=== PATIENT | female | born 1955 | race Asian ===

== ENCOUNTER 2022-10-31 12:42 | Inpatient (IN) | payer OTHER ==
--- OUTSIDE RECORDS SUMMARY | 2022-10-31 13:00 | XMS REPORT | Continuity of Care Document ---
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 2016-1 No Notes: Do [facility] 2-12 not l 23:00: refrigerat [place] 00 e Ciprofloxac 2015-1 No 500 mg, Mem oria in 05-07 Route: NG, l 22:00: Drug form: [place] 00 SUSP, [id number], Dosing Weight 70, kg, Start date: 03/06/16 16:00:00 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, Stop date: 03/13/16 6:00:00 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 Ciprofloxac 2016-1 No 500 mg, Mem oria in 05-07 Route: NG, l 22:00: Drug form: [place] 00 SUSP, [id number], Dosing Weight 70, kg, Start date: 03/06/16 16:00:00 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, Stop date: 03/13/16 6:00:00 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 Ciprofloxac 2016-1 No 500 mg, Mem oria in 2-12 Route: NG, l 22:00: Drug form: [place] 00 SUSP, [id number], Dosing Weight 70, kg, Start date: 03/06/16 16:00:00 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, Stop date: 03/13/16 6:00:00 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 Ciprofloxac 2016- No 500 mg, Mem oria in 2-12 Route: NG, l 22:00: Drug form: SUSP, [id number], Dosing Weight 70, kg, Start date: 03/06/16 16:00:00 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, Stop date: 03/13/16 6:00:00 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 Flomax 2015- No 0.8 mg, [facility] 2-12 Route: PO, l 14:30: After Breakfast, Dosing Weight 70, kg, Start date: 03/06/16 8:30:00 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, 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, Stop date: 04/04/16 8:30:00 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 Flomax 2015-03 No 0.8 mg, [facility] 2-12 Route: PO, l 14:30: After Breakfast, Dosing Weight 70, kg, Start date: 03/06/16 8:30:00 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, 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, Stop date: 04/04/16 8:30:00 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 Flomax 2015- No 0.8 mg, [facility] 2-12 Route: PO, l 14:30: After Breakfast, Dosing Weight 70, kg, Start date: 03/06/16 8:30:00 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, 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, Stop date: 04/04/16 8:30:00 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 Flomax 2015- No 0.8 mg, [facility] 2-12 Route: PO, l 14:30: After Breakfast, Dosing Weight 70, kg, Start date: 03/06/16 8:30:00 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, 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, Stop date: 04/04/16 8:30:00 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 Flomax 2015-03 No Notes: Memoria 2-11 (Same As: l 20:30: Flomax) "Do Not Crush" Flomax 2015-03 No Notes: [facility]oria 2-11 (Same As: l 20:30: Flomax) [place] 00 "Do Not Crush" Flomax 2015-03 No Notes: Memoria 2-11 (Same As: l 20:30: Flomax) [place] 00 "Do Not Crush" Flomax 2015-03 No Notes: [facility]oria 2-11 (Same As: l 20:30: Flomax) [place] 00 "Do Not Crush" Zosyn 2015-03 No Notes: [facility]oria 2-11 (Same as: l 00:00: Zosyn) [place] 00 Dosing based on Piperacill in component MEDICATION WASTE Product Size: 3375 mg Product Wasted: ___ mg Zosyn 2015-03 No Notes: [facility]oria 2-11 (Same as: l 00:00: Zosyn) [place] 00 Dosing based on Piperacill in component MEDICATION WASTE Product Size: 3375 mg Product Wasted: ___ mg Zosyn 2015-03 No Notes: Memoria 2-11 (Same as: l 00:00: Zosyn) [place] 00 Dosing based on Piperacill in component MEDICATION WASTE Product Size: 3375 mg Product Wasted: ___ mg Zosyn 2015-03 No Notes: Memoria 2-11 (Same as: l 00:00: Zosyn) [place] 00 Dosing based on Piperacill in component MEDICATION WASTE Product Size: 3375 mg Product Wasted: ___ mg Zosyn 2015-03 No Notes: Memoria 2-10 (Same as: l 22:00: Zosyn) [place] 00 Dosing based on Piperacill in component MEDICATION WASTE Product Size: 3375 mg Product Wasted: ___ mg Vancomycin 2015- No 2001 mg: Me moria 2-10 infuse l 22:00: over 2.5 [place] 00 hours MEDICATION WASTE Product Size: 1000 mg Product Wasted: ___ mg Zosyn 2015-03 No Notes: Memoria 2-10 (Same as: l 22:00: Zosyn) [place] 00 Dosing based on Piperacill in component MEDICATION WASTE Product Size: 3375 mg Product Wasted: ___ mg Vancomycin 2015- No 2001 mg: Me moria 2-10 infuse l 22:00: over 2.5 [place] 00 hours MEDICATION WASTE Product Size: 1000 mg Product Wasted: ___ mg Zosyn 2015-03 No Notes: [facility] 2-10 (Same as: l 22:00: Zosyn) [place] 00 Dosing based on Piperacill in component MEDICATION WASTE Product Size: 3375 mg Product Wasted: ___ mg Vancomycin 2015-03 No 2001 mg: Me moria 2-10 infuse l 22:00: over 2.5 [place] 00 hours MEDICATION WASTE Product Size: 1000 mg Product Wasted: ___ mg Zosyn 2015-03 No Notes: [facility] 2-10 (Same as: l 22:00: Zosyn) [place] 00 Dosing based on Piperacill in component MEDICATION WASTE Product Size: 3375 mg Product Wasted: ___ mg Vancomycin 2015-03 No 2001 mg: Me moria 2-10 infuse l 22:00: over 2.5 [place] 00 hours MEDICATION WASTE Product Size: 1000 mg Product Wasted: ___ mg sennosides, 2015-03 No Notes: Jamie jp CHCF 2-09 (Same as: l 22:00: Senokot) [place] sennosides, 2015-03 No Notes: Jamie jp CHCF 2-09 (Same as: l 22:00: Senokot) [place] sennosides, 2015-03 No Notes: Jamie jp CHCF 2-09 (Same as: l 22:00: Senokot) [place] sennosides, 2015-03 No Notes: Jamie jp CHCF 2-09 (Same as: l 22:00: Senokot) [place] Dulcolax 2015-03 No Notes: [facility] Laxative 2-09 (Same As: l 19:58: Dulcolax, [place] 00 Bisco-Lax) Dulcolax 2015-03 No Notes: [facility] Laxative 2-09 (Same As: l 19:58: Dulcolax, [place] 00 Bisco-Lax) Dulcolax 2015-03 No Notes: [facility] Laxative 2-09 (Same As: l 19:58: Dulcolax, [place] 00 Bisco-Lax) Dulcolax 2015-03 No Notes: [facility] Laxative 2-09 (Same As: l 19:58: Dulcolax, [place] 00 Bisco-Lax) Isolyte S 2015-03 No Notes: Memori a (PH 7.4) 2-06 (Same as: l 1000 mL 06:15: Isolyte S Joann nn 1,000 mL 00 PH 7.4) Isolyte S 2015-03 No Notes: Memori a (PH 7.4) 2-06 (Same as: l 1000 mL 06:15: Isolyte S Joann nn 1,000 mL 00 PH 7.4) Isolyte S 2015-03 No Notes: Memori a (PH 7.4) 2-06 (Same as: l 1000 mL 06:15: Isolyte S Joann nn 1,000 mL 00 PH 7.4) Isolyte S 2015-03 No Notes: [facility]ori a (PH 7.4) 2-06 (Same as: l 1000 mL 06:15: Isolyte S Joann nn 1,000 mL 00 PH 7.4) insulin 2015-03 No 45 unit, Memori a detemir 2-06 Route: l 03:00: SUB-Q, [place] 00 Q12H, Dosing Weight 70, kg, Start date: 02/28/16 21:00:00 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, 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, Stop date: 03/29/16 9:00:00 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 insulin 2015- No 45 unit, Memori a detemir 2-06 Route: l 03:00: SUB-Q, [place] 00 Q12H, Dosing Weight 70, kg, Start date: 02/28/16 21:00:00 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, 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, Stop date: 03/29/16 9:00:00 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 insulin 2015- No 45 unit, Memori a detemir 2-06 Route: l 03:00: SUB-Q, [place] 00 Q12H, Dosing Weight 70, kg, Start date: 02/28/16 21:00:00 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, 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, Stop date: 03/29/16 9:00:00 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 insulin 2015- No 45 unit, Memori a detemir 2-06 Route: l 03:00: SUB-Q, [place] 00 Q12H, Dosing Weight 70, kg, Start date: 02/28/16 21:00:00 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, 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, Stop date: 03/29/16 9:00:00 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 Insulin 2015-03 No 60 units) Jamie jp regular 2-05 WASTE: F/P l 20:31: - Black; E [place] [facility] Trash Bin Stable for 28 days at room temperatur e Expires in days from ____Date Glucagon 2015-03 No 1 mg, Memoria 2-05 Route: IM, l 20:31: Drug form: [place] 00 PDR/INJ, PRN, Dosing Weight 70, kg, PRN Blood Glucose Results, Start date: 02/28/16 14:31:00 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, 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, Stop date: 04/19/16 12:37:00 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 Dextrose 2015-03 No 25 gm, 50 Jamie jp 50% Syringe 2-05 mL, Route: l 20:31: IVP, Drug Form: INJ, Dosing Weight 70, kg, PRN, PRN Blood Glucose Results, Start date: 02/28/16 14:31:00 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, 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, Stop date: 04/19/16 12:37:00 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 Insulin 2015-03 No 60 units) Jamie jp regular 2-05 WASTE: F/P l 20:31: - Black; E [place] [facility] Trash Bin Stable for 28 days at room temperatur e Expires in days from ____Date Glucagon 2015-03 No 1 mg, Mem[facility] 2-05 Route: IM, l 20:31: Drug form: [place] 00 PDR/INJ, PRN, Dosing Weight 70, kg, PRN Blood Glucose Results, Start date: 02/28/16 14:31:00 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, 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, Stop date: 04/19/16 12:37:00 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 Dextrose 2015-03 No 25 gm, 50 Jamie jp 50% Syringe 2-05 mL, Route: l 20:31: IVP, Drug Form: INJ, Dosing Weight 70, kg, PRN, PRN Blood Glucose Results, Start date: 02/28/16 14:31:00 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, 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, Stop date: 04/19/16 12:37:00 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 Insulin 2015-03 No 60 units) Jaime jp regular 2-05 WASTE: F/P l 20:31: - Black; E [place] [facility] Trash Bin Stable for 28 days at room temperatur e Expires in days from ____Date Glucagon 2015-03 No 1 mg, Memoria 2-05 Route: IM, l 20:31: Drug form: [place] 00 PDR/INJ, PRN, Dosing Weight 70, kg, PRN Blood Glucose Results, Start date: 02/28/16 14:31:00 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, 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, Stop date: 04/19/16 12:37:00 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 Dextrose 2015-03 No 25 gm, 50 Jamie jp 50% Syringe 2-05 mL, Route: l 20:31: IVP, Drug Form: INJ, Dosing Weight 70, kg, PRN, PRN Blood Glucose Results, Start date: 02/28/16 14:31:00 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, 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, Stop date: 04/19/16 12:37:00 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 Insulin 2015-03 No 60 units) Jamie jp regular 2-05 WASTE: F/P l 20:31: - Black; E [place] - [facility] Trash Bin Stable for 28 days at room temperatur e Expires in days from ____Date Glucagon 2015-03 No 1 mg, Memoria 2-05 Route: IM, l 20:31: Drug form: [place] 00 PDR/INJ, PRN, Dosing Weight 70, kg, PRN Blood Glucose Results, Start date: 02/28/16 14:31:00 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, 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, Stop date: 04/19/16 12:37:00 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 Dextrose 2015-03 No 25 gm, 50 Jamie jp 50% Syringe 2-05 mL, Route: l 20:31: IVP, Drug Form: INJ, Dosing Weight 70, kg, PRN, PRN Blood Glucose Results, Start date: 02/28/16 14:31:00 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, 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, Stop date: 04/19/16 12:37:00 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 Neurontin 2015-03 No Notes: Memori a 2-04 (Same as: l 07:15: Neurontin) [place] Neurontin 2015-03 No Notes: Memori a 2-04 (Same as: l 07:15: Neurontin) [place] Neurontin 2015-03 No Notes: Memori a 2-04 (Same as: l 07:15: Neurontin) [place] Neurontin 2015-03 No Notes: Memori a 2-04 (Same as: l 07:15: Neurontin) [place] Dextrose 2015-03 No 12.5 gm, Memor ia 50% Syringe 2-02 25 mL, l 05:16: Route: [place] 00 IVP, Drug Form: INJ, Dosing Weight 70, kg, PRN, PRN Blood Glucose Results, Start date: 02/24/16 23:16:00 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, 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, Stop date: 03/25/16 23:15:00 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 Insulin, 2015-03 No Notes: Memoria Aspart, 2-02 Roll in l Human 05:16: palms of [place] 00 hands gently; Do not shake vigorously . (Same as: NovoLOG) "single patient use only" WASTE: F/P - Black; E - [facility] Trash Bin Stable for 28 days at room temperatur e. Expires in days from ____Date Glucagon 2015-03 No 1 mg, Memoria 2-02 Route: IM, l 05:16: Drug form: [place] 00 PDR/INJ, PRN, Dosing Weight 70, kg, PRN Blood Glucose Results, Start date: 02/24/16 23:16:00 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, 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, Stop date: 03/25/16 23:15:00 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 Dextrose 2015-03 No 12.5 gm, Memor ia 50% Syringe 2-02 25 mL, l 05:16: Route: [place] 00 IVP, Drug Form: INJ, Dosing Weight 70, kg, PRN, PRN Blood Glucose Results, Start date: 02/24/16 23:16:00 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, 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, Stop date: 03/25/16 23:15:00 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 Insulin, 2015-03 No Notes: Memoria Aspart, 2-02 Roll in l Human 05:16: palms of [place] 00 hands gently; Do not shake vigorously . (Same as: NovoLOG) "single patient use only" WASTE: F/P - Black; E - [facility] Trash Bin Stable for 28 days at room temperatur e. Expires in days from ____Date Glucagon 2015-03 No 1 mg, Memoria 2-02 Route: IM, l 05:16: Drug form: [place] 00 PDR/INJ, PRN, Dosing Weight 70, kg, PRN Blood Glucose Results, Start date: 02/24/16 23:16:00 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, 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, Stop date: 03/25/16 23:15:00 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 Dextrose 2015-03 No 12.5 gm, Memor ia 50% Syringe 2-02 25 mL, l 05:16: Route: [place] 00 IVP, Drug Form: INJ, Dosing Weight 70, kg, PRN, PRN Blood Glucose Results, Start date: 02/24/16 23:16:00 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, 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, Stop date: 03/25/16 23:15:00 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 Insulin, 2015-03 No Notes: Memoria Aspart, 2-02 Roll in l Human 05:16: palms of [place] 00 hands gently; Do not shake vigorously . (Same as: NovoLOG) "single patient use only" WASTE: F/P - Black; E - [facility] Trash Bin Stable for 28 days at room temperatur e. Expires in days from ____Date Glucagon 2015-03 No 1 mg, Memoria 2-02 Route: IM, l 05:16: Drug form: [place] 00 PDR/INJ, PRN, Dosing Weight 70, kg, PRN Blood Glucose Results, Start date: 02/24/16 23:16:00 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, 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, Stop date: 03/25/16 23:15:00 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 Dextrose 2015-03 No 12.5 gm, Memor ia 50% Syringe 2-02 25 mL, l 05:16: Route: [place] 00 IVP, Drug Form: INJ, Dosing Weight 70, kg, PRN, PRN Blood Glucose Results, Start date: 02/24/16 23:16:00 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, 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, Stop date: 03/25/16 23:15:00 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 Insulin, 2015-03 No Notes: Memoria Aspart, - Roll in l Human 05:16: palms of [place] 00 hands gently; Do not shake vigorously . (Same as: NovoLOG) "single patient use only" WASTE: F/P - Black; E - [facility] Trash Bin Stable for 28 days at room temperatur e. Expires in days from ____Date Glucagon 2015-03 No 1 mg, Memoria 04-27 Route: IM, l 05:16: Drug form: [place] 00 PDR/INJ, PRN, Dosing Weight 70, kg, PRN Blood Glucose Results, Start date: 02/24/16 23:16:00 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, 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, Stop date: 03/25/16 23:15:00 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 Isolyte S 2015-03 No Notes: Memori a PH-7.4 2-01 (Same as: l (Bolus) IV 02:27: Isolyte S [place] 00 PH7.4) Isolyte S 2015-03 No Notes: Memori a PH-7.4 2-01 (Same as: l (Bolus) IV 02:27: Isolyte S [place] 00 PH7.4) Isolyte S 2015-03 No Notes: Memori a PH-7.4 2-01 (Same as: l (Bolus) IV 02:27: Isolyte S [place] 00 PH7.4) Isolyte S 2015-03 No Notes: Memori a PH-7.4 2-01 (Same as: l (Bolus) IV 02:27: Isolyte S [place] 00 PH7.4) insulin 2015-03 No Notes: Memoria detemir 1-30 Same as l 15:00: Levemir Do [place] 00 not hold insulin without contacting prescriber WASTE: F/P - Black; E - [facility] Trash Bin "single patient use only" chlorhexidi 2015-03 No Notes: Jamie jp ne -30 (Same As: l gluconate 15:00: Peridex) Herm erwin 1.2 MG/ML 00 Mouthwash [Peridex] insulin 2015-03 No Notes: Memoria detemir 1-30 Same as l 15:00: Levemir Do [place] 00 not hold insulin without contacting prescriber WASTE: F/P - Black; E - [facility] Trash Bin "single patient use only" chlorhexidi 2015-03 No Notes: Jamie jp ne 1-30 (Same As: l gluconate 15:00: Peridex) Herm erwin 1.2 MG/ML 00 Mouthwash [Peridex] insulin 2015-03 No Notes: Memoria detemir 1-30 Same as l 15:00: Levemir Do [place] 00 not hold insulin without contacting prescriber WASTE: F/P - Black; E - [facility] Trash Bin "single patient use only" chlorhexidi 2015-03 No Notes: Jamie jp ne -30 (Same As: l gluconate 15:00: Peridex) Herm erwin 1.2 MG/ML 00 Mouthwash [Peridex] insulin 2015-03 No Notes: Memoria detemir 1-30 Same as l 15:00: Levemir Do [place] 00 not hold insulin without contacting prescriber WASTE: F/P - Black; E - [facility] Trash Bin "single patient use only" chlorhexidi 2015-03 No Notes: Jamie jp ne -30 (Same As: l gluconate 15:00: Peridex) Herm erwin 1.2 MG/ML 00 Mouthwash [Peridex] Flomax 2015-03 No Notes: Memoria 1-30 (Same As: l 14:55: Flomax) [place] 00 "Do Not Crush" Flomax 2015-03 No Notes: Memoria 1-30 (Same As: l 14:55: Flomax) [place] 00 "Do Not Crush" Flomax 2015-03 No Notes: Memoria 1-30 (Same As: l 14:55: Flomax) [place] 00 "Do Not Crush" Flomax 2015-03 No Notes: Memoria 1-30 (Same As: l 14:55: Flomax) [place] 00 "Do Not Crush" insulin 2015-03 No Notes: Memoria detemir 1-30 Same as l 03:00: Levemir Do [place] 00 not hold insulin without contacting prescriber WASTE: F/P - Black; E - [facility] Trash Bin "single patient use only" insulin 2015-03 No Notes: Memoria detemir 1-30 Same as l 03:00: Levemir Do [place] 00 not hold insulin without contacting prescriber WASTE: F/P - Black; E - [facility] Trash Bin "single patient use only" insulin 2015-03 No Notes: Memoria detemir 1-30 Same as l 03:00: Levemir Do [place] 00 not hold insulin without contacting prescriber WASTE: F/P - Black; E - [facility] Trash Bin "single patient use only" insulin 2015-03 No Notes: Memoria detemir 1-30 Same as l 03:00: Levemir Do [place] 00 not hold insulin without contacting prescriber WASTE: F/P - Black; E - [facility] Trash Bin "single patient use only" Miralax 2015-03 No Notes: Memoria 1-29 Dissolve l 15:00: in 8 oz of [place] 00 water or juice. (Same as: Miralax) Miralax 2015-03 No Notes: Memoria 1-29 Dissolve l 15:00: in 8 oz of [place] 00 water or juice. (Same as: Miralax) Miralax 2015-03 No Notes: Memoria 1-29 Dissolve l 15:00: in 8 oz of [place] 00 water or juice. (Same as: Miralax) Miralax 2015-03 No Notes: Memoria 1-29 Dissolve l 15:00: in 8 oz of [place] 00 water or juice. (Same as: Miralax) Iohexol 2015-03 No 60 mL, Memoria 04-22 Route: l 18:04: IVP, Drug [place] 00 Form: SOLN, Dosing Weight 70, kg, ONCALL, STAT, Start date: 02/21/16 12:04:00 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, Duration: 1 doses or times, Dose = 2.2ml/kg, Max dose = 100ml -- "To be infused by Radiology Staff ONLY" Iohexol 2015-03 No 60 mL, Memoria 04-22 Route: l 18:04: IVP, Drug [place] 00 Form: SOLN, Dosing Weight 70, kg, ONCALL, STAT, Start date: 02/21/16 12:04:00 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, Duration: 1 doses or times, Dose = 2.2ml/kg, Max dose = 100ml -- "To be infused by Radiology Staff ONLY" Iohexol 2015-03 No 60 mL, Memoria 04-22 Route: l 18:04: IVP, Drug [place] 00 Form: SOLN, Dosing Weight 70, kg, ONCALL, STAT, Start date: 02/21/16 12:04:00 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, Duration: 1 doses or times, Dose = 2.2ml/kg, Max dose = 100ml -- "To be infused by Radiology Staff ONLY" Iohexol 2015-03 No 60 mL, Memoria 1-28 Route: l 18:04: IVP, Drug [place] 00 Form: SOLN, Dosing Weight 70, kg, ONCALL, STAT, Start date: 02/21/16 12:04:00 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, Duration: 1 doses or times, Dose = 2.2ml/kg, Max dose = 100ml -- "To be infused by Radiology Staff ONLY" senna 10.29 No Notes: Memori a mg oral 1-28 (Same as: l tablet 15:00: Senokot) [place] 00 docusate 2015-03 No Notes: Memoria sodium 1-28 (Same as: l 15:00: Colace) [place] 00 (Do Not Crush) senna 8.2015-03 No Notes: Memori a mg oral 1-28 (Same as: l tablet 15:00: Senokot) [place] docusate 2015-03 No Notes: Memoria sodium 1-28 (Same as: l 15:00: Colace) [place] 00 (Do Not Crush) senna 8.2015-03 No Notes: Memori a mg oral 1-28 (Same as: l tablet 15:00: Senokot) [place] 00 docusate 2015-03 No Notes: Memoria sodium 1-28 (Same as: l 15:00: Colace) [place] (Do Not Crush) senna 8.6 2015-03 No Notes: Memori a mg oral 1-28 (Same as: l tablet 15:00: Senokot) [place] 00 docusate 2015-03 No Notes: Memoria sodium 1-28 (Same as: l 15:00: Colace) (Do Not Crush) insulin 2015-03 No Notes: Memoria detemir 1-28 Same as l 03:00: Levemir Do [place] 00 not hold insulin without contacting prescriber WASTE: F/P - Black; E - [facility] Trash Bin "single patient use only" insulin 2015-03 No Notes: Memoria detemir 04-22 Same as l 03:00: Levemir Do [place] 00 not hold insulin without contacting prescriber WASTE: F/P - Black; E - [facility] Trash Bin "single patient use only" insulin 2015-03 No Notes: Memoria detemir 04-22 Same as l 03:00: Levemir Do [place] 00 not hold insulin without contacting prescriber WASTE: F/P - Black; E - [facility] Trash Bin "single patient use only" insulin 2015-03 No Notes: Memoria detemir 04-22 Same as l 03:00: Levemir Do [place] 00 not hold insulin without contacting prescriber WASTE: F/P - Black; E - [facility] Trash Bin "single patient use only" Flomax 2015-03 No Notes: Memoria 04-21 (Same As: l 23:00: Flomax) [place] 00 "Do Not Crush" Flomax 2015-03 No Notes: Memoria 04-21 (Same As: l 23:00: Flomax) [place] 00 "Do Not Crush" Flomax 2015-03 No Notes: Memoria 04-21 (Same As: l 23:00: Flomax) [place] 00 "Do Not Crush" Flomax 2015-03 No Notes: Memoria 04-21 (Same As: l 23:00: Flomax) [place] 00 "Do Not Crush" insulin 2015-03 No Notes: Memoria detemir 04-21 Same as l 03:00: Levemir Do [place] 00 not hold insulin without contacting prescriber WASTE: F/P - Black; E - [facility] Trash Bin "single patient use only" insulin 2015-03 No Notes: Memoria detemir 04-21 Same as l 03:00: Levemir Do [place] 00 not hold insulin without contacting prescriber WASTE: F/P - Black; E - [facility] Trash Bin "single patient use only" insulin 2015-03 No Notes: Memoria detemir 04-21 Same as l 03:00: Levemir Do [place] 00 not hold insulin without contacting prescriber WASTE: F/P - Black; E - [facility] Trash Bin "single patient use only" insulin 2015-03 No Notes: Memoria detemir 04-21 Same as l 03:00: Levemir Do [place] 00 not hold insulin without contacting prescriber WASTE: F/P - Black; E - [facility] Trash Bin "single patient use only" tamsulosin 2015-03 No Notes: Memor ia 04-21 (Same As: l 01:07: Flomax) [place] 00 "Do Not Crush" tamsulosin 2015-03 No Notes: Memor ia 04-21 (Same As: l 01:07: Flomax) [place] 00 "Do Not Crush" tamsulosin 2015-03 No Notes: Memor ia 04-21 (Same As: l 01:07: Flomax) [place] 00 "Do Not Crush" tamsulosin 2015-03 No Notes: Memor ia 04-21 (Same As: l 01:07: Flomax) [place] 00 "Do Not Crush" Vancomycin 2015-03 No 2001 mg: Me moria 1-25 infuse l 20:00: over 2.5 [place] 00 hours Vancomycin 2015-03 No 2001 mg: Me moria 1-25 infuse l 20:00: over 2.5 [place] 00 hours Vancomycin 2015-03 No 2001 mg: Me moria 1-25 infuse l 20:00: over 2.5 [place] 00 hours Vancomycin 2015-03 No 2001 mg: Me moria 1-25 infuse l 20:00: over 2.5 [place] 00 hours insulin 2015-03 No Notes: Memoria detemir 04-19 Same as l 15:18: Levemir Do not hold insulin without contacting prescriber WASTE: F/P - Black; E - [facility] Trash Bin "single patient use only" insulin 2015-03 No Notes: Memoria detemir 04-19 Same as l 15:18: Levemir Do not hold insulin without contacting prescriber WASTE: F/P - Black; E - [facility] Trash Bin "single patient use only" insulin 2015-03 No Notes: Memoria detemir 04-19 Same as l 15:18: Levemir Do not hold insulin without contacting prescriber WASTE: F/P - Black; E - [facility] Trash Bin "single patient use only" insulin 2015-03 No Notes: Memoria detemir 04-19 Same as l 15:18: Levemir Do 00 not hold insulin without contacting prescriber WASTE: F/P - Black; E - [facility] Trash Bin "single patient use only" Dextrose 2015-03 No 12.5 gm, Memor ia 50% Syringe 1-25 25 mL, l 15:17: Route: [place] 00 IVP, Drug Form: INJ, Dosing Weight 65, kg, PRN, PRN Abnormal Lab Result, 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, 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, Stop date: 03/19/16 9:16:00 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, For FSBG 40 mg/dL - 60 mg/dL Insulin 2015-03 No 60 units) Jamie jp regular 04-19 WASTE: F/P l 15:17: - Black; E [place] - [facility] Trash Bin Stable for 28 days at room temperatur e Expires in days from ____Date Dextrose 2015-03 No 12.5 gm, Memor ia 50% Syringe 1-25 25 mL, l 15:17: Route: [place] 00 IVP, Drug Form: INJ, Dosing Weight 65, kg, PRN, PRN Abnormal Lab Result, 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, 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, 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: 03/19/16 9:16:00 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, For FSBG 40 mg/dL - 60 mg/dL Insulin 2015-03 No 60 units) Jamie jp regular 04-19 WASTE: F/P l 15:17: - Black; E [place] - [facility] Stable for 28 days at room temperatur e Expires in days from ____Date Dextrose 2015-03 No 12.5 gm, [facility] 50% Syringe 1-25 25 mL, l 15:17: Route: [place] 00 IVP, Drug Form: INJ, Dosing Weight 65, kg, PRN, PRN Abnormal Lab Result, 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, 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, Stop date: 03/19/16 9:16:00 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, For [facility] 40 mg/dL - 60 mg/dL Insulin 2015-03 No 60 units) Jamie jp regular 04-19 WASTE: F/P l 15:17: - Black; E [place] 00 - [facility] Trash [facility] Stable for 28 days at room temperatur e Expires in days from ____Date Dextrose 2015-03 No 12.5 gm, [facility] 50% Syringe 1-25 25 mL, l 15:17: Route: [place] 00 IVP, Drug Form: INJ, Dosing Weight 65, kg, PRN, PRN Abnormal Lab Result, 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, 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, Stop date: 03/19/16 9:16:00 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, For [facility] 40 mg/dL - 60 mg/dL Insulin 2015-03 No 60 units) Jamie jp regular -25 WASTE: F/P l 15:17: - Black; E [place] - [facility] Stable for 28 days at room temperatur e Expires in days from ____Date Insulin 2015-03 No Notes: Memoria regular 100 1-25 (Same as: l unit + 15:01: Humulin R Buzz n sodium 00 and chloride NovoLIN R) 0.9% INJ 99 WASTE: F/P mL - Black; E - [facility] Trash [facility] (Do not shake) Dextrose 2015-03 No 25 gm, 50 Jamie jp 50% Syringe 1-25 mL, Route: l 15:01: IVP, Drug [place] 00 Form: INJ, Dosing Weight 65, kg, PRN, PRN Abnormal Lab Result, Start date: 02/18/16 9:01:00 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, 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, Stop date: 03/19/16 9:00:00 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, For FSBG < 40 mg/dL Insulin 2015-03 No Notes: Memoria regular 100 1-25 (Same as: l unit + 15:01: Humulin R Buzz n sodium 00 and chloride NovoLIN R) 0.9% INJ 99 WASTE: F/P mL - Black; E - [facility] Trash [facility] (Do not shake) Dextrose 2015-03 No 25 gm, 50 Jamie jp 50% Syringe 1-25 mL, Route: l 15:01: IVP, Drug [place] 00 Form: INJ, Dosing Weight 65, kg, PRN, PRN Abnormal Lab Result, Start date: 02/18/16 9:01:00 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, 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, Stop date: 03/19/16 9:00:00 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, For FSBG < 40 mg/dL Insulin 2015-03 No Notes: [facility] regular 100 1-25 (Same as: l unit + 15:01: Humulin R Buzz n sodium 00 and chloride NovoLIN R) 0.9% INJ 99 WASTE: F/P mL - Black; E - [facility] Trash [facility] (Do not shake) Dextrose 2015-03 No 25 gm, 50 Jamie jp 50% Syringe 1-25 mL, Route: l 15:01: IVP, Drug [place] 00 Form: INJ, Dosing Weight 65, kg, PRN, PRN Abnormal Lab Result, Start date: 02/18/16 9:01:00 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, 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, Stop date: 03/19/16 9:00:00 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, For FSBG < 40 mg/dL Insulin 2015-03 No Notes: Memoria regular 100 1-25 (Same as: l unit + 15:01: Humulin R Buzz n sodium 00 and chloride NovoLIN R) 0.9% INJ 99 WASTE: F/P mL - Black; E - [facility] Trash [facility] (Do not shake) Dextrose 2015-03 No 25 gm, 50 Jamie jp 50% Syringe 1-25 mL, Route: l 15:01: IVP, Drug [place] 00 Form: INJ, Dosing Weight 65, kg, PRN, PRN Abnormal Lab Result, Start date: 02/18/16 9:01:00 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, 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, Stop date: 03/19/16 9:00:00 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, For FSBG < 40 mg/dL Insulin 2015-03 No 60 units) Jamie jp regular -24 WASTE: F/P l 22:20: - Black; E [place] - [facility] Trash [facility] Stable for 28 days at room temperatur e Expires in days from ____Date Dextrose 2015-03 No 12.5 gm, Memor ia 50% Syringe 1-24 25 mL, l 22:20: Route: [place] 00 IVP, Drug Form: INJ, Dosing Weight 65, kg, PRN, PRN Abnormal Lab Result, Start date: 02/17/16 16:20:00 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, 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, Stop date: 03/18/16 16:19:00 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, For FSBG 40 mg/dL - 60 mg/dL Insulin 2015-03 No 60 units) Jamie jp regular 04-18 WASTE: F/P l 22:20: - Black; E [place] - [facility] Trash [facility] Stable for 28 days at room temperatur e Expires in days from ____Date Dextrose 2015-03 No 12.5 gm, Memor ia 50% Syringe 1-24 25 mL, l 22:20: Route: [place] 00 IVP, Drug Form: INJ, Dosing Weight 65, kg, PRN, PRN Abnormal Lab Result, Start date: 02/17/16 16:20:00 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, 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, Stop date: 03/18/16 16:19:00 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, For FSBG 40 mg/dL - 60 mg/dL Insulin 2015-03 No 60 units) Jamie jp regular 04-18 WASTE: F/P l 22:20: - Black; E [place] - [facility] Trash [facility] Stable for 28 days at room temperatur e Expires in days from ____Date Dextrose 2015-03 No 12.5 gm, Memor ia 50% Syringe 1-24 25 mL, l 22:20: Route: [place] 00 IVP, Drug Form: INJ, Dosing Weight 65, kg, PRN, PRN Abnormal Lab Result, Start date: 02/17/16 16:20:00 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, 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, Stop date: 03/18/16 16:19:00 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, For FSBG 40 mg/dL - 60 mg/dL Insulin 2015-03 No 60 units) Jamie jp regular 04-18 WASTE: F/P l 22:20: - Black; E [place] - [facility] Trash [facility] Stable for 28 days at room temperatur e Expires in days from ____Date Dextrose 2015-03 No 12.5 gm, Memor ia 50% Syringe 1-24 25 mL, l 22:20: Route: [place] 00 IVP, Drug Form: INJ, Dosing Weight 65, kg, PRN, PRN Abnormal Lab Result, Start date: 02/17/16 16:20:00 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, 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, Stop date: 03/18/16 16:19:00 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, For FSBG 40 mg/dL - 60 mg/dL Dextrose 2015-03 No 25 gm, 50 Jamie jp 50% Syringe 1-24 mL, Route: l 20:32: IVP, Drug [place] 00 Form: INJ, Dosing Weight 65, kg, PRN, PRN Abnormal Lab Result, Start date: 02/17/16 14:32:00 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, 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, Stop date: 03/18/16 14:31:00 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, For FSBG < 40 mg/dL Insulin 2015-03 No Notes: [facility] regular 100 1-24 (Same as: l unit + 20:32: Humulin R Buzz n sodium 00 and chloride NovoLIN R) 0.9% INJ WASTE: F/P 100 mL - Black; E - [facility] Trash [facility] (Do not shake) Dextrose 2015-03 No 25 gm, 50 Jamie jp 50% Syringe 1-24 mL, Route: l 20:32: IVP, Drug [place] 00 Form: INJ, Dosing Weight 65, kg, PRN, PRN Abnormal Lab Result, Start date: 02/17/16 14:32:00 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, 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, Stop date: 03/18/16 14:31:00 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, For [facility]SBG < 40 mg/dL Insulin 2015-03 No Notes: [facility] regular 100 1-24 (Same as: l unit + 20:32: Humulin R Buzz n sodium 00 and chloride NovoLIN R) 0.9% INJ WASTE: F/P 100 mL - Black; E - [facility] Trash [facility] (Do not shake) Dextrose 2015-03 No 25 gm, 50 Jamie jp 50% Syringe 1-24 mL, Route: l 20:32: IVP, Drug [place] 00 Form: INJ, Dosing Weight 65, kg, PRN, PRN Abnormal Lab Result, Start date: 02/17/16 14:32:00 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, 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, Stop date: 03/18/16 14:31:00 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, For FSBG < 40 mg/dL Insulin 2015-03 No Notes: [facility] regular 100 1-24 (Same as: l unit + 20:32: Humulin R Buzz n sodium 00 and chloride NovoLIN R) 0.9% INJ WASTE: F/P 100 mL - Black; E - [facility] Trash [facility] (Do not shake) Dextrose 2015-03 No 25 gm, 50 Jamie jp 50% Syringe 1-24 mL, Route: l 20:32: IVP, Drug Form: INJ, Dosing Weight 65, kg, PRN, PRN Abnormal Lab Result, Start date: 02/17/16 14:32:00 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, 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, Stop date: 03/18/16 14:31:00 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, For FSBG < 40 mg/dL Insulin 2015-03 No Notes: [facility] regular 100 1-24 (Same as: l unit + 20:32: Humulin R Buzz n sodium 00 and chloride NovoLIN R) 0.9% INJ WASTE: F/P 100 mL - Black; E - [facility] Trash [facility] (Do not shake) glimepiride 2015-03 No Notes: Jamie jp 1-24 (Same as: l 18:00: Amaryl) glimepiride 2015-03 No Notes: Jamie jp 1-24 (Same as: l 18:00: Amaryl) glimepiride 2015-03 No Notes: Jamie jp 1-24 (Same as: l 18:00: Amaryl) glimepiride 2015-03 No Notes: Jamie jp 1-24 (Same as: l 18:00: Amaryl) PHOS-NaK 2015-03 No Notes: [facility] 1-24 (Same as: l 15:00: Phos-NaK) Each 1.5 gm pkt has 250mg phosphorou s. Mix w/2.5oz water and stir. PHOS-NaK 2015-03 No Notes: [facility] 1-24 (Same as: l 15:00: Phos-NaK) [place] Each 1.5 gm pkt has 250mg phosphorou s. Mix w/2.5oz water and stir. PHOS-NaK 2015-03 No Notes: [facility] 1-24 (Same as: l 15:00: Phos-NaK) [place] Each 1.5 gm pkt has 250mg phosphorou s. Mix w/2.5oz water and stir. PHOS-NaK 2015- No Notes: [facility] 24 (Same as: l 15:00: Phos-NaK) [place] 00 Each 1.5 gm pkt has 250mg phosphorou s. Mix w/2.5oz water and stir. Vancomycin 2015-03 No 2000 mg: Me moria 04-18 infuse l 03:00: over 2.5 [place] 00 hours MEDICATION WASTE Product Size: 1000 mg Product Wasted: ___ mg Vancomycin 2015-03 No 2000 mg: Me moria 04-18 infuse l 03:00: over 2.5 [place] 00 hours MEDICATION WASTE Product Size: 1000 mg Product Wasted: ___ mg Vancomycin 2015-03 No 2000 mg: Me moria 04-18 infuse l 03:00: over 2.5 [place] 00 hours MEDICATION WASTE Product Size: 1000 mg Product Wasted: ___ mg Vancomycin 2015-03 No 2000 mg: Me moria 04-18 infuse l 03:00: over 2.5 [place] 00 hours MEDICATION WASTE Product Size: 1000 mg Product Wasted: ___ mg Vancomycin 2015-03 No 2000 mg: Me moria 04-18 infuse l 00:00: over 2.5 [place] 00 hours MEDICATION WASTE Product Size: 1000 mg Product Wasted: ___ mg Vancomycin 2015-03 No 2000 mg: Me moria 04-18 infuse l 00:00: over 2.5 [place] 00 hours MEDICATION WASTE Product Size: 1000 mg Product Wasted: ___ mg Vancomycin 2015-03 No 2000 mg: Me moria 04-18 infuse l 00:00: over 2.5 [place] 00 hours MEDICATION WASTE Product Size: 1000 mg Product Wasted: ___ mg Vancomycin 2015- No 2000 mg: Me moria 04-18 infuse l 00:00: over 2.5 [place] 00 hours MEDICATION WASTE Product Size: 1000 mg Product Wasted: ___ mg Ceftazidime 2015-03 No Notes: Jamie jp 04-17 (Same as: l 17:00: Fortaz) [place] 00 MEDICATION WASTE Product Size: 1000 mg Product Wasted: ___ mg Ceftazidime 2015-03 No Notes: Jamie jp 04-17 (Same as: l 17:00: Fortaz) [place] 00 MEDICATION WASTE Product Size: 1000 mg Product Wasted: ___ mg Ceftazidime 2015-03 No Notes: Jamie jp 04-17 (Same as: l 17:00: Fortaz) [place] 00 MEDICATION WASTE Product Size: 1000 mg Product Wasted: ___ mg Ceftazidime 2015-03 No Notes: Jamie jp 04-17 (Same as: l 17:00: Fortaz) [place] 00 MEDICATION WASTE Product Size: 1000 mg Product Wasted: ___ mg Vancomycin 2015-03 No 2000 mg: Me moria 04-17 infuse l 16:22: over 2.5 [place] 00 hours Vancomycin 2015-03 No 2001 mg: Me moria -23 infuse l 16:22: over 2.5 [place] 00 hours Vancomycin 2015-03 No 2001 mg: Me moria -23 infuse l 16:22: over 2.5 [place] 00 hours Vancomycin 2015-03 No 2001 mg: Me moria 1-23 infuse l 16:22: over 2.5 [place] 00 hours Levemir 2015-03 No 15 unit, Memori a 04-17 Route: l 15:00: SUB-Q, [place] 00 Drug form: SOLN, Q12H, Dosing Weight 65, kg, Start date: 02/16/16 9:00:00 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, 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, Stop date: 03/16/16 21:00:00 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 Levemir 2015-03 No 15 unit, Memori a 04-17 Route: l 15:00: SUB-Q, [place] 00 Drug form: SOLN, Q12H, Dosing Weight 65, kg, Start date: 02/16/16 9:00:00 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, 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, Stop date: 03/16/16 21:00:00 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 Levemir 2015-03 No 15 unit, Memori a 04-17 Route: l 15:00: SUB-Q, [place] Drug form: SOLN, Q12H, Dosing Weight 65, kg, Start date: 02/16/16 9:00:00 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, 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, Stop date: 03/16/16 21:00:00 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 Levemir 2015- No 15 unit, Memori a 1-23 Route: l 15:00: SUB-Q, [place] 00 Drug form: SOLN, Q12H, Dosing Weight 65, kg, Start date: 02/16/16 9:00:00 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, 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, Stop date: 03/16/16 21:00:00 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 Lopressor 2015-03 No Notes: [facility] a 1-23 (Same as: l 03:00: Lopressor) [place] 00 12.5mg=1/4 X 50 mg tab. Lopressor 2015-03 No Notes: Memori a 1-23 (Same as: l 03:00: Lopressor) [place] 00 12.5mg=1/4 X 50 mg tab. Lopressor 2015-03 No Notes: Memori a 1-23 (Same as: l 03:00: Lopressor) [place] 00 12.5mg=1/4 X 50 mg tab. Lopressor 2015-03 No Notes: Memori a 1-23 (Same as: l 03:00: Lopressor) [place] 00 12.5mg=1/4 X 50 mg tab. Miralax 2015-03 No Notes: [facility] 1-22 Dissolve l 20:00: in 8 oz of [place] 00 water or juice. (Same as: Miralax) Miralax 2015-03 No Notes: [facility] 1-22 Dissolve l 20:00: in 8 oz of [place] 00 water or juice. (Same as: Miralax) Miralax 2015-03 No Notes: [facility] 1-22 Dissolve l 20:00: in 8 oz of [place] 00 water or juice. (Same as: Miralax) Miralax 2015-03 No Notes: [facility] 1-22 Dissolve l 20:00: in 8 oz of [place] 00 water or juice. (Same as: Miralax) Ancef 2015-03 No 2 gm, [facility] 1-22 Route: l 17:30: IVPB, [place] 00 ONCE, Dosing Weight 65, kg, Start date: 02/15/16 11:30:00 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, Duration: 1 doses or times, Stop date: 02/15/16 11:30:00 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, Surgical Prophylaxi s Only; For patients < 120 kg Ancef 2015-03 No 2 gm, [facility] 04-16 Route: l 17:30: IVPB, [place] 00 ONCE, Dosing Weight 65, kg, Start date: 02/15/16 11:30:00 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, Duration: 1 doses or times, Stop date: 02/15/16 11:30:00 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, Surgical Prophylaxi s Only; For patients < 120 kg Ancef 2015-03 No 2 gm, [facility] 04-16 Route: l 17:30: IVPB, [place] 00 ONCE, Dosing Weight 65, kg, Start date: 02/15/16 11:30:00 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, Duration: 1 doses or times, Stop date: 02/15/16 11:30:00 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, Surgical Prophylaxi s Only; For patients < 120 kg Ancef 2015-03 No 2 gm, [facility] 04-16 Route: l 17:30: IVPB, [place] 00 ONCE, Dosing Weight 65, kg, Start date: 02/15/16 11:30:00 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, Duration: 1 doses or times, Stop date: 02/15/16 11:30:00 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, Surgical Prophylaxi s Only; For patients < 120 kg tramadol 2015-03 No Notes: Not Mem oria hydrochlori 04-16 to exceed l de 50 MG 14:43: 400mg/day. Her escobedo Oral Tablet 00 (Same As: Ultram) tramadol 2015-03 No Notes: Not Mem oria hydrochlori 04-16 to exceed l de 50 MG 14:43: 400mg/day. Her escobedo Oral Tablet 00 (Same As: Ultram) tramadol 2015-03 No Notes: Not Mem oria hydrochlori 04-16 to exceed l de 50 MG 14:43: 400mg/day. Her escobedo Oral Tablet 00 (Same As: Ultram) tramadol 2015-03 No Notes: Not Mem oria hydrochlori 04-16 to exceed l de 50 MG 14:43: 400mg/day. Her escobedo Oral Tablet 00 (Same As: Ultram) Phenytoin 2015-03 No Notes: Memori a 04-16 (Same as: l 06:00: Dilantin) [place] 00 Do not infuse greater than 50 mg/min. MEDICATION WASTE Product Size: 100 mg Product Wasted: ___ mg Phenytoin 2015-03 No Notes: Memori a 04-16 (Same as: l 06:00: Dilantin) [place] 00 Do not infuse greater than 50 mg/min. MEDICATION WASTE Product Size: 100 mg Product Wasted: ___ mg Phenytoin 2015-03 No Notes: Memori a 04-16 (Same as: l 06:00: Dilantin) [place] 00 Do not infuse greater than 50 mg/min. MEDICATION WASTE Product Size: 100 mg Product Wasted: ___ mg Phenytoin 2015-03 No Notes: Memori a 04-16 (Same as: l 06:00: Dilantin) [place] 00 Do not infuse greater than 50 mg/min. MEDICATION WASTE Product Size: 100 mg Product Wasted: ___ mg Levemir 2015-03 No Notes: [facility]oria 04-16 Same as l 03:00: Levemir Do [place] 00 not hold insulin without contacting prescriber WASTE: F/P - Black; E - [facility] Trash [facility] "single patient use only" Levemir 2015-03 No Notes: [facility] 04-16 Same as l 03:00: Levemir Do [place] 00 not hold insulin without contacting prescriber WASTE: F/P - Black; E - [facility] Trash [facility] "single patient use only" Levemir 2015-03 No Notes: [facility] 04-16 Same as l 03:00: Levemir Do [place] 00 not hold insulin without contacting prescriber WASTE: F/P - Black; E - [facility] Trash [facility] "single patient use only" Levemir 2015-03 No Notes: [facility] 04-16 Same as l 03:00: Levemir Do [place] 00 not hold insulin without contacting prescriber WASTE: F/P - Black; E - [facility] Trash [facility] "single patient use only" Beneprotein 2015-03 No Notes: Jamie jp 7 gm pkt - (Same as: l 22:30: Beneprotei [place] 00 n) Beneprotein 2015-03 No Notes: Jamie jp 7 gm pkt - (Same as: l 22:30: Beneprotei [place] 00 n) Beneprotein 2015-03 No Notes: Jamie jp 7 gm pkt 1- (Same as: l 22:30: Beneprotei [place] 00 n) Beneprotein 2015-03 No Notes: Jamie jp 7 gm pkt 04-15 (Same as: l 22:30: Beneprotei [place] 00 n) tramadol 2015-03 No Notes: Not Mem oria hydrochlori 04-15 to exceed l de 50 MG 21:03: 400mg/day. Her escobedo Oral Tablet 00 (Same As: Ultram) tramadol 2015-03 No Notes: Not Mem oria hydrochlori 04-15 to exceed l de 50 MG 21:03: 400mg/day. Her escobedo Oral Tablet 00 (Same As: Ultram) tramadol 2015-03 No Notes: Not Mem oria hydrochlori 04-15 to exceed l de 50 MG 21:03: 400mg/day. Her escobedo Oral Tablet 00 (Same As: Ultram) tramadol 2015-03 No Notes: Not Mem oria hydrochlori 04-15 to exceed l de 50 MG 21:03: 400mg/day. Her escobedo Oral Tablet 00 (Same As: Ultram) Lipitor 2015-03 No Notes: [facility]oria - Same as l 15:00: Lipitor [place] 00 Lipitor 2015-03 No Notes: [facility] 04-15 Same as l 15:00: Lipitor [place] 00 Lipitor 2015-03 No Notes: [facility] 04-15 Same as l 15:00: Lipitor [place] 00 Lipitor 2015-03 No Notes: [facility] 04-15 Same as l 15:00: Lipitor [place] 00 iodixanol 2015-03 No 100 mL, Memor ia 04-15 Route: l 13:57: IVP, Drug [place] 00 Form: SOLN, Dosing Weight 65, kg, ONCALL, STAT, Start date: 02/14/16 7:57:00 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, Duration: 1 doses or times, Dose = 2.2ml/kg, Max dose = 100ml -- "To be infused by Radiology Staff ONLY" iodixanol 2015-03 No 100 mL, Memor ia 04-15 Route: l 13:57: IVP, Drug [place] 00 Form: SOLN, Dosing Weight 65, kg, ONCALL, STAT, Start date: 02/14/16 7:57:00 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, Duration: 1 doses or times, Dose = 2.2ml/kg, Max dose = 100ml -- "To be infused by Radiology Staff ONLY" iodixanol 2015-03 No 100 mL, Memor ia 04-15 Route: l 13:57: IVP, Drug [place] 00 Form: SOLN, Dosing Weight 65, kg, ONCALL, STAT, Start date: 02/14/16 7:57:00 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, Duration: 1 doses or times, Dose = 2.2ml/kg, Max dose = 100ml -- "To be infused by Radiology Staff ONLY" iodixanol 2015-03 No 100 mL, Memor ia 04-15 Route: l 13:57: IVP, Drug [place] Form: SOLN, Dosing Weight 65, kg, ONCALL, STAT, Start date: 02/14/16 7:57:00 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, Duration: 1 doses or times, Dose = 2.2ml/kg, Max dose = 100ml -- "To be infused by Radiology Staff ONLY" Flomax 2015-03 No Notes: [facility] 1-20 (Same As: l 23:00: Flomax) [place] 00 "Do Not Crush" Flomax 2015-03 No Notes: [facility] 1-20 (Same As: l 23:00: Flomax) [place] 00 "Do Not Crush" Flomax 2015-03 No Notes: [facility] 1-20 (Same As: l 23:00: Flomax) [place] 00 "Do Not Crush" Flomax 2015-03 No Notes: [facility] 1-20 (Same As: l 23:00: Flomax) [place] 00 "Do Not Crush" Insulin 2015-03 No 60 units) Jamie jp regular - WASTE: F/P l 19:00: - Black; E [place] - [facility] Trash [facility] Stable for 28 days at room temperatur e Expires in days from ____Date Insulin 2015-03 No 60 units) Jamie jp regular - WASTE: F/P l 19:00: - Black; E [place] - [facility] Trash [facility] Stable for 28 days at room temperatur e Expires in days from ____Date Insulin 2015-03 No 60 units) Jamie jp regular 1-20 WASTE: F/P l 19:00: - Black; E [place] - [facility] Trash [facility] Stable for 28 days at room temperatur e Expires in days from ____Date Insulin 2015-03 No 60 units) Jamie jp regular 1-20 WASTE: F/P l 19:00: - Black; E [place] - [facility] Trash [facility] Stable for 28 days at room temperatur e Expires in days from ____Date Levemir 2015-03 No Notes: [facility] 1-20 Same as l 15:00: Le[place]mir Do [place] 00 not hold insulin without contacting prescriber WASTE: F/P - Black; E - [facility] Trash [facility] "single patient use only" Lopressor 2015-03 No Notes: Memori a 1-20 (Same as: l 15:00: Lopressor) [place] 00 12.5mg=1/4 X 50 mg tab. Propranolol 2015-03 No 10 mg, Jamie jp 1-20 Route: PO, l 15:00: Drug form: [place] 00 TAB, Q12H, Dosing Weight 65, kg, Start date: 02/13/16 9:00:00 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, 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, Stop date: 03/13/16 21:00:00 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 Levemir 2015-03 No Notes: [facility] 1-20 Same as l 15:00: Levemir Do [place] 00 not hold insulin without contacting prescriber WASTE: F/P - Black; E - [facility] Trash [facility] "single patient use only" Lopressor 2015-03 No Notes: Memori a 1-20 (Same as: l 15:00: Lopressor) [place] 00 12.5mg=1/4 X 50 mg tab. Propranolol 2015-03 No 10 mg, Jamie jp 1-20 Route: PO, l 15:00: Drug form: [place] 00 TAB, Q12H, Dosing Weight 65, kg, Start date: 02/13/16 9:00:00 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, 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, Stop date: 03/13/16 21:00:00 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 Levemir 2015-03 No Notes: [facility] 1-20 Same as l 15:00: Levemir Do [place] 00 not hold insulin without contacting prescriber WASTE: F/P - Black; E - [facility] Trash [facility] "single patient use only" Lopressor 2015-03 No Notes: Memori a 1-20 (Same as: l 15:00: Lopressor) [place] 00 12.5mg=1/4 X 50 mg tab. Propranolol 2015-03 No 10 mg, Jamie jp 1-20 Route: PO, l 15:00: Drug form: [place] 00 TAB, Q12H, Dosing Weight 65, kg, Start date: 02/13/16 9:00:00 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, 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, Stop date: 03/13/16 21:00:00 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 Levemir 2015-03 No Notes: [facility] 1-20 Same as l 15:00: Levemir Do [place] 00 not hold insulin without contacting prescriber WASTE: F/P - Black; E - [facility] Trash [facility] "single patient use only" Lopressor 2015-03 No Notes: Memori a 1-20 (Same as: l 15:00: Lopressor) [place] 00 12.5mg=1/4 X 50 mg tab. Propranolol 2015-03 No 10 mg, Jamie jp 1-20 Route: PO, l 15:00: Drug form: [place] 00 TAB, Q12H, Dosing Weight 65, kg, Start date: 02/13/16 9:00:00 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, 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, Stop date: 03/13/16 21:00:00 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 metoprolol 2015-03 No Notes: Memor ia tartrate 1-20 (Same as: l 11:52: Lopressor) [place] 00 12.5mg=1/4 X 50 mg tab. metoprolol 2015-03 No Notes: Memor ia tartrate 1-20 (Same as: l 11:52: Lopressor) [place] 00 12.5mg=1/4 X 50 mg tab. metoprolol 2015-03 No Notes: Memor ia tartrate 1-20 (Same as: l 11:52: Lopressor) [place] 00 12.5mg=1/4 X 50 mg tab. metoprolol 2015-03 No Notes: Memor ia tartrate 1-20 (Same as: l 11:52: Lopressor) [place] 00 12.5mg=1/4 X 50 mg tab. Aspirin 2015-03 No 325 mg, Memoria 1-20 Route: PO, l 00:00: Drug form: [place] 00 TAB, Daily, Dosing Weight 65, kg, Start date: 02/12/16 18:00:00 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, 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, Stop date: 03/13/16 9:00:00 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 Aspirin 2015-03 No 325 mg, [facility] 1-20 Route: PO, l 00:00: Drug form: [place] 00 TAB, Daily, Dosing Weight 65, kg, Start date: 02/12/16 18:00:00 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, 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, Stop date: 03/13/16 9:00:00 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 Aspirin 2015-03 No 325 mg, [facility] 1-20 Route: PO, l 00:00: Drug form: [place] 00 TAB, Daily, Dosing Weight 65, kg, Start date: 02/12/16 18:00:00 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, 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, Stop date: 03/13/16 9:00:00 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 Aspirin 2015-03 No 325 mg, [facility] 1-20 Route: PO, l 00:00: Drug form: [place] 00 TAB, Daily, Dosing Weight 65, kg, Start date: 02/12/16 18:00:00 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, 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, Stop date: 03/13/16 9:00:00 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 Phenytoin 2015-03 No Notes: Memori a 1-19 (Same as: l 23:00: Dilantin) [place] 00 Rinse packet/syr [place] with water "Caution of interactio n with continuous NG feedings: Withhold administra tion of nutritiona l supplement s for 1-2 hours before and after phenytoin dose". Phenytoin 2015-03 No Notes: Memori a 1-19 (Same as: l 23:00: Dilantin) [place] 00 Rinse packet/syr [place] with water "Caution of interactio n with continuous NG feedings: Withhold administra tion of nutritiona l supplement s for 1-2 hours before and after phenytoin dose". Phenytoin 2015-03 No Notes: Memori a 1-19 (Same as: l 23:00: Dilantin) [place] 00 Rinse packet/syr [place] with water "Caution of interactio n with continuous NG feedings: Withhold administra tion of nutritiona l supplement s for 1-2 hours before and after phenytoin dose". Phenytoin 2015-03 No Notes: Memori a 1-19 (Same as: l 23:00: Dilantin) [place] 00 Rinse packet/syr [place] with water "Caution of interactio n with continuous NG feedings: Withhold administra tion of nutritiona l supplement s for 1-2 hours before and after phenytoin dose". Oxycodone 2015-03 No Notes: Memori a Hydrochlori 1-19 (Same as: l de 5 MG 19:50: Roxicodone Herm erwin Oral Tablet 00 ) Oxycodone 2015-03 No Notes: Memori a Hydrochlori 1-19 (Same as: l de 5 MG 19:50: Roxicodone Herm erwin Oral Tablet 00 ) Oxycodone 2015-03 No Notes: Memori a Hydrochlori 1-19 (Same as: l de 5 MG 19:50: Roxicodone Herm erwin Oral Tablet 00 ) Oxycodone 2015-03 No Notes: Memori a Hydrochlori 1-19 (Same as: l de 5 MG 19:50: Roxicodone Herm erwin Oral Tablet 00 ) Bisacodyl 2015-03 No Notes: Memori a 1-19 (Same As: l 17:28: Dulcolax, [place] 00 Bisco-Lax) Bisacodyl 2015-03 No Notes: Memori a 1-19 (Same As: l 17:28: Dulcolax, [place] 00 Bisco-Lax) Bisacodyl 2015-03 No Notes: Memori a 1-19 (Same As: l 17:28: Dulcolax, [place] 00 Bisco-Lax) Bisacodyl 2015-03 No Notes: Memori a 1-19 (Same As: l 17:28: Dulcolax, [place] 00 Bisco-Lax) Lipitor 2015-03 No Notes: [facility]oria 1-19 (Same as: l 15:00: Lipitor) [place] 00 Levemir 2015-03 No Notes: Memoria 1-19 Same as l 15:00: Levemir Do not hold insulin without contacting prescriber WASTE: F/P - Black; E - Municipal Trash Bin "single patient use only" Lipitor 2015-03 No Notes: Memoria 1-19 (Same as: l 15:00: Lipitor) [place] 00 Levemir 2015-03 No Notes: Memoria 1-19 Same as l 15:00: Levemir Do [place] 00 not hold insulin without contacting prescriber WASTE: F/P - Black; E - [facility] Trash Bin "single patient use only" Lipitor 2015-03 No Notes: Memoria 1-19 (Same as: l 15:00: Lipitor) [place] 00 Levemir 2015-03 No Notes: Memoria 1-19 Same as l 15:00: Levemir Do [place] 00 not hold insulin without contacting prescriber WASTE: F/P - Black; E - Municipal Trash Bin "single patient use only" Lipitor 2015-03 No Notes: Memoria 1-19 (Same as: l 15:00: Lipitor) [place] 00 Levemir 2015-03 No Notes: Memoria 1-19 Same as l 15:00: Levemir Do [place] 00 not hold insulin without contacting prescriber WASTE: F/P - Black; E - Municipal Trash Bin "single patient use only" Dulcolax 2015-03 No Notes: Memoria Laxative 1-19 (Same As: l 14:55: Dulcolax, [place] 00 Bisco-Lax) Dulcolax 2015-03 No Notes: [facility] Laxative 1-19 (Same As: l 14:55: Dulcolax, [place] 00 Bisco-Lax) Dulcolax 2015-03 No Notes: [facility]oria Laxative 1-19 (Same As: l 14:55: Dulcolax, [place] 00 Bisco-Lax) Dulcolax 2015-03 No Notes: [facility] Laxative 1-19 (Same As: l 14:55: Dulcolax, [place] 00 Bisco-Lax) Oxycodone 2015-03 No Notes: Memori a Hydrochlori 1-19 (Same as: l de 5 MG 12:14: Roxicodone Herm erwin Oral Tablet 00 ) Oxycodone 2015-03 No Notes: Memori a Hydrochlori 1-19 (Same as: l de 5 MG 12:14: Roxicodone Herm erwin Oral Tablet 00 ) Oxycodone 2015-03 No Notes: Memori a Hydrochlori 1-19 (Same as: l de 5 MG 12:14: Roxicodone Herm erwin Oral Tablet 00 ) Oxycodone 2015-03 No Notes: Memori a Hydrochlori 1-19 (Same as: l de 5 MG 12:14: Roxicodone Herm erwin Oral Tablet 00 ) Aspirin 325 2015-03 No Notes: Jamie jp MG Oral 1-19 Take with l Tablet 00:00: food. Lovenox 2015-03 No Notes: Memoria 1-19 (Same as: l 00:00: Lovenox) Aspirin 325 2015-03 No Notes: Jamie jp MG Oral 1-19 Take with l Tablet 00:00: food. Lovenox 2015-03 No Notes: Memoria 1-19 (Same as: l 00:00: Lovenox) Aspirin 325 2015-03 No Notes: Jamie jp MG Oral 1-19 Take with l Tablet 00:00: food. Lovenox 2015-03 No Notes: Memoria 1-19 (Same as: l 00:00: Lovenox) Aspirin 325 2015-03 No Notes: Jamie jp MG Oral 1-19 Take with l Tablet 00:00: food. Lovenox 2015-03 No Notes: Memoria 1-19 (Same as: l 00:00: Lovenox) glimepiride 2015-03 No Notes: Jamie jp 1-18 (Same as: l 23:00: Amaryl) glimepiride 2015-03 No Notes: Jamie jp 1-18 (Same as: l 23:00: Amaryl) glimepiride 2015-03 No Notes: Jamie jp 1-18 (Same as: l 23:00: Amaryl) glimepiride 2015-03 No Notes: Jamie jp 1-18 (Same as: l 23:00: Amaryl) Lisinopril 2015-03 No Notes: Memor ia 1-18 (Same as: l 22:00: Prinivil, Zestril) Amlodipine 2015-03 No Notes: Memor ia 1-18 (Same as: l 22:00: Norvasc) Lisinopril 2015-03 No Notes: Memor ia 1-18 (Same as: l 22:00: Prinivil, [place] 00 Zestril) Amlodipine 2015-03 No Notes: Memor ia 1-18 (Same as: l 22:00: Norvasc) Lisinopril 2015-03 No Notes: Memor ia 1-18 (Same as: l 22:00: Prinivil, [place] 00 Zestril) Amlodipine 2015-03 No Notes: Memor ia 1-18 (Same as: l 22:00: Norvasc) Lisinopril 2015-03 No Notes: Memor ia 1-18 (Same as: l 22:00: Prinivil, [place] 00 Zestril) Amlodipine 2015-03 No Notes: Memor ia 1-18 (Same as: l 22:00: Norvasc) docusate 2015-03 No Notes: Memoria sodium 1-18 (Same as: l 15:12: Colace) docusate 2015-03 No Notes: Memoria sodium 1-18 (Same as: l 15:12: Colace) docusate 2015-03 No Notes: Memoria sodium 1-18 (Same as: l 15:12: Colace) docusate 2015-03 No Notes: Memoria sodium 1-18 (Same as: l 15:12: Colace) influenza 2015-03 No Notes: Memori a virus 1-18 (Same as: l vaccine, 15:00: Fluzone Buzz n inactivated 00 Quadrivale nt, Fluarix Quadrivale nt) For 3 years of age and older (0.5 mL IM) Shake well before use sennosides, 2015-03 No Notes: Jamie jp [facility] 1-18 (Same as: l 15:00: Senokot) Docusate 2015-03 No Notes: Memoria 1-18 (Same as: l 15:00: Colace) (Do Not Crush) pneumococca 2015-03 No Notes: Jamie jp l capsular 1-18 (Same as: l polysacchar 15:00: Pneumovax H ermann sandoval type 1 00 23) vaccine / Refrigerat pneumococca e l capsular polysacchar sandoval type 10A vaccine / pneumococca l capsular polysacchar sandoval type 11A vaccine / pneumococca l capsular polysacchar sandoval type 12F vaccine / pneumococca l capsular polysacchar influenza 2015-03 No Notes: Memori a virus 1-18 (Same as: l vaccine, 15:00: Fluzone Buzz n inactivated 00 Quadrivale nt, Fluarix Quadrivale nt) For 3 years of age and older (0.5 mL IM) [facility] No Notes: Jamie jp [facility] 1-18 (Same as: l 15:00: Senokot) [place] Docusate 2015-03 No Notes: Memoria 1-18 (Same as: l 15:00: Colace) [place] (Do Not Crush) pneumococca 2015-03 No Notes: Jamie jp l capsular 1-18 (Same as: l polysacchar 15:00: Pneumovax H ermann sandoval type 1 00 23) vaccine / Refrigerat pneumococca e l capsular polysacchar sandoval type 10A vaccine / pneumococca l capsular polysacchar sandoval type 11A vaccine / pneumococca l capsular polysacchar sandoval type 12F vaccine / pneumococca l capsular polysacchar influenza 2015-03 No Notes: Memori a virus 1-18 (Same as: l vaccine, 15:00: Fluzone Buzz n inactivated 00 Quadrivale nt, Fluarix Quadrivale nt) For 3 years of age and older (0.5 mL IM) Shake well before use [facility], 2015-03 No Notes: Jamie jp [facility] 1-18 (Same as: l 15:00: Senokot) [place] Docusate 2015-03 No Notes: Memoria 1-18 (Same as: l 15:00: Colace) [place] 00 (Do Not Crush) pneumococca 2015-03 No Notes: Jamie jp l capsular 1-18 (Same as: l polysacchar 15:00: Pneumovax H ermann sandoval type 1 00 23) vaccine / Refrigerat pneumococca e l capsular polysacchar sandoval type 10A vaccine / pneumococca l capsular polysacchar sandoval type 11A vaccine / pneumococca l capsular polysacchar sandoval type 12F vaccine / pneumococca l capsular polysacchar influenza 2015-03 No Notes: Memori a virus 1-18 (Same as: l vaccine, 15:00: Fluzone Buzz n inactivated 00 Quadrivale nt, Fluarix Quadrivale nt) For 3 years of age and older (0.5 mL IM) Shake well before use sennosides, 2015-03 No Notes: Jamie jp [facility] 1-18 (Same as: l 15:00: Senokot) Docusate 2015-03 No Notes: Memoria 1-18 (Same as: l 15:00: Colace) [place] (Do Not Crush) pneumococca 2015-03 No Notes: Jamie jp l capsular 1-18 (Same as: l polysacchar 15:00: Pneumovax H ermann sandoval type 1 00 23) vaccine / Refrigerat pneumococca e l capsular polysacchar sandoval type 10A vaccine / pneumococca l capsular polysacchar sandoval type 11A vaccine / pneumococca l capsular polysacchar sandoval type 12F vaccine / pneumococca l capsular polysacchar gabapentin 2015-03 No Notes: Memor ia 300 MG Oral 1-18 (Same as: l Capsule 14:00: Neurontin) Herm erwin gabapentin 2015-03 No Notes: Memor ia 300 MG Oral 1-18 (Same as: l Capsule 14:00: Neurontin) Herm erwin gabapentin 2015-03 No Notes: Memor ia 300 MG Oral 1-18 (Same as: l Capsule 14:00: Neurontin) Herm erwin gabapentin 2015-03 No Notes: Memor ia 300 MG Oral 1-18 (Same as: l Capsule 14:00: Neurontin) Herm erwin Tylenol 2015-03 No 1,000 mg, Memor ia 1-18 31.23 mL, l 12:00: Route: PO, Drug form: LIQ, Q6H, Dosing Weight 65, kg, Start date: 02/11/16 6:00:00 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, Stop date: 03/12/16 0:00:00 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 tramadol 2015-03 No Notes: Not Mem oria hydrochlori -18 to exceed l de 50 MG 12:00: 400mg/day. Her escobedo Oral Tablet 00 (Same As: Ultram) Tylenol 2015-03 No 1,000 mg, Memor ia 1-18 31.23 mL, l 12:00: Route: PO, Drug form: LIQ, Q6H, Dosing Weight 65, kg, Start date: 02/11/16 6:00:00 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, Stop date: 03/12/16 0:00:00 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 tramadol 2015-03 No Notes: Not Mem oria hydrochlori 1-18 to exceed l de 50 MG 12:00: 400mg/day. Her escobedo Oral Tablet 00 (Same As: Ultram) Tylenol 2015-03 No 1,000 mg, Memor ia 1-18 31.23 mL, l 12:00: Route: PO, [place] 00 Drug form: LIQ, Q6H, Dosing Weight 65, kg, Start date: 02/11/16 6:00:00 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, Stop date: 03/12/16 0:00:00 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 tramadol 2015-03 No Notes: Not Mem oria hydrochlori 1-18 to exceed l de 50 MG 12:00: 400mg/day. Her escobedo Oral Tablet 00 (Same As: Ultram) Tylenol 2015-03 No 1,000 mg, Memor ia 1-18 31.23 mL, l 12:00: Route: PO, [place] 00 Drug form: LIQ, Q6H, Dosing Weight 65, kg, Start date: 02/11/16 6:00:00 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, Stop date: 03/12/16 0:00:00 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 tramadol 2015-03 No Notes: Not Mem oria hydrochlori 1-18 to exceed l de 50 MG 12:00: 400mg/day. Her escobedo Oral Tablet 00 (Same As: Ultram) Fentanyl 2015-03 No 1,000 Memoria 1-18 microgram, l 10:22: 20 mL, [place] 00 Rate: Titrate, Start Dose: 50 microgram/ hr, Titration: 25 microgram/ hour every 15 minutes, Goal(s): RASS 0, Max Dose: 300 microgram/ hr, Route: IV, Dosing Weight 65 kg, Total Volume: 20, Start date: 02/11/16 4:22:00 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, Ritika... Fentanyl 2015-03 No 1,000 Memoria 1-18 microgram, l 10:22: 20 mL, [place] 00 Rate: Titrate, Start Dose: 50 microgram/ hr, Titration: 25 microgram/ hour every 15 minutes, Goal(s): RASS 0, Max Dose: 300 microgram/ hr, Route: IV, Dosing Weight 65 kg, Total Volume: 20, Start date: 02/11/16 4:22:00 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, Duratio... Fentanyl 2015-03 No 1,000 Memoria 1-18 microgram, l 10:22: 20 mL, [place] 00 Rate: Titrate, Start Dose: 50 microgram/ hr, Titration: 25 microgram/ hour every 15 minutes, Goal(s): RASS 0, Max Dose: 300 microgram/ hr, Route: IV, Dosing Weight 65 kg, Total Volume: 20, Start date: 02/11/16 4:22:00 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, Duratio... Fentanyl 2015-03 No 1,000 Memoria 1-18 microgram, l 10:22: 20 mL, [place] 00 Rate: Titrate, Start Dose: 50 microgram/ hr, Titration: 25 microgram/ hour every 15 minutes, Goal(s): RASS 0, Max Dose: 300 microgram/ hr, Route: IV, Dosing Weight 65 kg, Total Volume: 20, Start date: 02/11/16 4:22:00 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, Duratio... Lovenox 2015-03 No Notes: Memoria 1-18 (Same as: l 10:00: Lovenox) [place] Lovenox 2015-03 No Notes: Memoria 1-18 (Same as: l 10:00: Lovenox) [place] Lovenox 2015-03 No Notes: Memoria 1-18 (Same as: l 10:00: Lovenox) [place] Lovenox 2015-03 No Notes: Memoria 1-18 (Same as: l 10:00: Lovenox) [place] Enoxaparin 2015-03 No Notes: Memor ia 1-18 (Same as: l 09:00: Lovenox) [place] Enoxaparin 2015-03 No Notes: Memor ia 1-18 (Same as: l 09:00: Lovenox) [place] Enoxaparin 2015-03 No Notes: Memor ia 1-18 (Same as: l 09:00: Lovenox) [place] Enoxaparin 2015-03 No Notes: Memor ia 1-18 (Same as: l 09:00: Lovenox) [place] 00 albumin 2015-03 No Notes: Memoria human 5% 18 LOT#: l intravenous 08:56: [place] solution 00 ___Mfg:___ ___ (Same as: Albuminar) "blood product derivative " WASTE: F/P - Red; E -Red MEDICATION WASTE Product Size: 25 gm Product Wasted: ___ gm albumin 2015-03 No Notes: Petra human 5% 04-12 LOT#: l intravenous 08:56: [place] solution 00 ___Mfg:___ ___ (Same as: Albuminar) "blood product derivative " WASTE: F/P - Red; E -Red MEDICATION WASTE Product Size: 25 gm Product Wasted: ___ gm albumin 2015-03 No Notes: Petra boyer 5% 04-12 LOT#: l intravenous 08:56: [place] solution 00 ___Mfg:___ ___ (Same as: Albuminar) "blood product derivative " WASTE: F/P - Red; E -Red MEDICATION WASTE Product Size: 25 gm Product Wasted: ___ gm albumin 2015-03 No Notes: Petra boyer 5% 04-12 LOT#: l intravenous 08:56: [place] solution 00 ___Mfg:___ ___ (Same as: Albuminar) "blood product derivative " WASTE: F/P - Red; E -Red MEDICATION WASTE Product Size: 25 gm Product Wasted: ___ gm Oxycodone 2015-03 No Notes: Memori a Hydrochlori -18 (Same as: l de 5 MG 08:17: Roxicodone Herm erwin Oral Tablet 00 ) Oxycodone 2015-03 No Notes: Memori a Hydrochlori -18 (Same as: l de 5 MG 08:17: Roxicodone Herm erwin Oral Tablet 00 ) Oxycodone 2015-03 No Notes: Memori a Hydrochlori -18 (Same as: l de 5 MG 08:17: Roxicodone Herm erwin Oral Tablet 00 ) Oxycodone 2015-03 No Notes: Memori a Hydrochlori 1-18 (Same as: l de 5 MG 08:17: Roxicodone Herm erwin Oral Tablet ) Midazolam 2015-03 No Notes: Memori a 1-18 (Same as: l 06:46: Versed) [place] 00 Midazolam 2015-03 No Notes: Memori a 1-18 (Same as: l 06:46: Versed) [place] 00 Midazolam 2015-03 No Notes: Memori a 1-18 (Same as: l 06:46: Versed) [place] 00 Midazolam 2015-03 No Notes: Memori a 1-18 (Same as: l 06:46: Versed) [place] 00 Calcium 2015-03 No Notes: Memoria Gluconate 1-18 WASTE: F/P l 06:04: - Sink; E [place] - [facility] Tr[facility] Calcium 2015-03 No Notes: Memoria Gluconate 1-18 WASTE: F/P l 06:04: - Sink; E [place] - [facility] Trash [facility] Calcium 2015-03 No Notes: Memoria Gluconate 1-18 WASTE: F/P l 06:04: - Sink; E [place] - [facility] Trash [facility] Calcium 2015-03 No Notes: Memoria Gluconate 1-18 WASTE: F/P l 06:04: - Sink; E [place] - [facility] Trash Bin PHOS-NaK 2015-03 No Notes: Memoria 1-18 (Same as: l 06:00: Phos-NaK) [place] 00 Each 1.5 gm pkt has 250mg phosphorou s. Mix w/2.5oz water and stir. PHOS-NaK 2015-03 No Notes: Memoria 1-18 (Same as: l 06:00: Phos-NaK) [place] 00 Each 1.5 gm pkt has 250mg phosphorou s. Mix w/2.5oz water and stir. PHOS-NaK 2015-03 No Notes: Memoria 1-18 (Same as: l 06:00: Phos-NaK) [place] 00 Each 1.5 gm pkt has 250mg phosphorou s. Mix w/2.5oz water and stir. PHOS-NaK 2015-03 No Notes: Memoria 1-18 (Same as: l 06:00: Phos-NaK) [place] 00 Each 1.5 gm pkt has 250mg phosphorou s. Mix w/2.5oz water and stir. Pepcid 2015-03 No Notes: Memoria 1-18 (Same as: l 05:32: Pepcid) [place] 00 Can be dilute in 5-10cc NS IVP: Slow IV push over at least 2 minutes. Pepcid 2015-03 No Notes: Memoria 1-18 (Same as: l 05:32: Pepcid) [place] 00 Can be dilute in 5-10cc NS IVP: Slow IV push over at least 2 minutes. Pepcid 2015-03 No Notes: Memoria 1-18 (Same as: l 05:32: Pepcid) [place] 00 Can be dilute in 5-10cc NS IVP: Slow IV push over at least 2 minutes. Pepcid 2015-03 No Notes: Memoria 1-18 (Same as: l 05:32: Pepcid) [place] 00 Can be dilute in 5-10cc NS IVP: Slow IV push over at least 2 minutes. albumin 2015-03 No Notes: Petra human 5% 18 LOT#: l intravenous 04:04: [place] solution 00 ___Mfg:___ ___ (Same as: Albuminar) "blood product derivative " WASTE: F/P - Red; E -Red MEDICATION WASTE Product Size: 25 gm Product Wasted: ___ gm albumin 2015-03 No Notes: Petra human 5% 18 LOT#: l intravenous 04:04: [place] solution 00 ___Mfg:___ ___ (Same as: Albuminar) "blood product derivative " WASTE: F/P - Red; E -Red MEDICATION WASTE Product Size: 25 gm Product Wasted: ___ gm albumin 2015-03 No Notes: Petra human 5% 1-18 LOT#: l intravenous 04:04: [place] solution 00 ___Mfg:___ ___ (Same as: Albuminar) "blood product derivative " WASTE: F/P - Red; E -Red MEDICATION WASTE Product Size: 25 gm Product Wasted: ___ gm albumin 2015-03 No Notes: Memoria human 5% 04-12 LOT#: l intravenous 04:04: [place] solution 00 ___Mfg:___ ___ (Same as: Albuminar) "blood product derivative " WASTE: F/P - Red; E -Red MEDICATION WASTE Product Size: 25 gm Product Wasted: ___ gm Phenytoin 2015-03 No Notes: Memori a 18 (Same as: l 04:00: Dilantin) [place] 00 MEDICATION WASTE Product Size: 100 mg Product Wasted: _0__ mg Clindamycin 2015-03 No Notes: Jamie jp 04-12 (clindamyc l 04:00: in 150 [place] 00 mg/1 ml (600 mg/4 ml VL) INJ) (Same As: Cleocin) Phenytoin 2015-03 No Notes: Memori a 04-12 (Same as: l 04:00: Dilantin) [place] 00 MEDICATION WASTE Product Size: 100 mg Product Wasted: _0__ mg Clindamycin 2015-03 No Notes: Jamie jp 04-12 (clindamyc l 04:00: in 150 [place] 00 mg/1 ml (600 mg/4 ml VL) INJ) (Same As: Cleocin) Phenytoin 2015-03 No Notes: Memori a -18 (Same as: l 04:00: Dilantin) [place] 00 MEDICATION WASTE Product Size: 100 mg Product Wasted: _0__ mg Clindamycin 2015-03 No Notes: Jamie jp -18 (clindamyc l 04:00: in 150 [place] 00 mg/1 ml (600 mg/4 ml VL) INJ) (Same As: Cleocin) Phenytoin 2015-03 No Notes: Memori a -18 (Same as: l 04:00: Dilantin) [place] 00 MEDICATION WASTE Product Size: 100 mg Product Wasted: _0__ mg Clindamycin 2015-03 No Notes: Jamie jp -18 (clindamyc l 04:00: in 150 [place] 00 mg/1 ml (600 mg/4 ml VL) INJ) (Same As: Cleocin) Lovenox 2015-03 No Notes: Memoria 1-18 (Same as: l 02:00: Lovenox) [place] 00 Lovenox 2015-03 No Notes: Memoria 1-18 (Same as: l 02:00: Lovenox) [place] Lovenox 2015-03 No Notes: Memoria 1-18 (Same as: l 02:00: Lovenox) [place] Lovenox 2015-03 No Notes: Memoria 1-18 (Same as: l 02:00: Lovenox) [place] Isolyte S 2015-03 No 1,000 mL, Mem oria PH-7.4 04-12 Route: IV, l (Bolus) IV 00:55: Dosing Joann nn Weight 65, kg, ONCE, Start date: 02/10/16 18:55:00 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, Stop date: 02/10/16 18:55:00 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 Isolyte S 2015-03 No 1,000 mL, Mem oria PH-7.4 04-12 Route: IV, l (Bolus) IV 00:55: Dosing Joann nn 00 Weight 65, kg, ONCE, Start date: 02/10/16 18:55:00 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, Stop date: 02/10/16 18:55:00 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 Isolyte S 2015-03 No 1,000 mL, Mem oria PH-7.4 04-12 Route: IV, l (Bolus) IV 00:55: Dosing Joann nn 00 Weight 65, kg, ONCE, Start date: 02/10/16 18:55:00 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, Stop date: 02/10/16 18:55:00 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 Isolyte S 2015-03 No 1,000 mL, Mem oria PH-7.4 04-12 Route: IV, l (Bolus) IV 00:55: Dosing Joann nn 00 Weight 65, kg, ONCE, Start date: 02/10/16 18:55:00 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, Stop date: 02/10/16 18:55:00 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 Bacitracin 2015-03 No 1 appl, Jamie jp 18 Route: l 00:00: TOP, [place] 00 Daily, Drug form: OINT, Start date: 02/10/16 18:00:00 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, 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, Stop date: 04/10/16 9:00:00 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 Bacitracin 2015- No 1 appl, Jamie jp 1-18 Route: l 00:00: TOP, [place] 00 Daily, Drug form: OINT, Start date: 02/10/16 18:00:00 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, 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, Stop date: 04/10/16 9:00:00 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 Bacitracin 2015- No 1 appl, Jamie jp 1-18 Route: l 00:00: TOP, [place] 00 Daily, Drug form: OINT, Start date: 02/10/16 18:00:00 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, 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, Stop date: 04/10/16 9:00:00 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 Bacitracin 2015- No 1 appl, Jamie jp 1-18 Route: l 00:00: TOP, [place] 00 Daily, Drug form: OINT, Start date: 02/10/16 18:00:00 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, 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, Stop date: 04/10/16 9:00:00 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 Isolyte S 2015-03 No Notes: Memori a (PH 7.4) 04-11 (Same as: l 1000 mL 23:15: Isolyte S Joann nn 1,000 mL 00 PH 7.4) Isolyte S 2015-03 No Notes: Memori a (PH 7.4) 04-11 (Same as: l 1000 mL 23:15: Isolyte S Joann nn 1,000 mL 00 PH 7.4) Isolyte S 2015-03 No Notes: Memori a (PH 7.4) 04-11 (Same as: l 1000 mL 23:15: Isolyte S Joann nn 1,000 mL 00 PH 7.4) Isolyte S 2015-03 No Notes: Memori a (PH 7.4) 04-11 (Same as: l 1000 mL 23:15: Isolyte S Joann nn 1,000 mL 00 PH 7.4) Dextrose 2015-03 No 12.5 gm, Memor ia 50% Syringe 04-11 25 mL, l 22:42: Route: [place] 00 IVP, Drug Form: INJ, Dosing Weight 60, kg, PRN, PRN Abnormal Lab Result, Start date: 02/10/16 16:42:00 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, 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, Stop date: 03/11/16 16:41:00 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, For FSBG 40 mg/dL - 60 mg/dL Insulin 2015-03 No 60 units) Jamie jp regular 04-11 WASTE: F/P l 22:42: - Black; E [place] - [facility] Trash [facility] Stable for 28 days at room temperatur e Expires in days from ____Date Dextrose 2015-03 No 12.5 gm, Memor ia 50% Syringe 1-17 25 mL, l 22:42: Route: [place] 00 IVP, Drug Form: INJ, Dosing Weight 60, kg, PRN, PRN Abnormal Lab Result, Start date: 02/10/16 16:42:00 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, 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, Stop date: 03/11/16 16:41:00 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, For FSBG 40 mg/dL - 60 mg/dL Insulin 2015-03 No 60 units) Jamie jp regular 04-11 WASTE: F/P l 22:42: - Black; E [place] - [facility] Trash Bin Stable for 28 days at room temperatur e Expires in days from ____Date Dextrose 2015-03 No 12.5 gm, Memor ia 50% Syringe 1-17 25 mL, l 22:42: Route: [place] 00 IVP, Drug Form: INJ, Dosing Weight 60, kg, PRN, PRN Abnormal Lab Result, Start date: 02/10/16 16:42:00 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, 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, Stop date: 03/11/16 16:41:00 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, For FSBG 40 mg/dL - 60 mg/dL Insulin 2015-03 No 60 units) Jamie jp regular 04-11 WASTE: F/P l 22:42: - Black; E [place] - [facility] Trash [facility] Stable for 28 days at room temperatur e Expires in days from ____Date Dextrose 2015-03 No 12.5 gm, Memor ia 50% Syringe 1-17 25 mL, l 22:42: Route: [place] 00 IVP, Drug Form: INJ, Dosing Weight 60, kg, PRN, PRN Abnormal Lab Result, Start date: 02/10/16 16:42:00 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, 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, Stop date: 03/11/16 16:41:00 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, For FSBG 40 mg/dL - 60 mg/dL Insulin 2015-03 No 60 units) Jamie jp regular 04-11 WASTE: F/P l 22:42: - Black; E [place] - [facility] Trash Bin Stable for 28 days at room temperatur e Expires in days from ____Date fosphenytoi 2015-03 No 900 mg, Mem oria n 04-11 Route: IV, l 20:11: Drug form: [place] 00 INJ, ONCE, Dosing Weight 60, kg, Priority: STAT, Start date: 02/10/16 14:11:00 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, Stop date: 02/10/16 14:11:00 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, loading dose; Pediatric Dosing fosphenytoi 2015-03 No 900 mg, Mem oria n 04-11 Route: IV, l 20:11: Drug form: [place] 00 INJ, ONCE, Dosing Weight 60, kg, Priority: STAT, Start date: 02/10/16 14:11:00 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, Stop date: 02/10/16 14:11:00 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, loading dose; Pediatric Dosing fosphenytoi 2015-03 No 900 mg, Mem oria n 04-11 Route: IV, l 20:11: Drug form: [place] 00 INJ, ONCE, Dosing Weight 60, kg, Priority: STAT, Start date: 02/10/16 14:11:00 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, Stop date: 02/10/16 14:11:00 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, loading dose; Pediatric Dosing fosphenytoi 2015-03 No 900 mg, Mem oria n 17 Route: IV, l 20:11: Drug form: [place] 00 INJ, ONCE, Dosing Weight 60, kg, Priority: STAT, Start date: 02/10/16 14:11:00 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, Stop date: 02/10/16 14:11:00 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, loading dose; Pediatric Dosing Fentanyl 2015-03 No 25 Memoria 1-17 microgram, l 19:32: Route: [place] 00 IVP, ONCE, Dosing Weight 60, kg, Priority: STAT, Start date: 02/10/16 13:32:00 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, Stop date: 02/10/16 13:32:00 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 Fentanyl 2015-03 No 25 Memoria 1-17 microgram, l 19:32: Route: [place] 00 IVP, ONCE, Dosing Weight 60, kg, Priority: STAT, Start date: 02/10/16 13:32:00 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, Stop date: 02/10/16 13:32:00 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 Fentanyl 2015-03 No 25 Memoria 1-17 microgram, l 19:32: Route: [place] 00 IVP, ONCE, Dosing Weight 60, kg, Priority: STAT, Start date: 02/10/16 13:32:00 METAL BED ASSEMBLER, Stop date: 02/10/16 13:32:00 METAL BED ASSEMBLER Fentanyl 2015-03 No 25 Memoria 1-17 microgram, l 19:32: Route: [place] 00 IVP, ONCE, Dosing Weight 60, kg, Priority: STAT, Start date: 02/10/16 13:32:00 METAL BED ASSEMBLER, Stop date: 02/10/16 13:32:00 METAL BED ASSEMBLER Fentanyl 2015-03 No Notes: Memoria 1-17 (Same as: l 19:02: Sublimaze) [place] 00 Preservati ve free. Fentanyl 2015-03 No Notes: Memoria 1-17 (Same as: l 19:02: Sublimaze) [place] 00 Preservati ve free. Fentanyl 2015-03 No Notes: Memoria 1-17 (Same as: l 19:02: Sublimaze) [place] 00 Preservati ve free. Fentanyl 2015-03 No Notes: Memoria 1-17 (Same as: l 19:02: Sublimaze) [place] 00 Preservati ve free. 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 Refriger ate ANTICONVUL JOMAR Do not confuse with celebrex. 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 Refriger ate ANTICONVUL JOMAR Do not confuse with celebrex. MEDICATION WASTE Product Size: 500 mg Product Wasted: ___ mg Clindamycin 2015-03 No Notes: Jamie jp 1-17 (Same As: l 19:01: Cleocin) Fentanyl 2015-03 No 50 Memoria 1-17 microgram, l 19:01: Route: [place] 00 IVP, ONCE, kg, Priority: STAT, Start date: 02/10/16 13:01:00 [employer], Stop date: 02/10/16 13:01:00 MET[employer] ASSEM[employer]ER fosphenytoi 2015-03 No Notes: Jamie jp n 117 (Same as: l 19:01: Cerebyx) Stated mg = mgPE. Refriger ate ANTICONVUL JOMAR Do not confuse with celebrex. MEDICATION WASTE Product Size: 500 mg Product Wasted: ___ mg Clindamycin 2015-03 No Notes: Jamie jp 1-17 (Same As: l 19:01: Cleocin) Fentanyl 2015-03 No 50 Memoria 1-17 microgram, l 19:01: Route: [place] 00 IVP, ONCE, kg, Priority: STAT, Start date: 02/10/16 13:01:00 [employer], Stop date: 02/10/16 13:01:00 MET[employer] ASSEM[employer]ER fosphenytoi 2015-03 No Notes: Jamei jp n 1-17 (Same as: l 19:01: Cerebyx) Stated mg = mgPE. Refriger ate ANTICONVUL JOMAR Do not confuse with celebrex. MEDICATION WASTE Product Size: 500 mg Product Wasted: ___ mg Clindamycin 2015-03 No Notes: Jamie jp 1-17 (Same As: l 19:01: Cleocin) Fentanyl 2015-03 No 50 Memoria 1-17 microgram, l 18:58: Route: [place] 00 IVP, ONCE, kg, Priority: STAT, Start date: 02/10/16 12:58:00 [employer], Stop date: 02/10/16 12:58:00 [employer] Fentanyl 2015-03 No 50 Memoria 1-17 microgram, l 18:58: Route: IVP, ONCE, kg, Priority: STAT, Start date: 02/10/16 12:58:00 [employer], Stop date: 02/10/16 12:58:00 [employer]ER Fentanyl 2015-03 No 50 Memoria 1-17 microgram, l 18:58: Route: IVP, ONCE, kg, Priority: STAT, Start date: 02/10/16 12:58:00 [employer], Stop date: 02/10/16 12:58:00 [employer] Fentanyl 2015-03 No 50 Memoria 1-17 microgram, l 18:58: Route: IVP, ONCE, kg, Priority: STAT, Start date: 02/10/16 12:58:00 [employer], Stop date: 02/10/16 12:58:00 [employer]ER Propofol 10 2015-03 No 1,000 mg, M emoria MG/ML 1-17 100 mL, l Injectable 18:57: Rate: Buzz n Suspension 00 Titrate, Start Dose: 5 microgram/ kg/min, Titration: 5 microgram/ kg/min every 15 min, Goal(s): RASS 1, Max Dose: 50 microgram/ kg/min, Route: IV, Dosing Weight 60 kg, Total Volume: 100, Start date: 02/10/16 12:57:00 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 . Calcium 2015-03 No 500 mL, Memoria Chloride 1-17 500 ml/hr, l 0.0014 18:57: Infuse [facility] MEQ/ML / 00 Over: 1 Potassium hr, Route: Chloride IV, ONCE, 0.004 Priority: MEQ/ML / STAT, kg, Sodium Start Chloride date: 0.103 02/10/16 MEQ/ML / 12:57:00 Sodium [employer] ASSEMBLER, Lactate Duration: 0.028 1 doses or MEQ/ML times, Injectable Stop date: Solution 02/10/16 12:57:00 MET[employer]SEM[employer]ER Propofol 2015-03 No 1,000 mg, M emoria MG/ML 1-17 100 mL, l Injectable 18:57: Rate: Buzz n Suspension 00 Titrate, Start Dose: 5 microgram/ kg/min, Titration: 5 microgram/ kg/min every 15 min, Goal(s): RASS 1, Max Dose: 50 microgram/ kg/min, Route: IV, Dosing Weight 60 kg, Total Volume: 100, Start date: 02/10/16 12:57:00 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 . Calcium 2015-03 No 500 mL, [facility] Chloride 1-17 500 ml/hr, l 0.0014 18:57: Infuse [place] MEQ/ML / 00 Over: 1 Potassium hr, Route: Chloride IV, ONCE, 0.004 Priority: MEQ/ML / STAT, kg, Sodium Start Chloride date: 0.103 02/10/16 MEQ/ML / 12:57:00 Sodium [employer] ASSEMBLER, Lactate Duration: 0.028 1 doses or MEQ/ML times, Injectable Stop date: Solution 02/10/16 12:57:00 MET[employer]SEM[employer]ER Propofol 2015-03 No 1,000 mg, M emoria MG/ML 117 100 mL, l Injectable 18:57: Rate: Buzz n Suspension 00 Titrate, Start Dose: 5 microgram/ kg/min, Titration: 5 microgram/ kg/min every 15 min, Goal(s): RASS 1, Max Dose: 50 microgram/ kg/min, Route: IV, Dosing Weight 60 kg, Total Volume: 100, Start date: 02/10/16 12:57:00 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 . Calcium 2015-03 No 500 mL, [facility] Chloride 1-17 500 ml/hr, l 0.0014 18:57: Infuse [facility] MEQ/ML / 00 Over: 1 Potassium hr, Route: Chloride IV, ONCE, 0.004 Priority: MEQ/ML / STAT, kg, Sodium Start Chloride date: 0.103 02/10/16 MEQ/ML / 12:57:00 Sodium [employer] ASSEMBLER, Lactate Duration: 0.028 1 doses or MEQ/ML times, Injectable Stop date: Solution 02/10/16 12:57:00 MET[employer]ED ASSEM[employer]ER Propofol 10 2015-03 No 1,000 mg, M emoria MG/ML - 100 mL, l Injectable 18:57: Rate: Ubzz n Suspension 00 Titrate, Start Dose: 5 microgram/ kg/min, Titration: 5 microgram/ kg/min every 15 min, Goal(s): RASS 1, Max Dose: 50 microgram/ kg/min, Route: IV, Dosing Weight 60 kg, Total Volume: 100, Start date: 02/10/16 12:57:00 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 . Calcium 2015-03 No 500 mL, [facility] Chloride - 500 ml/hr, l 0.0014 18:57: Infuse [place] MEQ/ML / 00 Over: 1 Potassium hr, Route: Chloride IV, ONCE, 0.004 Priority: MEQ/ML / STAT, kg, Sodium Start Chloride date: 0.103 02/10/16 MEQ/ML / 12:57:00 Sodium [employer] ASSEMBLER, Lactate Duration: 0.028 1 doses or MEQ/ML times, Injectable Stop date: Solution 02/10/16 12:57:00 METAL BED ASSEMBLER Isolyte S 2015-03 No Notes: Memori a (PH 7.4) - (Same as: l 500 mL 500 18:32: Isolyte S He rmann mL 00 PH7.4) Isolyte S 2015-03 No Notes: Memori a (PH 7.4) 04-11 (Same as: l 500 mL 500 18:32: Isolyte S He rmann mL 00 PH7.4) Isolyte S 2015-03 No Notes: Memori a (PH 7.4) 04-11 (Same as: l 500 mL 500 18:32: Isolyte S He r[place] mL 00 PH7.4) Isolyte S 2015-03 No Notes: Memori a (PH 7.4) -17 (Same as: l 500 mL 500 18:32: Isolyte S He rmann mL 00 PH7.4) Saline 2015-03 No Notes: [facility] Flush 0.9% -17 (Same as: l 18:22: BD [place] 00 Posiflush) Saline 2015-03 No Notes: [facility] Flush 0.9% 1-17 (Same as: l 18:22: BD [place] 00 Posiflush) Saline 2015-03 No Notes: [facility] Flush 0.9% 1-17 (Same as: l 18:22: BD [place] 00 Posiflush) Saline 2015-03 No Notes: [facility] Flush 0.9% 1-17 (Same as: l 18:22: BD [place] 00 Posiflush) Saline 2015-03 No Notes: [facility] Flush 0.9% 1-17 (Same as: l 18:21: BD [place] 00 Posiflush) Saline 2015-03 No Notes: [facility] Flush 0.9% 1-17 (Same as: l 18:21: BD [place] 00 Posiflush) Saline 2015-03 No Notes: [facility] Flush 0.9% 1-17 (Same as: l 18:21: BD [place] 00 Posiflush) Saline 2015-03 No Notes: [facility] Flush 0.9% 1-17 (Same as: l 18:21: BD [place] 00 Posiflush) iodixanol 2015-03 No 99 mL, Memori a 04-11 Route: l 18:13: IVP, Drug [place] 00 Form: SOLN, kg, ONCALL, STAT, Start date: 02/10/16 12:13:00 MET[employer] BED ASSEMBLER, Duration: 1 doses or times, Dose = 2.2ml/kg, Max dose = 150ml -- "To be infused by Radiology Staff ONLY" iodixanol 2015-03 No 99 mL, Memori a 04-11 Route: l 18:13: IVP, Drug [facility] 00 Form: SOLN, kg, ONCALL, STAT, Start date: 02/10/16 12:13:00 MET[employer]ED ASSEMBLER, Duration: 1 doses or times, Dose = 2.2ml/kg, Max dose = 150ml -- "To be infused by Radiology Staff ONLY" iodixanol 2015-03 No 99 mL, Memori a 04-11 Route: l 18:13: IVP, Drug [facility] 00 Form: SOLN, kg, ONCALL, STAT, Start date: 02/10/16 12:13:00 METAL BED ASSEMBLER, Duration: 1 doses or times, Dose = 2.2ml/kg, Max dose = 150ml -- "To be infused by Radiology Staff ONLY" iodixanol 2015-03 No 99 mL, Memori a 04-11 Route: l 18:13: IVP, Drug [facility] 00 Form: SOLN, kg, ONCALL, STAT, Start date: 02/10/16 12:13:00 METAL BED ASSEMBLER, Duration: 1 doses or times, Dose = 2.2ml/kg, Max dose = 150ml -- "To be infused by Radiology Staff ONLY" alendronate alendronate No alendronat [facility] 70 mg 70 mg e 70 mg Family tablet TAKE tablet TAKE tablet Practic ONE (1) ONE (1) TAKE ONE e TABLET(S) TABLET(S) (1) BY MOUTH BY MOUTH TABLET(S) ONCE A ONCE A BY MOUTH WEEK. WEEK. ONCE A WEEK. lisinopril lisinopril No lisinopril [facility] 20 20 20 Family mg-hydrochl mg-hydrochl mg-hydroch Practic orothiazide orothiazide lorothiazi e 25 mg 25 mg de 25 mg tablet TAKE tablet TAKE tablet ONE (1) ONE (1) TAKE ONE TABLET(S) TABLET(S) (1) BY MOUTH BY MOUTH TABLET(S) ONCE A DAY. ONCE A DAY. BY MOUTH ONCE A DAY. metformin metformin No metformin [facility] ER 500 mg ER 500 mg ER 500 mg Family tablet,exte tablet,exte tablet,ext Practic nded nded ended e release 24 release 24 release 24 hr TAKE ONE hr TAKE ONE hr TAKE (1) (1) ONE (1) TABLET(S) TABLET(S) TABLET(S) BY MOUTH BY MOUTH BY MOUTH ONCE A DAY. ONCE A DAY. ONCE A DAY. metoprolol metoprolol No metoprolol [facility] succinate succinate succinate Family ER 50 mg ER 50 mg ER 50 mg Pra ctic tablet,exte tablet,exte tablet,ext e nded nded ended release 24 release 24 release 24 hr TAKE ONE hr TAKE ONE hr TAKE (1) (1) ONE (1) TABLET(S) TABLET(S) TABLET(S) BY MOUTH BY MOUTH BY MOUTH EVERY DAY. EVERY DAY. EVERY DAY. rosuvastati rosuvastati No rosuvastat [facility] n 20 mg n 20 mg in 20 mg Famil y tablet TAKE tablet TAKE tablet Practic ONE (1) ONE (1) TAKE ONE e TABLET(S) TABLET(S) (1) BY MOUTH BY MOUTH TABLET(S) ONCE A DAY. ONCE A DAY. BY MOUTH ONCE A DAY. lisinopril lisinopril No lisinopril [facility] 20 20 20 Family mg-hydrochl mg-hydrochl mg-hydroch Practic orothiazide orothiazide lorothiazi e 25 mg 25 mg de 25 mg tablet TAKE tablet TAKE tablet ONE (1) ONE (1) TAKE ONE TABLET(S) TABLET(S) (1) BY MOUTH BY MOUTH TABLET(S) ONCE A DAY. ONCE A DAY. BY MOUTH ONCE A DAY. metformin metformin No metformin [facility] ER 500 mg ER 500 mg ER 500 mg Family tablet,exte tablet,exte tablet,ext Practic nded nded ended e release 24 release 24 release 24 hr TAKE ONE hr TAKE ONE hr TAKE (1) (1) ONE (1) TABLET(S) TABLET(S) TABLET(S) BY MOUTH BY MOUTH BY MOUTH ONCE A DAY. ONCE A DAY. ONCE A DAY. metoprolol metoprolol No 1 Q1D metoprolol [facility] succinate succinate succinate Family ER 100 mg ER 100 mg ER 100 mg Practic tablet,exte tablet,exte tablet,ext e nded nded ended release 24 release 24 release 24 hr Take 1 hr Take 1 hr Take 1 tablet tablet tablet every day every day every day by oral by oral by oral route. route. route. rosuvastati rosuvastati No rosuvastat [facility] n 20 mg n 20 mg in 20 mg Famil y tablet TAKE tablet TAKE tablet Practic ONE (1) ONE (1) TAKE ONE e TABLET(S) TABLET(S) (1) BY MOUTH BY MOUTH TABLET(S) ONCE A DAY. ONCE A DAY. BY MOUTH ONCE A DAY. lisinopril lisinopril No lisinopril [facility] 20 20 20 Family mg-hydrochl mg-hydrochl mg-hydroch Practic orothiazide orothiazide lorothiazi e 25 mg 25 mg de 25 mg tablet TAKE tablet TAKE tablet ONE (1) ONE (1) TAKE ONE TABLET(S) TABLET(S) (1) BY MOUTH BY MOUTH TABLET(S) ONCE A DAY. ONCE A DAY. BY MOUTH ONCE A DAY. metformin metformin No metformin [facility] ER 500 mg ER 500 mg ER 500 mg Family tablet,exte tablet,exte tablet,ext Practic nded nded ended e release 24 release 24 release 24 hr TAKE ONE hr TAKE ONE hr TAKE (1) (1) ONE (1) TABLET(S) TABLET(S) TABLET(S) BY MOUTH BY MOUTH BY MOUTH ONCE A DAY. ONCE A DAY. ONCE A DAY. metoprolol metoprolol metoprolol [facility] succinate succinate succinate [facility] ER 100 mg ER 100 mg ER 100 mg Practic tablet,exte tablet,exte tablet,ext e nded nded ended release 24 release 24 release 24 hr TAKE ONE hr TAKE ONE hr TAKE (1) (1) ONE (1) TABLET(S) TABLET(S) TABLET(S) BY MOUTH BY MOUTH BY MOUTH ONCE A DAY. ONCE A DAY. ONCE A DAY. mirtazapine mirtazapine No 1 Q1D mirtazapin [facility] 15 mg 15 mg e 15 mg Family tablet Take tablet Take tablet Practic 1 tablet 1 tablet Take 1 e every day every day tablet by oral by oral every day route for route for by oral 30 days. 30 days. route for 30 days. rosuvastati rosuvastati No rosuvastat [facility] n 20 mg n 20 mg in 20 mg Famil y tablet TAKE tablet TAKE tablet Practic ONE (1) ONE (1) TAKE ONE e TABLET(S) TABLET(S) (1) BY MOUTH BY MOUTH TABLET(S) ONCE A DAY. ONCE A DAY. BY MOUTH ONCE A DAY. trazodone trazodone No 1 Q1D trazodone [facility] 50 mg 50 mg 50 mg Family tablet Take tablet Take tablet Practic 1 tablet 1 tablet Take 1 e every day every day tablet by oral by oral every day route at route at by oral bedtime for bedtime for route at 7 days. 7 days. bedtime for 7 days. Immunizations Ordered Immunization Filled Immunization Date Status Commen ts Source Name Name influenza, high-dose, influenza, high-dose, 2022-05-31 Completed [facility] quadrivalent quadrivalent 11:48:00 Practice influenza, high-dose, influenza, high-dose, 2021-02-04 Completed [facility] quadrivalent quadrivalent 09:26:00 Practice influenza, high-dose, influenza, high-dose, 2021-02-04 Completed [facility] quadrivalent quadrivalent 09:26:00 Practice influenza, high-dose, influenza, high-dose, 2021-02-04 Completed [facility] quadrivalent quadrivalent 09:26:00 Practice COVID-19, mRNA, COVID-19, mRNA, 2020-07-28 Completed [facility] LNP-S, PF, 30 mcg/0.3 LNP-S, PF, 30 mcg/0.3 00:00:00 Practice mL dose mL dose (Pfizer-BioNTech) (Pfizer-BioNTech) COVID-19, mRNA, COVID-19, mRNA, 2020-07-28 Completed [facility] LNP-S, PF, 30 mcg/0.3 LNP-S, PF, 30 mcg/0.3 00:00:00 Practice mL dose mL dose (Pfizer-BioNTech) (Pfizer-BioNTech) COVID-19, mRNA, COVID-19, mRNA, 2020-07-28 Completed [facility] LNP-S, PF, 30 mcg/0.3 LNP-S, PF, 30 mcg/0.3 00:00:00 Practice mL dose mL dose (Pfizer-BioNTech) (Pfizer-BioNTech) COVID-19, mRNA, COVID-19, mRNA, 2020-06-30 Completed [facility] LNP-S, PF, 30 mcg/0.3 LNP-S, PF, 30 mcg/0.3 00:00:00 Practice mL dose mL dose (Pfizer-BioNTech) (Pfizer-BioNTech) COVID-19, mRNA, COVID-19, mRNA, 2020-06-30 Completed [facility] LNP-S, PF, 30 mcg/0.3 LNP-S, PF, 30 mcg/0.3 00:00:00 Practice mL dose mL dose (Pfizer-BioNTech) - (Pfizer-BioNTech) - ML ML COVID-19, mRNA, COVID-19, mRNA, 2020-06-30 Completed [facility] LNP-S, PF, 30 mcg/0.3 LNP-S, PF, 30 mcg/0.3 00:00:00 Practice mL dose mL dose (Pfizer-BioNTech) - (Pfizer-BioNTech) - ML ML COVID-19, mRNA, COVID-19, mRNA, 2020-05-28 Completed [facility] LNP-S, PF, 30 mcg/0.3 LNP-S, PF, 30 mcg/0.3 00:00:00 Practice mL dose mL dose (Pfizer-BioNTech) - (Pfizer-BioNTech) - ML ML COVID-19, mRNA, COVID-19, mRNA, 2020-05-28 Completed [facility] age Family LNP-S, PF, 30 mcg/0.3 LNP-S, PF, 30 mcg/0.3 00:00:00 Practice mL dose mL dose (Pfizer-BioNTech) - (Pfizer-BioNTech) - ML ML zoster recombinant zoster recombinant 2020-03-03 Completed [facility] 13:54:00 Practice zoster recombinant zoster recombinant 2020-03-03 Completed [facility] 13:54:00 Practice zoster recombinant zoster recombinant 2020-03-03 Completed [facility] 13:54:00 Practice influenza, influenza, 2019-12-25 Completed [facility] injectable, injectable, 00:00:00 Practice quadrivalent quadrivalent influenza, influenza, 2019-12-25 Completed [facility] injectable, injectable, 00:00:00 Practice quadrivalent quadrivalent influenza, influenza, 2019-12-25 Completed [facility] injectable, injectable, 00:00:00 Practice quadrivalent quadrivalent influenza, high dose influenza, high dose 2019-02-25 Completed [facility] seasonal seasonal 11:30:00 Practice influenza, high dose influenza, high dose 2019-02-25 Completed [facility] seasonal seasonal 11:30:00 Practice influenza, high dose influenza, high dose 2019-02-25 Completed [facility] seasonal seasonal 11:30:00 Practice pneumococcal pneumococcal 2018-02-18 Completed [facility] polysaccharide PPV23 polysaccharide PPV23 14:50:00 Practice pneumococcal pneumococcal 2018-02-18 [facility] PPV[facility] polysaccharide PPV23 14:50:00 Practice pneumococcal pneumococcal 2018-02-18 Completed [facility] polysaccharide PPV23 polysaccharide PPV23 14:50:00 Practice influenza, influenza, 2018-02-18 Completed [facility] injectable, injectable, 11:07:50 Practice quadrivalent quadrivalent influenza, influenza, 2018-02-18 Completed [facility] injectable, injectable, 11:07:50 Practice quadrivalent quadrivalent influenza, influenza, 2018-02-18 Completed [facility] injectable, injectable, 11:07:50 Practice quadrivalent quadrivalent zoster recombinant zoster recombinant 2017-08-28 Completed [facility] 12:29:00 Practice zoster recombinant zoster recombinant 2017-08-28 Completed [facility] 12:29:00 Practice zoster recombinant zoster recombinant 2017-08-28 Completed [facility] 12:29:00 Practice pneumococcal pneumococcal 2017-01-03 Completed [facility] ramu conjugate PCV 13 conjugate PCV 13 12:39:39 Pr actice pneumococcal pneumococcal 2017-01-03 Completed [facility] ramu conjugate PCV 13 conjugate PCV 13 12:39:39 Pr actice pneumococcal pneumococcal 2017-01-03 Completed [facility] conjugate PCV 13 conjugate PCV 13 12:39:39 Pr actice Influenza, Influenza, 2017-01-03 Completed [facility] injectable, MDCK, injectable, MDCK, 11:36:44 Practice quadrivalent quadrivalent Influenza, Influenza, 2017-01-03 Completed [facility] injectable, MDCK, injectable, MDCK, 11:36:44 Practice quadrivalent quadrivalent Influenza, Influenza, 2017-01-03 Completed [facility] injectable, MDCK, injectable, MDCK, 11:36:44 Practice quadrivalent quadrivalent pneumococcal 2016-03-21 Completed [facility] 23-valent vaccine 22:17:00 [facility] pneumococcal 2016-03-21 Completed [facility] 23-valent vaccine 22:17:00 [facility] pneumococcal 2016-03-21 Completed [facility] 23-valent vaccine 22:17:00 [place] pneumococcal 2016-03-21 Completed [facility] 23-valent vaccine 22:17:00 [place] influenza virus 2016-03-21 Completed [facility] vaccine, inactivated 22:14:00 Herm erwin influenza virus 2016-03-21 Completed [facility], inactivated 22:14:00 Herm erwin influenza virus 2016-03-21 Completed [facility], inactivated 22:14:00 Herm erwin influenza virus 2016-03-21 Completed [facility], inactivated 22:14:00 Herm erwin influenza, influenza, 2015-12-25 Completed [facility] unspecified unspecified 00:00:00 Practice formulation formulation influenza, influenza, 2015-12-25 Completed [facility] unspecified unspecified 00:00:00 Practice formulation formulation influenza, influenza, 2015-12-25 Completed [facility] unspecified unspecified 00:00:00 Practice formulation formulation Tdap Tdap 2015-03-26 Completed [facility] 00:00:00 Practice Tdap Tdap 2015-03-26 Completed [facility] 00:00:00 Practice Tdap Tdap 2015-03-26 Completed [facility] 00:00:00 Practice Vital Signs Vital Name Observation Time Observation Value Comments Source BP Systolic 2022-10-30 00:00:00 151 mm[Hg] [facility] BP Diastolic 2022-10-30 00:00:00 80 mm[Hg] [facility] BP Diastolic 2022-05-31 00:00:00 93 mm[Hg] [facility] Height 2022-05-31 00:00:00 64 [in_i] [facility] BMI (Body Mass Index) 2022-05-31 00:00:00 20.6 kg/m2 [facility] BP Systolic 2022-05-31 00:00:00 156 mm[Hg] [facility] Body Weight 2022-05-31 00:00:00 120 [lb_av] [facility] BP Diastolic 2021-08-09 00:00:00 96 mm[Hg] [facility] Height 2021-08-09 00:00:00 64 [in_i] [facility] BP Systolic 2021-08-09 00:00:00 175 mm[Hg] [facility] BP Diastolic 2021-02-03 00:00:00 105 mm[Hg] [facility] Height 2021-02-03 00:00:00 64 [in_i] [facility] BMI (Body Mass Index) 2021-02-03 00:00:00 18.9 kg/m2 [facility] BP Systolic 2021-02-03 00:00:00 184 mm[Hg] [facility] Body Weight 2021-02-03 00:00:00 110 [lb_av] [facility] BP Diastolic 2020-08-31 00:00:00 100 mm[Hg] [facility] Height 2020-08-31 00:00:00 64 [in_i] [facility] BP Systolic 2020-08-31 00:00:00 171 mm[Hg] [facility] BP Diastolic 2020-03-03 00:00:00 91 mm[Hg] [facility] Height 2020-03-03 00:00:00 64 [in_i] [facility] BMI (Body Mass Index) 2020-03-03 00:00:00 20.6 kg/m2 [facility] BP Systolic 2020-03-03 00:00:00 161 mm[Hg] [facility] Body Weight 2020-03-03 00:00:00 120 [lb_av] [facility] BP Diastolic 2019-09-11 00:00:00 82 mm[Hg] [facility] Height 2019-09-11 00:00:00 64 [in_i] [facility] BMI (Body Mass Index) 2019-09-11 00:00:00 20.6 kg/m2 [facility] BP Systolic 2019-09-11 00:00:00 178 mm[Hg] [facility] Body Weight 2019-09-11 00:00:00 120 [lb_av] [facility] BP Diastolic 2019-06-10 00:00:00 85 mm[Hg] [facility] Height 2019-06-10 00:00:00 64 [in_i] [facility] BP Systolic 2019-06-10 00:00:00 143 mm[Hg] [facility] BP Diastolic 2019-02-25 00:00:00 70 mm[Hg] [facility] Height 2019-02-25 00:00:00 64 [in_i] [facility] BP Systolic 2019-02-25 00:00:00 118 mm[Hg] [facility] BP Diastolic 2018-08-20 00:00:00 64 mm[Hg] [facility] Height 2018-08-20 00:00:00 64 [in_i] [facility] BP Systolic 2018-08-20 00:00:00 118 mm[Hg] [facility] Systolic (mm Hg) 2016-03-21 17:27:00 Jamie rial [place] Diastolic (mm Hg) 2016-03-21 17:27:00 Mem orial [place] Heart Rate 2016-03-21 17:27:00 [facility] Respitory Rate 2016-03-21 17:27:00 Memori al [place] Systolic (mm Hg) 2016-03-21 14:04:00 Jamie rial [place] Diastolic (mm Hg) 2016-03-21 14:04:00 Mem orial [facility] Respitory Rate 2016-03-21 14:04:00 Memori al [place] Heart Rate 2016-03-21 14:04:00 [facility] Respitory Rate 2016-03-21 14:00:00 Memori al [place] Systolic (mm Hg) 2016-03-21 11:42:00 Jamie rial [facility] Diastolic (mm Hg) 2016-03-21 11:42:00 Mem orial [place] Heart Rate 2016-03-21 11:42:00 [facility] Temperature Oral (F) 2016-03-21 06:25:00 98.6 F [facility] Temperature Oral (F) 2016-03-19 17:51:00 97.9 F [facility] Temperature Oral (F) 2016-03-19 15:15:00 98.4 F [facility] Weight 2016-02-19 16:26:00 [facility] Height 2016-02-16 12:16:00 162.56 cm [facility] Height 2016-02-16 06:54:00 162.56 cm [facility] Height 2016-02-16 03:32:00 162.56 cm Librado Hopper Weight 2016-02-11 16:51:00 Librado Hopper BMI Calculated 2016-02-11 16:51:00 Juanjose Melendez BMI Calculated 2016-02-10 23:38:00 Juanjose Melendez Weight 2016-02-10 23:38:00 [facility] Procedures Procedure Date / Time Performing Clinician Source Performed MAMMO, screening, digital, 2019-02-25 00:00:00 [facility] bilateral Practice Gastrointestinal Surgery [facility] Incision of [place] [facility] kurt Practice Jaw Arthroscopy/surgery [facility] Plan of Care Planned Activity Planned Date Details Comments Source Diagnostic Test 2022-10-30 CBC w/ auto diff [facility] Pending 00:00:00 [code = CBC w/ auto Practice diff] Diagnostic Test 2022-10-30 CMP, serum or plasma [facility] Pending 00:00:00 [code = CMP, serum Practice or plasma] Diagnostic Test 2022-10-30 TSH, serum, reflex [facility] Pending 00:00:00 free T4 [code = TSH, Practic e serum, reflex free T4] Diagnostic Test 2022-10-30 HbA1c (hemoglobin [facility] Pending 00:00:00 A1c), blood [code = Practice HbA1c (hemoglobin A1c), blood] Diagnostic Test 2022-10-30 urinalysis complete, [facility] Pending 00:00:00 reflex culture [code Practic e = urinalysis complete, reflex culture] Future Appointment 2022-12-11 Riley Patton, [id number] [facility] 08:30:[address]; Practice [address], [place] [address] Instructions [facility] Encounters Start End Encounter Admission Attending Care Care Encounter Source Date/Time Date/Time Type Type Clinicians Facility Department ID 2021-08-23 Outpatient ED [facility] [id number] [place] 09:01:01 [id number] Health 2022-10-30 2022-10-30 Leeann S [facility] [place] - [id number] [facility] 00:00:00 00:00:00 Bola, [facility] Family DO: [id number] Medical - Prac tic [place] - [place] [address], [facility] [address], [place] [address] , Ph. 2022-06-13 2022-06-13 Outpatient Bui_Q_HOU_M VFP VFP [id number] [facility] 00:00:00 00:00:00 D [id number] Family Practic e 2022-06-13 2022-06-13 Outpatient Bui_Q_HOU_M VFP VFP [id number] [facility] 00:00:00 00:00:00 D [id number] Family Practic e 2022-06-13 2022-06-13 Outpatient Bui_Q_HOU_M VFP VFP [id number] [facility] 00:00:00 00:00:00 D [id number] Family Practic e 2022-05-31 2022-05-31 Outpatient Bui_Q VFP VFP [id number] [facility] 00:00:00 00:00:00 [id number] Family Practic e 2022-05-31 2022-05-31 Outpatient Bui_Q_WAGDN VFP VFP [id number] [facility] 00:00:00 00:00:00 U [id number] Family Practic e 2022-05-31 2022-05-31 Outpatient Bui_Q_WAGDN VFP VFP [id number] [facility] 00:00:00 00:00:00 U [id number] Family Practic e 2022-05-31 2022-05-31 Riley Lindsey [facility]FP [place] - [id number] [address] [place] [address] 00:00:00 00:00:00 MD Pooja: [facility] [id number] Medical - Pract[place] c [place] - [place] [address], [facility] [address], [place] [address] , Ph. 2021-08-09 2021-08-09 Outpatient Bui_Q VFP VFP [id number] [facility] 10:33:00 10:33:00 [id number] Family Practic e 2021-08-09 2021-08-09 Outpatient Bui_Q_WAGDN VFP VFP [id number] [facility] 10:33:00 10:33:00 U [id number] Family Practic e 2021-08-09 2021-08-09 Outpatient Bui_Q VFP VFP [id number] [facility] 00:00:00 00:00:00 [id number] Family Practic e 2021-08-09 2021-08-09 Leeann S VFP [place] - [id number] [facility]age 00:00:00 00:00:00 Bola, [facility] DO: [id number] Medical - Prac tic [place] [address] [facility], [address], [place] [address] , Ph. 2021-02-10 2021-02-10 Outpatient Bui_Q_WAGDN VFP VFP [id number] [facility] 08:54:00 08:54:00 U [id number] Family Practic e 2021-02-10 2021-02-10 Outpatient Bui_Q_WAGDN VFP VFP [id number] [facility] 08:54:00 08:54:00 U [id number] Family Practic e 2021-02-03 2021-02-03 Outpatient Bui_Q VFP VFP [id number] [facility] 11:07:00 11:07:00 [id number] Family Practic e 2021-02-03 2021-02-03 Riley Lindsey [facility] [place] - [id number] [facility] 00:00:00 00:00:00 MD Pooja: [facility] [id number] Medical - Practi c Shadow [facility] [place] [facility], [address], [place] [address] , Ph. 2020-12-17 2020-12-17 Outpatient Bui_Q_WAG VFP VFP [id number] [facility] 08:25:00 08:25:00 [id number] Family Practic e 2020-09-03 2020-09-03 Outpatient Bui_Q VFP VFP [id number] [facility] 05:54:00 05:54:00 [id number] Family Practic e 2020-08-31 2020-08-31 Outpatient Bui_Q_WAG VFP VFP [id number] [facility] 11:50:00 11:50:00 [id number] Family Practic e 2020-08-31 2020-08-31 Riley Lindsey VFP [place] - [id number] [facility] 00:00:00 00:00:00 MD Pooja: [facility] y [address] [address], ([place] [address] , Ph. 2020-03-04 2020-03-04 Outpatient Bui_Q_WAG VFP VFP [id number] [facility] 12:55:00 12:55:00 [id number] Family Practic e 2020-03-04 2020-03-04 Outpatient Bui_Q_WAG VFP VFP [id number] [facility] 12:55:00 12:55:00 [id number] Family Practic e 2020-03-04 2020-03-04 Outpatient Bui_Q VFP VFP [id number] [facility] 12:55:00 12:55:00 [id number] Family Practic e 2020-03-03 2020-03-03 Outpatient Bui_Q_WAG VFP VFP [id number] [facility] 10:43:00 10:43:00 [id number] Family Practic e 2020-03-03 2020-03-03 Riley Lindsey VFP [place] - [id number] [facility] 00:00:00 00:00:00 MD Pooja: [facility] [address] [facility] [address] [address], ([facility]) [place] [address] , Ph. 2019-09-27 2019-09-27 Outpatient Bui_Q_WAG VFP VFP [id number] [facility] 11:46:00 11:46:00 [id number] Family Practic e 2019-09-14 2019-09-14 Outpatient Bui_Q_WAG VFP VFP [id number] [facility] 07:52:00 07:52:00 [id number] Family Practic e 2019-09-11 2019-09-11 Outpatient Bui_Q_WAG VFP VFP [id number] [facility] 03:02:00 03:02:00 [id number] Family Practic e 2019-09-11 2019-09-11 Riley Lindsey VFP [place] - [id number] [facility] 00:00:00 00:00:00 MD Pooja: [facility] [address] [address], ([facility]) [place] [address] , Ph. 2019-09-10 2019-09-10 Outpatient Bui_Q_WAG VFP VFP [id number] [facility] 10:40:00 10:40:00 [id number] Family Practic e 2019-07-14 2019-07-14 Outpatient Bui_Q VFP VFP [id number] [facility] 04:07:00 04:07:00 [id number] Family Practic e 2019-06-12 2019-06-12 Outpatient Bui_Q VFP VFP [id number] [facility] 03:04:00 03:04:00 [id number] Family Practic e 2019-06-11 2019-06-11 Outpatient Bui_Q_WAG VFP VFP [id number] [facility] 08:39:00 08:39:00 [id number] Family Practic e 2019-06-10 2019-06-10 Outpatient Bui_Q_WAG VFP VFP [id number] [facility] 07:10:00 07:10:00 [id number] Family Practic e 2019-06-10 2019-06-10 Riley Lindsey VFP [place] - [id number] [facility] 00:00:00 00:00:00 MD Pooja: [facility] [address] [facility] [address] [address], ([facility]) [place] [address] , Ph. 2019-04-15 2019-04-15 Outpatient Bui_Q VFP VFP [id number] [facility] 06:20:00 06:20:00 [id number] Family Practic e 2019-04-10 2019-04-10 Outpatient Bui_Q VFP VFP [id number]- [id number] [facility] 09:23:00 09:23:00 [id number] Family Practic e 2019-04-10 2019-04-10 Outpatient Bui_Q_WAG VFP VFP [id number] [facility] 09:23:00 09:23:00 [id number] Family Practic e 2019-02-25 2019-02-25 Riley Lindsey VF [place] - [id number] [facility] 00:00:00 00:00:00 MD Pooja: [facility] [address] [facility] - [facility] [place], VM_HOU[address]Pear [address], [facility] [place] [address] , Ph. 2018-08-20 2018-08-20 Riley Lindsey [facility] [place] - [id number] [facility] 00:00:00 00:00:00 MD Pooja: [facility] [address] [facility] [place], [facility] - e [address], [facility] [place] [facility] [address] , Ph. 2016-04-13 2016-04-13 Outpatient IE [place] [id number] [facility] 13:45:00 13:45:00 00 [facility] 2016-04-13 2016-04-13 Outpatient MHIE IE [id number] [facility] 13:45:00 13:45:00 00 [facility] 2016-02-10 2016-03-21 [facility] [id number] [facility] 18:05:00 22:55:[address] 2016-02-10 2016-03-21 Inpatient [facility] [id number] [facility] 18:05:00 22:55:[address] 2016-02-10 2016-03-21 Outpatient Federico [facility] [id number] 12:05:00 16:55:00 Carlos Jaime Results Test Description Test Time Test Comments Results Result Comments Source ELECTROLYTES 2016-03-14 17:52:00 Test Item Value Reference Range Interpretation Comme nts AGAP (test code = AGAP) 13.6 10.0-20.0 [facility]abfMBWTEESCHYHF0475-50-86 17:52:00 Test Item Value Reference Range Interpretation Comments eGFR (test code = eGFR) 110 [facility] HospitalAzcldzhTRQQWHRNXMQE5753-02-81 17:52:00 Test Item Value Reference Range Interpretation Comments Calcium Lvl (test code = Calcium Lvl) 9.1 8.5-10.5 [facility] HospitalVgfcdtaKMQLREAVOPCQ1593-71-79 17:52:00 Test Item Value Reference Range Interpretation Comments BUN (test code = BUN) 23 7-22 [facility] HospitalAwzsmdvUCCOVZMPNBIB7742-63-36 17:52:00 Test Item Value Reference Range Interpretation Comments Glucose Lvl (test code = Glucose Lvl) 105 70-99 [facility] HospitalVparamtCZLVEBQEPZRS5313-23-41 17:52:00 Test Item Value Reference Range Interpretation Comments Creatinine Lvl (test code = Creatinine 0.43 0.50-1.40 Lvl) [facility] HospitalRmybwgkFXYZAHXZQABR5366-50-47 17:52:00 Test Item Value Reference Range Interpretation Comments Sodium Lvl (test code = Sodium Lvl) 141 135-145 [facility] HospitalZyaoozbYRVVFJVFZEEN4801-97-27 17:52:00 Test Item Value Reference Range Interpretation Comments CO2 (test code = CO2) 28 24-32 [facility] HospitalFciqfvnVKVFGDGPBVFK0412-21-11 17:52:00 Test Item Value Reference Range Interpretation Comments Potassium Lvl (test code = Potassium 4.6 3.5-5.1 Lvl) [facility] HospitalNroqjonDEXICWYVSOOH5676-95-64 17:52:00 Test Item Value Reference Range Interpretation Comments Chloride Lvl (test code = Chloride Lvl) 104 95-[address] [facility] CenterIqmpwybHQNNVRMCSS6397-82-89 17:52:00 Test Item Value Reference Range Interpretation Comments RDW (test code = RDW) 18.8 11.5-14.[address] [facility] CenterCuhyaajLSLVUDEZER2892-18-19 17:52:00 Test Item Value Reference Range Interpretation Comments Platelet (test code = Platelet) 328 133-[address] [facility] CenterPlqiverXYMLNYMYFL8373-56-48 17:52:00 Test Item Value Reference Range Interpretation Comments MPV (test code = MPV) 8.0 7.4-10.[address] [facility] CenterRtobxmuVQCMETCGPH3118-57-94 17:52:00 Test Item Value Reference Range Interpretation Comments RBC (test code = RBC) 3.45 4.20-5.[address] [facility] CenterVntpzelQTTPPJBQAB7554-89-85 17:52:00 Test Item Value Reference Range Interpretation Comments MCHC (test code = MCHC) 31.4 32.0-36.[address] [facility] CenterPymcxbaYFHFFEZMAM0155-65-97 17:52:00 Test Item Value Reference Range Interpretation Comments MCV (test code = MCV) 94.4 80.0-98.[address] [facility] CenterCglilibMVXBDKVPSC9836-89-10 17:52:00 Test Item Value Reference Range Interpretation Comments Hct (test code = Hct) 32.6 36.0-48.[address] [facility] CenterFxnkyxqRJWSUXUUVB2175-10-67 17:52:00 Test Item Value Reference Range Interpretation Comments Hgb (test code = Hgb) 10.2 12.0-16.[address] [facility] CenterMsfbnavDHPMBJGSFG5088-90-88 17:52:00 Test Item Value Reference Range Interpretation Comments WBC (test code = WBC) 10.0 3.7-10.[address] [facility] CenterObjfdvsIVGDHUIQAF0620-07-06 17:52:00 Test Item Value Reference Range Interpretation Comments MCH (test code = MCH) 29.6 pg 27.0-31.[address] [facility] CenterAydacsjEYPRHBHSJT0916-79-33 17:52:00 Test Item Value Reference Range Interpretation Comments Eosinophils # (test code 0.1 See_Comment [A utomated message] The = Eosinophils #) system whic h generated this result tra nsmitted reference range : <=0.5. The reference r ronaldo was not used to int erpret this result as normal/abnormal . [facility] CenterGbizbfdXMYMFOLHMK5062-31-27 17:52:00 Test Item Value Reference Range Interpretation Comments Eosinophils (test code = 1.3 See_Comment [A utomated message] The Eosinophils) system which ge nerated this result tra nsmitted reference range : <=4.0. The reference r ronaldo was not used to int erpret this result as normal/abnormal . [facility] CenterSlzilyoHVWJUZNMJQ9252-94-72 17:52:00 Test Item Value Reference Range Interpretation Comments Monocytes (test code = Monocytes) 7.5 2.0-12.[address] [facility] CenterHumujgtFDNSLCSXIZ3458-44-80 17:52:00 Test Item Value Reference Range Interpretation Comments Lymphocytes # (test code = Lymphocytes 2.4 1.0-5.5 #) [facility] CenterKsqbdpdIXZHOGMMXA2343-63-45 17:52:00 Test Item Value Reference Range Interpretation Comments Segs-Bands # (test code = Segs-Bands #) 6.7 1.5-8.[address] [facility] CenterGkajwueQSNLSEAIZR7867-69-27 17:52:00 Test Item Value Reference Range Interpretation Comments Basophils (test code = 0.3 See_Comment [Aut omated message] The Basophils) system which ge nerated this result tra nsmitted reference range : <=1.0. The reference r ronaldo was not used to int erpret this result as normal/abnormal . [facility] CenterSspnthyYFPLYAMNEF4212-32-19 17:52:00 Test Item Value Reference Range Interpretation Comments Segs (test code = Segs) 66.6 45.0-75.[address] [facility] CenterJxzbwvvLSFVXRRUHR5370-50-80 17:52:00 Test Item Value Reference Range Interpretation Comments Monocytes # (test code 0.7 See_Comment [Aut omated message] The = Monocytes #) system which generated this result tra nsmitted reference range : <=0.8. The reference r ronaldo was not used to int erpret this result as normal/abnormal . [facility] CenterMkzttlqJHNESEMZCV9135-66-48 17:52:00 Test Item Value Reference Range Interpretation Comments Lymphocytes (test code = Lymphocytes) 24.3 20.0-40.0 [facility] HospitalNhhfbrbNQYEBRTVWTCV7264-41-11 17:52:00 Test Item Value Reference Range Interpretation Comments AGAP (test code = AGAP) 13.6 10.0-20.0 [facility] HospitalAtpxajkAHJNMNSQXGUE1352-74-53 17:52:00 Test Item Value Reference Range Interpretation Comments eGFR (test code = eGFR) 110 [facility] HospitalLgaoldeIUCTTEBXESXE3888-90-84 17:52:00 Test Item Value Reference Range Interpretation Comments Calcium Lvl (test code = Calcium Lvl) 9.1 8.5-10.5 [facility] HospitalWrfkgmsWJJAJZUIUILU0309-34-49 17:52:00 Test Item Value Reference Range Interpretation Comments BUN (test code = BUN) 23 7-22 [facility] HospitalJnefwsbERFDPQFCTGBJ4188-43-46 17:52:00 Test Item Value Reference Range Interpretation Comments Glucose Lvl (test code = Glucose Lvl) 105 70-99 [facility] HospitalJyjrizzIRNIECLGJWWS2103-52-40 17:52:00 Test Item Value Reference Range Interpretation Comments Creatinine Lvl (test code = Creatinine 0.43 0.50-1.40 Lvl) [facility] HospitalUmrgfpwBKGZSQVWTGGD0155-26-21 17:52:00 Test Item Value Reference Range Interpretation Comments Sodium Lvl (test code = Sodium Lvl) 141 135-145 [facility] HospitalCqmmqtfMDJZPTZCUKHS3322-05-48 17:52:00 Test Item Value Reference Range Interpretation Comments CO2 (test code = CO2) 28 24-32 [facility] HospitalTmqpklhNOAVBDNPHFCW3043-67-09 17:52:00 Test Item Value Reference Range Interpretation Comments Potassium Lvl (test code = Potassium 4.6 3.5-5.1 Lvl) [facility] HospitalTwveztmYQNLYALPBQEU5060-60-07 17:52:00 Test Item Value Reference Range Interpretation Comments Chloride Lvl (test code = Chloride Lvl) 104 95-[address] [facility] CenterTgzunwlOWNNEVMJZS9624-65-42 17:52:00 Test Item Value Reference Range Interpretation Comments RDW (test code = RDW) 18.8 11.5-14.[address] [facility] CenterWnjfgphXPKNFKUUMH0622-82-87 17:52:00 Test Item Value Reference Range Interpretation Comments Platelet (test code = Platelet) 328 133-[address] [facility] CenterJvnxnjhPOGAGWAFYL5954-50-51 17:52:00 Test Item Value Reference Range Interpretation Comments MPV (test code = MPV) 8.0 7.4-10.[address] [facility] CenterIjbfwxpKSHGVPIOFG9417-26-11 17:52:00 Test Item Value Reference Range Interpretation Comments RBC (test code = RBC) 3.45 4.20-5.[address] [facility] CenterWpigjxfWOVZEAMVNA8890-74-57 17:52:00 Test Item Value Reference Range Interpretation Comments MCHC (test code = MCHC) 31.4 32.0-36.[address] [facility] CenterGtvljgcMKVGOWLINE8825-31-34 17:52:00 Test Item Value Reference Range Interpretation Comments MCV (test code = MCV) 94.4 80.0-98.[address] [facility] CenterOcocdjzPPRSISIOPX3629-77-30 17:52:00 Test Item Value Reference Range Interpretation Comments Hct (test code = Hct) 32.6 36.0-48.[address] [facility] CenterNwyzuqnNQYHSKXMQH4359-33-38 17:52:00 Test Item Value Reference Range Interpretation Comments Hgb (test code = Hgb) 10.2 12.0-16.[address] [facility] CenterQipehriOXWUFTQPTL4645-85-55 17:52:00 Test Item Value Reference Range Interpretation Comments WBC (test code = WBC) 10.0 3.7-10.[address] [facility] CenterCfimgaoOXLXBXZJEI9792-71-24 17:52:00 Test Item Value Reference Range Interpretation Comments MCH (test code = MCH) 29.6 pg 27.0-31.[address] [facility] CenterCvmmhhnXYLDKAUDYJ8867-15-08 17:52:00 Test Item Value Reference Range Interpretation Comments Eosinophils # (test code 0.1 See_Comment [A utomated message] The = Eosinophils #) system whic h generated this result tra nsmitted reference range : <=0.5. The reference r ronaldo was not used to int erpret this result as normal/abnormal . [facility] CenterGvzvpzdRLGKQRTQZM8617-44-57 17:52:00 Test Item Value Reference Range Interpretation Comments Eosinophils (test code = 1.3 See_Comment [A utomated message] The Eosinophils) system which ge nerated this result tra nsmitted reference range : <=4.0. The reference r ronaldo was not used to int erpret this result as normal/abnormal . [facility] CenterCpuviucLWLYNHUXJL9695-78-97 17:52:00 Test Item Value Reference Range Interpretation Comments Monocytes (test code = Monocytes) 7.5 2.0-12.[address] [facility] CenterEhfvngnVAQZNWWQRI7459-95-59 17:52:00 Test Item Value Reference Range Interpretation Comments Lymphocytes # (test code = Lymphocytes 2.4 1.0-5.5 #) [facility] CenterTwuwyibYMNOEYPJDY9053-12-23 17:52:00 Test Item Value Reference Range Interpretation Comments Segs-Bands # (test code = Segs-Bands #) 6.7 1.5-8.[address] [facility] CenterOmjsqnyLCMVKQCEOG5815-71-22 17:52:00 Test Item Value Reference Range Interpretation Comments Basophils (test code = 0.3 See_Comment [Aut omated message] The Basophils) system which ge nerated this result tra nsmitted reference range : <=1.0. The reference r ronaldo was not used to int erpret this result as normal/abnormal . [facility] CenterYlmyyyfDMBFNMTNIR0964-21-57 17:52:00 Test Item Value Reference Range Interpretation Comments Segs (test code = Segs) 66.6 45.0-75.[address] [facility] CenterNxlyxsnWINAOXJSEZ8385-83-23 17:52:00 Test Item Value Reference Range Interpretation Comments Monocytes # (test code 0.7 See_Comment [Aut omated message] The = Monocytes #) system which generated this result tra nsmitted reference range : <=0.8. The reference r ronaldo was not used to int erpret this result as normal/abnormal . [facility] CenterVqnyscxYWCENIMUNX8935-81-58 17:52:00 Test Item Value Reference Range Interpretation Comments Lymphocytes (test code = Lymphocytes) 24.3 20.0-40.0 [facility] HospitalSxavorxCDPQIEYOVJVI2604-74-49 17:52:00 Test Item Value Reference Range Interpretation Comments AGAP (test code = AGAP) 13.6 10.0-20.0 [facility] HospitalOuaqcnzFYFNXLMIXJTE2507-11-54 17:52:00 Test Item Value Reference Range Interpretation Comments eGFR (test code = eGFR) 110 [facility] HospitalIjbhnfgUZLUOFPNUHFM2610-55-63 17:52:00 Test Item Value Reference Range Interpretation Comments Calcium Lvl (test code = Calcium Lvl) 9.1 8.5-10.5 [facility] HospitalBfnqnjxYUECORRODVRP0263-91-63 17:52:00 Test Item Value Reference Range Interpretation Comments BUN (test code = BUN) 23 7-22 [facility] HospitalCzbnvjeUAPXEFCWFBPS5395-42-13 17:52:00 Test Item Value Reference Range Interpretation Comments Glucose Lvl (test code = Glucose Lvl) 105 70-99 [facility] HospitalOfeqevfVAYTTPATEHFG0681-43-83 17:52:00 Test Item Value Reference Range Interpretation Comments Creatinine Lvl (test code = Creatinine 0.43 0.50-1.40 Lvl) [facility] HospitalOhfxgrtVEAODRSOIIJX2954-52-22 17:52:00 Test Item Value Reference Range Interpretation Comments Sodium Lvl (test code = Sodium Lvl) 141 135-145 [facility] HospitalMgnmfcyPQAVTMIWRGHO6164-77-72 17:52:00 Test Item Value Reference Range Interpretation Comments CO2 (test code = CO2) 28 24-32 [facility] HospitalGhqpqhjHSSAUJDAVUGR6447-58-31 17:52:00 Test Item Value Reference Range Interpretation Comments Potassium Lvl (test code = Potassium 4.6 3.5-5.1 Lvl) [facility] HospitalDcihsgiOBMKSTUKPTUX3786-39-97 17:52:00 Test Item Value Reference Range Interpretation Comments Chloride Lvl (test code = Chloride Lvl) 104 95-[address] [facility] CenterKeteavdAKRZWEOVQY4460-12-00 17:52:00 Test Item Value Reference Range Interpretation Comments RDW (test code = RDW) 18.8 11.5-14.[address] [facility] CenterJviujuxMAVBZWVNAH5807-96-04 17:52:00 Test Item Value Reference Range Interpretation Comments Platelet (test code = Platelet) 328 133-[address] [facility] CenterQmzicqeEDOQSIYPUP8278-63-03 17:52:00 Test Item Value Reference Range Interpretation Comments MPV (test code = MPV) 8.0 7.4-10.[address] [facility] CenterTpuxutjWFRYOAKPEM9235-14-87 17:52:00 Test Item Value Reference Range Interpretation Comments RBC (test code = RBC) 3.45 4.20-5.[address] [facility] CenterJbtyxgfBLSFCCXTXW9220-46-70 17:52:00 Test Item Value Reference Range Interpretation Comments MCHC (test code = MCHC) 31.4 32.0-36.[address] [facility] CenterEclpmwbZIGMWLULBR7454-56-19 17:52:00 Test Item Value Reference Range Interpretation Comments MCV (test code = MCV) 94.4 80.0-98.[address] [facility] CenterWjktwhgFHGUCUIYTE7070-01-15 17:52:00 Test Item Value Reference Range Interpretation Comments Hct (test code = Hct) 32.6 36.0-48.[address] [facility] CenterFobvsoqYOXAYJXBEE1771-15-39 17:52:00 Test Item Value Reference Range Interpretation Comments Hgb (test code = Hgb) 10.2 12.0-16.[address] [facility] CenterZrncgolQYKQHAZPXN0832-74-13 17:52:00 Test Item Value Reference Range Interpretation Comments WBC (test code = WBC) 10.0 3.7-10.[address] [facility] CenterTzzqnolGJMVHCLCLA3933-56-98 17:52:00 Test Item Value Reference Range Interpretation Comments MCH (test code = MCH) 29.6 pg 27.0-31.[address] [facility] CenterXyzfzgmUHEKXXDNWV5041-69-04 17:52:00 Test Item Value Reference Range Interpretation Comments Eosinophils # (test code 0.1 See_Comment [A utomated message] The = Eosinophils #) system whic h generated this result tra nsmitted reference range : <=0.5. The reference r ronaldo was not used to int erpret this result as normal/abnormal . [facility] CenterGpkbsalUVQENRCLJW5364-23-31 17:52:00 Test Item Value Reference Range Interpretation Comments Eosinophils (test code = 1.3 See_Comment [A utomated message] The Eosinophils) system which ge nerated this result tra nsmitted reference range : <=4.0. The reference r ronaldo was not used to int erpret this result as normal/abnormal . [facility] CenterZvcsnynTXOZTREFNU7425-90-21 17:52:00 Test Item Value Reference Range Interpretation Comments Monocytes (test code = Monocytes) 7.5 2.0-12.[address] [facility] CenterJzsxqqqJCYKWFECRR1123-01-11 17:52:00 Test Item Value Reference Range Interpretation Comments Lymphocytes # (test code = Lymphocytes 2.4 1.0-5.5 #) [facility] CenterLcaaomjAFVVLFCVCZ0481-82-50 17:52:00 Test Item Value Reference Range Interpretation Comments Segs-Bands # (test code = Segs-Bands #) 6.7 1.5-8.[address] [facility] CenterSuezdgdMIMFHFYSKF4544-10-22 17:52:00 Test Item Value Reference Range Interpretation Comments Basophils (test code = 0.3 See_Comment [Aut omated message] The Basophils) system which ge nerated this result tra nsmitted reference range : <=1.0. The reference r ronaldo was not used to int erpret this result as normal/abnormal . [facility] CenterXvfpqrfXCROWYVRYN2749-50-29 17:52:00 Test Item Value Reference Range Interpretation Comments Segs (test code = Segs) 66.6 45.0-75.[address] [facility] CenterWrzwjuePBAVKIGRSO8864-74-49 17:52:00 Test Item Value Reference Range Interpretation Comments Monocytes # (test code 0.7 See_Comment [Aut omated message] The = Monocytes #) system which generated this result tra nsmitted reference range : <=0.8. The reference r ronaldo was not used to int erpret this result as normal/abnormal . [facility] CenterBuofvgbGJNIWZJIWM4042-37-38 17:52:00 Test Item Value Reference Range Interpretation Comments Lymphocytes (test code = Lymphocytes) 24.3 20.0-40.0 [facility] HospitalYjaibiuDKZLYSKYNCAD0292-20-45 17:52:00 Test Item Value Reference Range Interpretation Comments AGAP (test code = AGAP) 13.6 10.0-20.0 [facility] HospitalUsbhavxFVMOGEWXAXIB7107-36-76 17:52:00 Test Item Value Reference Range Interpretation Comments eGFR (test code = eGFR) 110 [facility] HospitalKoexguoXQGNFHJCAAJB3845-48-50 17:52:00 Test Item Value Reference Range Interpretation Comments Calcium Lvl (test code = Calcium Lvl) 9.1 8.5-10.5 [facility] HospitalLtvxkftXRPNRDDIHHQO8207-55-36 17:52:00 Test Item Value Reference Range Interpretation Comments BUN (test code = BUN) 23 7-22 [facility] HospitalTsefkckXZARSFWUZHPT6441-41-90 17:52:00 Test Item Value Reference Range Interpretation Comments Glucose Lvl (test code = Glucose Lvl) 105 70-99 [facility] HospitalEbxdjdmNEBEJQBPECTN5957-72-11 17:52:00 Test Item Value Reference Range Interpretation Comments Creatinine Lvl (test code = Creatinine 0.43 0.50-1.40 Lvl) [facility] HospitalJpazbqkRWZYHWDYUYFP5173-15-91 17:52:00 Test Item Value Reference Range Interpretation Comments Sodium Lvl (test code = Sodium Lvl) 141 135-145 [facility] HospitalIfksvygBIZVXHNMMUVS1521-32-75 17:52:00 Test Item Value Reference Range Interpretation Comments CO2 (test code = CO2) 28 24-32 [facility] HospitalGtwmoiuUHWEMTRHMUGL4738-79-28 17:52:00 Test Item Value Reference Range Interpretation Comments Potassium Lvl (test code = Potassium 4.6 3.5-5.1 Lvl) [facility] HospitalRvpgpgkRITCCVWYAGPV4739-26-92 17:52:00 Test Item Value Reference Range Interpretation Comments Chloride Lvl (test code = Chloride Lvl) 104 95-[address] [facility] CenterKtxhpfrERIENPXBIY8806-67-71 17:52:00 Test Item Value Reference Range Interpretation Comments RDW (test code = RDW) 18.8 11.5-14.[address] [facility] CenterPrfyjltIMDQGHVJQE7730-73-35 17:52:00 Test Item Value Reference Range Interpretation Comments Platelet (test code = Platelet) 328 133-[address] [facility] [id number] 17:52:00 Test Item Value Reference Range Interpretation Comments MPV (test code = MPV) 8.0 7.4-10.[address] [facility] CenterEgaamwsDUEFIRIWYX5459-87-35 17:52:00 Test Item Value Reference Range Interpretation Comments RBC (test code = RBC) 3.45 4.20-5.[address] [facility] CenterTbfnuseBEHEYAGDMB8634-42-14 17:52:00 Test Item Value Reference Range Interpretation Comments MCHC (test code = MCHC) 31.4 32.0-36.[address] [facility] CenterBednwauZNKRBAOVSC2322-65-37 17:52:00 Test Item Value Reference Range Interpretation Comments MCV (test code = MCV) 94.4 80.0-98.[address] [facility] CenterEnwulucLFGDLYZNXB2461-98-40 17:52:00 Test Item Value Reference Range Interpretation Comments Hct (test code = Hct) 32.6 36.0-48.[address] [facility] CenterZgvrnftTVDOUZESEV2180-50-65 17:52:00 Test Item Value Reference Range Interpretation Comments Hgb (test code = Hgb) 10.2 12.0-16.[address] [facility] CenterIghagopVHAUNLOFQV2427-16-62 17:52:00 Test Item Value Reference Range Interpretation Comments WBC (test code = WBC) 10.0 3.7-10.[address] [facility] CenterCukbtliIZOIQVTUUC4440-05-63 17:52:00 Test Item Value Reference Range Interpretation Comments MCH (test code = MCH) 29.6 pg 27.0-31.[address] [facility] CenterKpbhplqKIMUSZXITU2340-64-80 17:52:00 Test Item Value Reference Range Interpretation Comments Eosinophils # (test code 0.1 See_Comment [A utomated message] The = Eosinophils #) system whic h generated this result tra nsmitted reference range : <=0.5. The reference r ronaldo was not used to int erpret this result as normal/abnormal . [facility] CenterZqchnmgYYQNMLFKCR6861-21-22 17:52:00 Test Item Value Reference Range Interpretation Comments Eosinophils (test code = 1.3 See_Comment [A utomated message] The Eosinophils) system which ge nerated this result tra nsmitted reference range : <=4.0. The reference r ronaldo was not used to int erpret this result as normal/abnormal . [facility] CenterVysurbrIAEISGHRLZ6160-99-68 17:52:00 Test Item Value Reference Range Interpretation Comments Monocytes (test code = Monocytes) 7.5 2.0-12.[address] [facility] CenterHdahwikVCLUBFSKEC2180-11-31 17:52:00 Test Item Value Reference Range Interpretation Comments Lymphocytes # (test code = Lymphocytes 2.4 1.0-5.5 #) [facility] CenterZtqjldeZTWHVBUVPH9938-78-60 17:52:00 Test Item Value Reference Range Interpretation Comments Segs-Bands # (test code = Segs-Bands #) 6.7 1.5-8.[address] [facility] CenterPcthhvcIBAXQGHWVD2253-98-48 17:52:00 Test Item Value Reference Range Interpretation Comments Basophils (test code = 0.3 See_Comment [Aut omated message] The Basophils) system which ge nerated this result tra nsmitted reference range : <=1.0. The reference r ronaldo was not used to int erpret this result as normal/abnormal . [facility] CenterGhdzpqcTEHOUAQEGH1317-02-87 17:52:00 Test Item Value Reference Range Interpretation Comments Segs (test code = Segs) 66.6 45.0-75.[address] [facility] CenterJpyusveNMUQJLQECO5535-29-43 17:52:00 Test Item Value Reference Range Interpretation Comments Monocytes # (test code 0.7 See_Comment [Aut omated message] The = Monocytes #) system which generated this result tra nsmitted reference range : <=0.8. The reference r ronaldo was not used to int erpret this result as normal/abnormal . [facility] CenterTvxoulmHUOGSDNXIM9748-92-73 17:52:00 Test Item Value Reference Range Interpretation Comments Lymphocytes (test code = Lymphocytes) 24.3 20.0-40.0 [facility]HgetoaqYKCGKWTZZI9951-11-64 11:26:00 Test Item Value Reference Range Interpretation Comments C-REACTIVE PROTEIN (test code = 5.9 C-REACTIVE PROTEIN) [facility] CampusWwggpasLLSZTMGTVJ9068-86-83 11:26:00 Test Item Value Reference Range Interpretation Comments Prealbumin (test code = Prealbumin) 32.3 18.0-45.0 [facility] CampusQxuzmdyBNQLLFQYXW8820-13-08 11:26:00 Test Item Value Reference Range Interpretation Comments C-REACTIVE PROTEIN (test code = 5.9 C-REACTIVE PROTEIN) [facility] CampusNoxtksbFUZVMDQCBX7867-17-82 11:26:00 Test Item Value Reference Range Interpretation Comments Prealbumin (test code = Prealbumin) 32.3 18.0-45.0 [facility] CampusFzknrpcHYDEGYRXJD7825-42-98 11:26:00 Test Item Value Reference Range Interpretation Comments C-REACTIVE PROTEIN (test code = 5.9 C-REACTIVE PROTEIN) [facility] CampusGxnirjrZUAUUSRGAI5438-69-72 11:26:00 Test Item Value Reference Range Interpretation Comments Prealbumin (test code = Prealbumin) 32.3 18.0-45.0 [facility] CampusZstwpsaZWLEPHMZDI9127-20-56 11:26:00 Test Item Value Reference Range Interpretation Comments C-REACTIVE PROTEIN (test code = 5.9 C-REACTIVE PROTEIN) [facility]kaxtkbHHHQRBDKHA0041-01-94 11:26:00 Test Item Value Reference Range Interpretation Comments Prealbumin (test code = Prealbumin) 32.3 18.0-45.0 [facility]2016-12-18 16:47:00 Test Item Value Reference Range Interpretation Comments eGFR (test code = eGFR) 103 [facility]2016-12-18 16:47:00 Test Item Value Reference Range Interpretation Comments Sodium Lvl (test code = Sodium Lvl) 138 135-145 [facility]2016-12-18 16:47:00 Test Item Value Reference Range Interpretation Comments Chloride Lvl (test code = Chloride Lvl) 101 95-109 [facility]2016-12-18 16:47:00 Test Item Value Reference Range Interpretation Comments Potassium Lvl (test code = Potassium 4.6 3.5-5.1 Lvl) [facility]2016-12-18 16:47:00 Test Item Value Reference Range Interpretation Comments Creatinine Lvl (test code = Creatinine 0.53 0.50-1.40 Lvl) [facility]2016-12-18 16:47:00 Test Item Value Reference Range Interpretation Comments BUN (test code = BUN) 17 7-22 [facility]2016-12-18 16:47:00 Test Item Value Reference Range Interpretation Comments Calcium Lvl (test code = Calcium Lvl) 8.8 8.5-10.5 [facility]2016-12-18 16:47:00 Test Item Value Reference Range Interpretation Comments CO2 (test code = CO2) 26 24-32 [facility]2016-12-18 16:47:00 Test Item Value Reference Range Interpretation Comments Glucose Lvl (test code = Glucose Lvl) 197 70-99 [facility]2016-12-18 16:47:00 Test Item Value Reference Range Interpretation Comments AGAP (test code = AGAP) 15.6 10.0-20.[address] [facility] CenterGjmmpocCBGASDBLUX8637-25-10 16:47:00 Test Item Value Reference Range Interpretation Comments WBC (test code = WBC) 7.8 3.7-10.[address] [facility] CenterPxmvrkoXNZTGKODDV9707-41-32 16:47:00 Test Item Value Reference Range Interpretation Comments Platelet (test code = Platelet) 334 133-[address] [facility] CenterUoqflvoKEHTTWFXKY7099-82-79 16:47:00 Test Item Value Reference Range Interpretation Comments MCHC (test code = MCHC) 31.9 32.0-36.[address] [facility] CenterJvbmwbbRIHYKPFGJR3600-17-94 16:47:00 Test Item Value Reference Range Interpretation Comments RDW (test code = RDW) 18.6 11.5-14.[address] [facility] CenterDxgmttvLIKMCVNKHC2281-73-16 16:47:00 Test Item Value Reference Range Interpretation Comments MPV (test code = MPV) 7.8 7.4-10.[address] [facility] CenterNugckgwBHOTXAVHGW3605-40-65 16:47:00 Test Item Value Reference Range Interpretation Comments Hct (test code = Hct) 31.2 36.0-48.[address] [facility] CenterMairqofKCDIWHXXWK1163-96-74 16:47:00 Test Item Value Reference Range Interpretation Comments MCH (test code = MCH) 29.7 pg 27.0-31.[address] [facility] CenterMlebacqYFYDXUVNYP3721-53-09 16:47:00 Test Item Value Reference Range Interpretation Comments RBC (test code = RBC) 3.34 4.20-5.[address] [facility] CenterRcqutdkUREFEXFONC2959-37-77 16:47:00 Test Item Value Reference Range Interpretation Comments Hgb (test code = Hgb) 9.9 12.0-16.[address] [facility] CenterJjkooiyBPMGQZLYPX7274-89-40 16:47:00 Test Item Value Reference Range Interpretation Comments MCV (test code = MCV) 93.2 80.0-98.[address] [facility] CenterZcomiwxOCAWUPGNAI6334-31-52 16:47:00 Test Item Value Reference Range Interpretation Comments Lymphocytes # (test code = Lymphocytes 1.9 1.0-5.5 #) [facility] CenterWusyuyfXINAGCJMYD8605-01-62 16:47:00 Test Item Value Reference Range Interpretation Comments Eosinophils # (test code 0.2 See_Comment [A utomated message] The = Eosinophils #) system whic h generated this result tra nsmitted reference range : <=0.5. The reference r ronaldo was not used to int erpret this result as normal/abnormal . [facility] CenterWcwfkonFRARXJGPSC1145-72-49 16:47:00 Test Item Value Reference Range Interpretation Comments Monocytes # (test code 0.5 See_Comment [Aut omated message] The = Monocytes #) system which generated this result tra nsmitted reference range : <=0.8. The reference r ronaldo was not used to int erpret this result as normal/abnormal . [facility] CenterKbiodlhQYYEZPFOTK6920-15-66 16:47:00 Test Item Value Reference Range Interpretation Comments Segs-Bands # (test code = Segs-Bands #) 5.2 1.5-8.[address] [facility] CenterTwtdzgtACWXVRYINQ7660-95-89 16:47:00 Test Item Value Reference Range Interpretation Comments Monocytes (test code = Monocytes) 6.9 2.0-12.[address] [facility] CenterWhvozjgYJQLVDYTQD2019-91-93 16:47:00 Test Item Value Reference Range Interpretation Comments Lymphocytes (test code = Lymphocytes) 24.0 20.0-40.[address] [facility] CenterZrhjjolBHMMERFZYE4218-97-30 16:47:00 Test Item Value Reference Range Interpretation Comments Basophils (test code = 0.4 See_Comment [Aut omated message] The Basophils) system which ge nerated this result tra nsmitted reference range : <=1.0. The reference r ronaldo was not used to int erpret this result as normal/abnormal . [facility] CenterArkjshxNVBUPOYGDQ8431-80-43 16:47:00 Test Item Value Reference Range Interpretation Comments Eosinophils (test code = 2.2 See_Comment [A utomated message] The Eosinophils) system which ge nerated this result tra nsmitted reference range : <=4.0. The reference r ronaldo was not used to int erpret this result as normal/abnormal . [facility] CenterXzinfyeODUTNZRWDK2731-43-38 16:47:00 Test Item Value Reference Range Interpretation Comments Segs (test code = Segs) 66.5 45.0-75.[address] [facility] CenterAocbzvgPMYMFEUZFB1690-55-61 16:47:00 Test Item Value Reference Range Interpretation Comments MCV (test code = MCV) 93.2 80.0-98.[address] [facility] CenterBwimrlhZVUEIUWZJI9115-44-83 16:47:00 Test Item Value Reference Range Interpretation Comments Lymphocytes # (test code = Lymphocytes 1.9 1.0-5.5 #) [facility] CenterVcdnmwoRXODIZGIQA4433-76-10 16:47:00 Test Item Value Reference Range Interpretation Comments Eosinophils # (test code 0.2 See_Comment [A utomated message] The = Eosinophils #) system ic h generated this result tra nsmitted reference range : <=0.5. The reference r ronaldo was not used to int erpret this result as normal/abnormal . [facility] CenterEoftgnqFKWQXORFWS1093-68-93 16:47:00 Test Item Value Reference Range Interpretation Comments Monocytes # (test code 0.5 See_Comment [Aut omated message] The = Monocytes #) system which generated this result tra nsmitted reference range : <=0.8. The reference r ronaldo was not used to int erpret this result as normal/abnormal . [facility] CenterTvxdyvyWCKCDMFDHX6922-30-56 16:47:00 Test Item Value Reference Range Interpretation Comments Segs-Bands # (test code = Segs-Bands #) 5.2 1.5-8.[address] [facility] CenterPxewbupEPEQEEOTWQ0094-80-98 16:47:00 Test Item Value Reference Range Interpretation Comments Monocytes (test code = Monocytes) 6.9 2.0-12.[address] [facility] CenterPnutnlzDKSXCQQOTL2049-32-58 16:47:00 Test Item Value Reference Range Interpretation Comments Lymphocytes (test code = Lymphocytes) 24.0 20.0-40.[address] [facility] CenterDbuhayvLDVMABXBWD5089-57-62 16:47:00 Test Item Value Reference Range Interpretation Comments Basophils (test code = 0.4 See_Comment [Aut omated message] The Basophils) system which ge nerated this result tra nsmitted reference range : <=1.0. The reference r ronaldo was not used to int erpret this result as normal/abnormal . [facility] CenterSjnurmiWRTSSQAHFK9129-45-41 16:47:00 Test Item Value Reference Range Interpretation Comments Eosinophils (test code = 2.2 See_Comment [A utomated message] The Eosinophils) system which ge nerated this result tra nsmitted reference range : <=4.0. The reference r ronaldo was not used to int erpret this result as normal/abnormal . [facility] CenterAspundfYYQOJUSRKO0651-95-17 16:47:00 Test Item Value Reference Range Interpretation Comments Segs (test code = Segs) 66.5 45.0-75.0 [facility]2016-12-18 16:47:00 Test Item Value Reference Range Interpretation Comments eGFR (test code = eGFR) 103 [facility]2016-12-18 16:47:00 Test Item Value Reference Range Interpretation Comments Sodium Lvl (test code = Sodium Lvl) 138 135-145 [facility]2016-12-18 16:47:00 Test Item Value Reference Range Interpretation Comments Chloride Lvl (test code = Chloride Lvl) 101 95-109 [facility]2016-12-18 16:47:00 Test Item Value Reference Range Interpretation Comments Potassium Lvl (test code = Potassium 4.6 3.5-5.1 Lvl) [facility]2016-12-18 16:47:00 Test Item Value Reference Range Interpretation Comments Creatinine Lvl (test code = Creatinine 0.53 0.50-1.40 Lvl) [facility]2016-12-18 16:47:00 Test Item Value Reference Range Interpretation Comments BUN (test code = BUN) 17 7-22 [facility]2016-12-18 16:47:00 Test Item Value Reference Range Interpretation Comments Calcium Lvl (test code = Calcium Lvl) 8.8 8.5-10.5 [facility]2016-12-18 16:47:00 Test Item Value Reference Range Interpretation Comments CO2 (test code = CO2) 26 24-32 [facility]2016-12-18 16:47:00 Test Item Value Reference Range Interpretation Comments Glucose Lvl (test code = Glucose Lvl) 197 70-99 [facility]2016-12-18 16:47:00 Test Item Value Reference Range Interpretation Comments AGAP (test code = AGAP) 15.6 10.0-20.[address] [facility] CenterSktunhkXGFYIZOYNO4886-76-86 16:47:00 Test Item Value Reference Range Interpretation Comments WBC (test code = WBC) 7.8 3.7-10.[address] [facility] CenterArovsmlQYWYQHGCCE7684-35-54 16:47:00 Test Item Value Reference Range Interpretation Comments Platelet (test code = Platelet) 334 133-[address] [facility] CenterTwbzqnzLRQZJMRZZA1386-63-48 16:47:00 Test Item Value Reference Range Interpretation Comments MCHC (test code = MCHC) 31.9 32.0-36.[address] [facility] CenterGwwmvqrWDAAXQTZTI1445-21-24 16:47:00 Test Item Value Reference Range Interpretation Comments RDW (test code = RDW) 18.6 11.5-14.[address] [facility] CenterPhbtwawMMOOSKDPJE7418-82-19 16:47:00 Test Item Value Reference Range Interpretation Comments MPV (test code = MPV) 7.8 7.4-10.4 [place] 619646-12-18 16:47:00 Test Item Value Reference Range Interpretation Comments Hct (test code = Hct) 31.2 36.0-48.0 [place] 619646-12-18 16:47:00 Test Item Value Reference Range Interpretation Comments MCH (test code = MCH) 29.7 pg 27.0-31.0 [place] 619646-12-18 16:47:00 Test Item Value Reference Range Interpretation Comments RBC (test code = RBC) 3.34 4.20-5.40 [place] 619646-12-18 16:47:00 Test Item Value Reference Range Interpretation Comments Hgb (test code = Hgb) 9.9 12.0-16.0 [place] 619646-12-18 16:47:00 Test Item Value Reference Range Interpretation Comments MCV (test code = MCV) 93.2 80.0-98.[address] [facility] CenterBzatbtlCACKMMYYSB8296-34-68 16:47:00 Test Item Value Reference Range Interpretation Comments Lymphocytes # (test code = Lymphocytes 1.9 1.0-5.5 #) [facility] CenterLavznjyMDSRCXDXWC7563-56-56 16:47:00 Test Item Value Reference Range Interpretation Comments Eosinophils # (test code 0.2 See_Comment [A utomated message] The = Eosinophils #) system whic h generated this result tra nsmitted reference range : <=0.5. The reference r ronaldo was not used to int erpret this result as normal/abnormal . [facility] CenterYzvetktGMMMAZMGUM5140-52-93 16:47:00 Test Item Value Reference Range Interpretation Comments Monocytes # (test code 0.5 See_Comment [Aut omated message] The = Monocytes #) system which generated this result tra nsmitted reference range : <=0.8. The reference r ronaldo was not used to int erpret this result as normal/abnormal . [place] 619646-12-18 16:47:00 Test Item Value Reference Range Interpretation Comments Segs-Bands # (test code = Segs-Bands #) 5.2 1.5-8.[address] [facility] CenterKjkjwzvOSTZNEPOVG4839-72-48 16:47:00 Test Item Value Reference Range Interpretation Comments Monocytes (test code = Monocytes) 6.9 2.0-12.[address] [facility] CenterEbgmybgOXRGAKTREG8204-31-11 16:47:00 Test Item Value Reference Range Interpretation Comments Lymphocytes (test code = Lymphocytes) 24.0 20.0-40.[address] [facility] CenterVpoizxyRRTIXFWWTP7386-58-35 16:47:00 Test Item Value Reference Range Interpretation Comments Basophils (test code = 0.4 See_Comment [Aut omated message] The Basophils) system which ge nerated this result tra nsmitted reference range : <=1.0. The reference r ronaldo was not used to int erpret this result as normal/abnormal . [facility] CenterTrmqzllAODJLRWTGG9778-48-17 16:47:00 Test Item Value Reference Range Interpretation Comments Eosinophils (test code = 2.2 See_Comment [A utomated message] The Eosinophils) system which ge nerated this result tra nsmitted reference range : <=4.0. The reference r ronaldo was not used to int erpret this result as normal/abnormal . [facility] CenterBsamojkRHWBZOECOO1814-58-38 16:47:00 Test Item Value Reference Range Interpretation Comments Segs (test code = Segs) 66.5 45.0-75.0 [facility]2016-12-18 16:47:00 Test Item Value Reference Range Interpretation Comments eGFR (test code = eGFR) 103 [facility]2016-12-18 16:47:00 Test Item Value Reference Range Interpretation Comments Sodium Lvl (test code = Sodium Lvl) 138 135-145 [facility]2016-12-18 16:47:00 Test Item Value Reference Range Interpretation Comments Chloride Lvl (test code = Chloride Lvl) 101 95-109 [facility]2016-12-18 16:47:00 Test Item Value Reference Range Interpretation Comments Potassium Lvl (test code = Potassium 4.6 3.5-5.1 Lvl) [facility]2016-12-18 16:47:00 Test Item Value Reference Range Interpretation Comments Creatinine Lvl (test code = Creatinine 0.53 0.50-1.40 Lvl) [place] 062746-12-18 16:47:00 Test Item Value Reference Range Interpretation Comments BUN (test code = BUN) 17 7-22 [facility]2016-12-18 16:47:00 Test Item Value Reference Range Interpretation Comments Calcium Lvl (test code = Calcium Lvl) 8.8 8.5-10.5 [facility]2016-12-18 16:47:00 Test Item Value Reference Range Interpretation Comments CO2 (test code = CO2) 26 24-32 [facility]2016-12-18 16:47:00 Test Item Value Reference Range Interpretation Comments Glucose Lvl (test code = Glucose Lvl) 197 70-99 [facility]2016-12-18 16:47:00 Test Item Value Reference Range Interpretation Comments AGAP (test code = AGAP) 15.6 10.0-20.[address] [facility] CenterGvcoveoXWRXHQEFYY7880-25-49 16:47:00 Test Item Value Reference Range Interpretation Comments WBC (test code = WBC) 7.8 3.7-10.[address] [facility] CenterEljjsvxOTWNZODSTN3313-01-12 16:47:00 Test Item Value Reference Range Interpretation Comments Platelet (test code = Platelet) 334 133-[address] [facility] CenterPnikoefZKKZACCVZY5542-56-18 16:47:00 Test Item Value Reference Range Interpretation Comments MCHC (test code = MCHC) 31.9 32.0-36.[address] [facility] CenterAnvqgsoPAHRKWVXBZ3640-45-18 16:47:00 Test Item Value Reference Range Interpretation Comments RDW (test code = RDW) 18.6 11.5-14.[address] [facility] CenterNdmfujkFAVFKOLUTK0890-75-85 16:47:00 Test Item Value Reference Range Interpretation Comments MPV (test code = MPV) 7.8 7.4-10.[address] [facility] CenterFtshhjmCOBVYVDNWG7206-28-04 16:47:00 Test Item Value Reference Range Interpretation Comments Hct (test code = Hct) 31.2 36.0-48.[address] [facility] CenterMgegihyNXNTDKXTXJ4488-68-75 16:47:00 Test Item Value Reference Range Interpretation Comments MCH (test code = MCH) 29.7 pg 27.0-31.[address] [facility] CenterSpznqoyAMCGLIHFWS6917-85-93 16:47:00 Test Item Value Reference Range Interpretation Comments RBC (test code = RBC) 3.34 4.20-5.[address] [facility] CenterTixoyvkMBUJSEWWBR5136-50-26 16:47:00 Test Item Value Reference Range Interpretation Comments Hgb (test code = Hgb) 9.9 12.0-16.[address] [facility] CenterBrlaqwuEVNLVJVUGY6283-37-21 16:47:00 Test Item Value Reference Range Interpretation Comments MCV (test code = MCV) 93.2 80.0-98.0 [place] 619646-12-18 16:47:00 Test Item Value Reference Range Interpretation Comments Lymphocytes # (test code = Lymphocytes 1.9 1.0-5.5 #) [facility] CenterKugyqryCOBIPMDFFN7738-54-91 16:47:00 Test Item Value Reference Range Interpretation Comments Eosinophils # (test code 0.2 See_Comment [A utomated message] The = Eosinophils #) system whic h generated this result tra nsmitted reference range : <=0.5. The reference r ronaldo was not used to int erpret this result as normal/abnormal . [facility] CenterHkitnnwZFBUTMLAMF9472-57-81 16:47:00 Test Item Value Reference Range Interpretation Comments Monocytes # (test code 0.5 See_Comment [Aut omated message] The = Monocytes #) system which generated this result tra nsmitted reference range : <=0.8. The reference r ronaldo was not used to int erpret this result as normal/abnormal . [facility] CenterHrwivceWHUCHVZUPJ0165-39-66 16:47:00 Test Item Value Reference Range Interpretation Comments Segs-Bands # (test code = Segs-Bands #) 5.2 1.5-8.[address] [facility] CenterZkirizpCYLXDVCIBW6252-80-86 16:47:00 Test Item Value Reference Range Interpretation Comments Monocytes (test code = Monocytes) 6.9 2.0-12.0 [place] [address]-12-18 16:47:00 Test Item Value Reference Range Interpretation Comments Lymphocytes (test code = Lymphocytes) 24.0 20.0-40.0 [place] [id number] 16:47:00 Test Item Value Reference Range Interpretation Comments Basophils (test code = 0.4 See_Comment [Aut omated message] The Basophils) system which ge nerated this result tra nsmitted reference range : <=1.0. The reference r ronaldo was not used to int erpret this result as normal/abnormal . [facility] CenterBdzbiwpJQOMJCTRCN0711-28-08 16:47:00 Test Item Value Reference Range Interpretation Comments Eosinophils (test code = 2.2 See_Comment [A utomated message] The Eosinophils) system which ge nerated this result tra nsmitted reference range : <=4.0. The reference r ronaldo was not used to int erpret this result as normal/abnormal . [facility] CenterUizazhiCFYLLSTUSX0480-99-98 16:47:00 Test Item Value Reference Range Interpretation Comments Segs (test code = Segs) 66.5 45.0-75.0 [facility]2016-12-18 16:47:00 Test Item Value Reference Range Interpretation Comments eGFR (test code = eGFR) 103 [facility]2016-12-18 16:47:00 Test Item Value Reference Range Interpretation Comments Sodium Lvl (test code = Sodium Lvl) 138 135-145 [facility]2016-12-18 16:47:00 Test Item Value Reference Range Interpretation Comments Chloride Lvl (test code = Chloride Lvl) 101 95-109 [facility]2016-12-18 16:47:00 Test Item Value Reference Range Interpretation Comments Potassium Lvl (test code = Potassium 4.6 3.5-5.1 Lvl) [facility]2016-12-18 16:47:00 Test Item Value Reference Range Interpretation Comments Creatinine Lvl (test code = Creatinine 0.53 0.50-1.40 Lvl) [facility]2016-12-18 16:47:00 Test Item Value Reference Range Interpretation Comments BUN (test code = BUN) 17 7-22 [facility]2016-12-18 16:47:00 Test Item Value Reference Range Interpretation Comments Calcium Lvl (test code = Calcium Lvl) 8.8 8.5-10.5 [facility]2016-12-18 16:47:00 Test Item Value Reference Range Interpretation Comments CO2 (test code = CO2) 26 24-32 [facility]2016-12-18 16:47:00 Test Item Value Reference Range Interpretation Comments Glucose Lvl (test code = Glucose Lvl) 197 70-99 [facility]2016-12-18 16:47:00 Test Item Value Reference Range Interpretation Comments AGAP (test code = AGAP) 15.6 10.0-20.[address] [facility] CenterLavgyuwJHMJDMJIUE2787-72-47 16:47:00 Test Item Value Reference Range Interpretation Comments WBC (test code = WBC) 7.8 3.7-10.[address] [facility] CenterSemxcuxOJTZTSCFOM2018-77-03 16:47:00 Test Item Value Reference Range Interpretation Comments Platelet (test code = Platelet) 334 133-[address] [facility] CenterJlsjsweDOTBZNGFPX6450-99-05 16:47:00 Test Item Value Reference Range Interpretation Comments MCHC (test code = MCHC) 31.9 32.0-36.[address] [facility] CenterYuvnknwYNATHHINGY3163-92-93 16:47:00 Test Item Value Reference Range Interpretation Comments RDW (test code = RDW) 18.6 11.5-14.[address] [facility] CenterIideuipBPCVMDCKOL8983-43-91 16:47:00 Test Item Value Reference Range Interpretation Comments MPV (test code = MPV) 7.8 7.4-10.[address] [facility] CenterPwphkitIROLKYYMTK2947-61-32 16:47:00 Test Item Value Reference Range Interpretation Comments Hct (test code = Hct) 31.2 36.0-48.[address] [facility] CenterSfxhphyONENERKOFW8569-52-10 16:47:00 Test Item Value Reference Range Interpretation Comments MCH (test code = MCH) 29.7 pg 27.0-31.[address] [facility] CenterPissnepWOKGCBRWPF5602-87-07 16:47:00 Test Item Value Reference Range Interpretation Comments RBC (test code = RBC) 3.34 4.20-5.[address] [facility] CenterAjagpkrMLFFSQOLET2603-20-54 16:47:00 Test Item Value Reference Range Interpretation Comments Hgb (test code = Hgb) 9.9 12.0-16.[address] [facility] CenterAfsnhueDYRMDDPSKA4522-61-67 19:45:00 Test Item Value Reference Range Interpretation Comments Bands (test code = 3.0 See_Comment [Automat ed message] The Bands) system which ge nerated this result transmit galina reference range : <=11.0. The reference r ronaldo was not used to interpr et this result as karrie l/abnormal. [facility] CenterDckdpsuHHWKKXXQZE0750-95-57 19:45:00 Test Item Value Reference Range Interpretation Comments Monocytes (test code = Monocytes) 7.0 2.0-12.[address] [facility] CenterBjqfuxiBEYAOEDEQG1868-11-42 19:45:00 Test Item Value Reference Range Interpretation Comments Lymphocytes (test code = Lymphocytes) 13.0 20.0-40.[address] [facility] CenterCyuygbpZKBTLTMOZY1692-41-83 19:45:00 Test Item Value Reference Range Interpretation Comments Metamyelocytes (test code 1.0 See_Comment [ Automated message] = Metamyelocytes) The system which generated this result transmitted ref erence range: <=1.0. T he reference range was not used to int erpret this result as normal/abnormal . [facility] CenterZiqqzrlZEYNJYCDHF5444-12-91 19:45:00 Test Item Value Reference Range Interpretation Comments Eosinophils (test code = 3.0 See_Comment [A utomated message] The Eosinophils) system which ge nerated this result tra nsmitted reference range : <=4.0. The reference r ronaldo was not used to int erpret this result as normal/abnormal . [facility] CenterTjdmektNSZBUKTTMV7989-63-01 19:45:00 Test Item Value Reference Range Interpretation Comments Eosinophils # (test code 0.2 See_Comment [A utomated message] The = Eosinophils #) system whic h generated this result tra nsmitted reference range : <=0.5. The reference r ronaldo was not used to int erpret this result as normal/abnormal . [facility] CenterRhklxjhVDKSRSFLXI5745-10-18 19:45:00 Test Item Value Reference Range Interpretation Comments Segs (test code = Segs) 73.0 45.0-75.[address] [facility] CenterXifnfinDAAHYWGHPL8155-31-69 19:45:00 Test Item Value Reference Range Interpretation Comments Monocytes # (test code 0.5 See_Comment [Aut omated message] The = Monocytes #) system which generated this result tra nsmitted reference range : <=0.8. The reference r ronaldo was not used to int erpret this result as normal/abnormal . [facility] CenterZxkztldFPSIHNRANL0122-57-62 19:45:00 Test Item Value Reference Range Interpretation Comments Atypical Lymphs (test code = Atypical 0.0 Lymphs) [facility] CenterXpwrsgsBGMQIRVTMI0884-36-16 19:45:00 Test Item Value Reference Range Interpretation Comments Lymphocytes # (test code = Lymphocytes 0.9 1.0-5.5 #) [facility] CenterVhhnnccIQFZNVJFED8012-99-29 19:45:00 Test Item Value Reference Range Interpretation Comments Segs-Bands # (test code = Segs-Bands #) 5.5 1.5-8.[address] [facility] CenterMzqdzgaTXHTIDQTCE7011-26-89 19:45:00 Test Item Value Reference Range Interpretation Comments MPV (test code = MPV) 7.7 7.4-10.4 [place] [id number] 19:45:00 Test Item Value Reference Range Interpretation Comments Platelet (test code = Platelet) 335 133-[address] [facility] CenterXyijnqkVGGDIGQSZF3133-08-61 19:45:00 Test Item Value Reference Range Interpretation Comments MCH (test code = MCH) 29.6 pg 27.0-31.[address] [facility] CenterLetvazeFSGVGOJBKI1271-63-13 19:45:00 Test Item Value Reference Range Interpretation Comments MCHC (test code = MCHC) 31.6 32.0-36.[address] [facility] CenterFhqdwfsFKOPBODGGM1901-17-15 19:45:00 Test Item Value Reference Range Interpretation Comments RDW (test code = RDW) 18.4 11.5-14.5 [place] 619646-12-17 19:45:00 Test Item Value Reference Range Interpretation Comments MCV (test code = MCV) 93.9 80.0-98.[address] [facility] CenterTyzmbigOPTSNXKMLJ8929-40-19 19:45:00 Test Item Value Reference Range Interpretation Comments WBC (test code = WBC) 7.3 3.7-10.[address] CenterJguclsxVXXOIEZZEC9339-98-44 19:45:00 Test Item Value Reference Range Interpretation Comments Hct (test code = Hct) 31.2 36.0-48.[address] [facility] CenterYhvlcypJCYUZWCQEZ8304-43-77 19:45:00 Test Item Value Reference Range Interpretation Comments Hgb (test code = Hgb) 9.8 12.0-16.0 [place] [address]-12-17 19:45:00 Test Item Value Reference Range Interpretation Comments RBC (test code = RBC) 3.32 4.20-5.40 [place] [address]-12-17 19:45:00 Test Item Value Reference Range Interpretation Comments Bands (test code = 3.0 See_Comment [Automat ed message] The Bands) system which ge nerated this result transmit galina reference range : <=11.0. The reference r ronaldo was not used to interpr et this result as karrie l/abnormal. [facility] CenterQumxiwkMBBDLUPIKA7220-22-02 19:45:00 Test Item Value Reference Range Interpretation Comments Monocytes (test code = Monocytes) 7.0 2.0-12.[address] [facility] CenterQxobvpuXNQQHSTPSE8936-60-46 19:45:00 Test Item Value Reference Range Interpretation Comments Lymphocytes (test code = Lymphocytes) 13.0 20.0-40.[address] [facility] CenterIzmcoccRLRPEBWIQR3456-67-71 19:45:00 Test Item Value Reference Range Interpretation Comments Metamyelocytes (test code 1.0 See_Comment [ Automated message] = Metamyelocytes) The system which generated this result transmitted ref erence range: <=1.0. T he reference range was not used to int erpret this result as normal/abnormal . [facility] CenterYphhiyaBMOKAIHHWT2907-69-37 19:45:00 Test Item Value Reference Range Interpretation Comments Eosinophils (test code = 3.0 See_Comment [A utomated message] The Eosinophils) system which ge nerated this result tra nsmitted reference range : <=4.0. The reference r ronaldo was not used to int erpret this result as normal/abnormal . [facility] CenterHfqoqxeYNRSBBZOSC7406-37-99 19:45:00 Test Item Value Reference Range Interpretation Comments Eosinophils # (test code 0.2 See_Comment [A utomated message] The = Eosinophils #) system whic h generated this result tra nsmitted reference range : <=0.5. The reference r ronaldo was not used to int erpret this result as normal/abnormal . [facility] CenterOdepkrcLZUYINPIQQ0220-66-12 19:45:00 Test Item Value Reference Range Interpretation Comments Segs (test code = Segs) 73.0 45.0-75.[address] [facility] CenterPgqpbjxZOBHIAIZQZ2787-66-04 19:45:00 Test Item Value Reference Range Interpretation Comments Monocytes # (test code 0.5 See_Comment [Aut omated message] The = Monocytes #) system which generated this result tra nsmitted reference range : <=0.8. The reference r ronaldo was not used to int erpret this result as normal/abnormal . [facility] CenterFcensauHQUAHZGMSX3424-37-94 19:45:00 Test Item Value Reference Range Interpretation Comments Atypical Lymphs (test code = Atypical 0.0 Lymphs) [facility] CenterPiorzmrWTQFYEYEHG3948-45-85 19:45:00 Test Item Value Reference Range Interpretation Comments Lymphocytes # (test code = Lymphocytes 0.9 1.0-5.5 #) [facility] CenterBjqghvgMDTTBXBUMT7987-63-53 19:45:00 Test Item Value Reference Range Interpretation Comments Segs-Bands # (test code = Segs-Bands #) 5.5 1.5-8.[address] [facility] CenterQerwxuxGVJEKZVRJT7086-18-03 19:45:00 Test Item Value Reference Range Interpretation Comments MPV (test code = MPV) 7.7 7.4-10.[address] [facility] CenterNmklmfoVNJFBYASQR8437-51-06 19:45:00 Test Item Value Reference Range Interpretation Comments Platelet (test code = Platelet) 335 133-[address] [facility] CenterSpqdslqHORXNDLZQK1203-30-43 19:45:00 Test Item Value Reference Range Interpretation Comments MCH (test code = MCH) 29.6 pg 27.0-31.[address] [facility] CenterYzbqxrdKKUMIKWQTT6615-30-71 19:45:00 Test Item Value Reference Range Interpretation Comments MCHC (test code = MCHC) 31.6 32.0-36.[address] [facility] CenterNeznxdhGKNBFNCBWS5650-37-57 19:45:00 Test Item Value Reference Range Interpretation Comments RDW (test code = RDW) 18.4 11.5-14.5 [place] [address]-12-17 19:45:00 Test Item Value Reference Range Interpretation Comments MCV (test code = MCV) 93.9 80.0-98.[address] [facility] CenterKsxkuesVCCRZEGBNM5196-90-48 19:45:00 Test Item Value Reference Range Interpretation Comments WBC (test code = WBC) 7.3 3.7-10.[address] [facility] CenterTciltabMEQCFBJZUD9443-46-34 19:45:00 Test Item Value Reference Range Interpretation Comments Hct (test code = Hct) 31.2 36.0-48.0 [place] [address]-12-17 19:45:00 Test Item Value Reference Range Interpretation Comments Hgb (test code = Hgb) 9.8 12.0-16.0 [place] 619646-12-17 19:45:00 Test Item Value Reference Range Interpretation Comments RBC (test code = RBC) 3.32 4.20-5.[address] [facility] CenterWxitzymNCOUBLFTJT0917-35-97 19:45:00 Test Item Value Reference Range Interpretation Comments Bands (test code = 3.0 See_Comment [Automat ed message] The Bands) system which ge nerated this result transmit galina reference range : <=11.0. The reference r ronaldo was not used to interpr et this result as karrie l/abnormal. [facility] CenterCfdnzgxYFQHTOBUCY2830-27-09 19:45:00 Test Item Value Reference Range Interpretation Comments Monocytes (test code = Monocytes) 7.0 2.0-12.[address] [facility] CenterUedyfapWYYCPKVOAB9086-97-65 19:45:00 Test Item Value Reference Range Interpretation Comments Lymphocytes (test code = Lymphocytes) 13.0 20.0-40.[address] [facility] CenterMbznnjkUEIRGEAHTK3545-28-68 19:45:00 Test Item Value Reference Range Interpretation Comments Metamyelocytes (test code 1.0 See_Comment [ Automated message] = Metamyelocytes) The system which generated this result transmitted ref erence range: <=1.0. T he reference range was not used to int erpret this result as normal/abnormal . [facility] CenterFajxteyZFYDJEWVHU8942-44-67 19:45:00 Test Item Value Reference Range Interpretation Comments Eosinophils (test code = 3.0 See_Comment [A utomated message] The Eosinophils) system which ge nerated this result tra nsmitted reference range : <=4.0. The reference r ronaldo was not used to int erpret this result as normal/abnormal . [facility] CenterEozfjffBFOWROFSKN1015-65-62 19:45:00 Test Item Value Reference Range Interpretation Comments Eosinophils # (test code 0.2 See_Comment [A utomated message] The = Eosinophils #) system whic h generated this result tra nsmitted reference range : <=0.5. The reference r ronaldo was not used to int erpret this result as normal/abnormal . [facility] CenterOlncdtyLSASPAEKHM2236-54-62 19:45:00 Test Item Value Reference Range Interpretation Comments Segs (test code = Segs) 73.0 45.0-75.[address] [facility] CenterUttfnuuYUNLWCKQHN2139-59-90 19:45:00 Test Item Value Reference Range Interpretation Comments Monocytes # (test code 0.5 See_Comment [Aut omated message] The = Monocytes #) system which generated this result tra nsmitted reference range : <=0.8. The reference r ronaldo was not used to int erpret this result as normal/abnormal . [facility] CenterVacvbeiMPGNOIWMXJ3640-67-91 19:45:00 Test Item Value Reference Range Interpretation Comments Atypical Lymphs (test code = Atypical 0.0 Lymphs) [facility] CenterOfvaxpbHKUFQRTYXD8022-78-84 19:45:00 Test Item Value Reference Range Interpretation Comments Lymphocytes # (test code = Lymphocytes 0.9 1.0-5.5 #) [facility] CenterVhohbvzUDHUZVJEPD5858-48-79 19:45:00 Test Item Value Reference Range Interpretation Comments Segs-Bands # (test code = Segs-Bands #) 5.5 1.5-8.[address] [facility] CenterQdrtyjmVKLHFCCCDL5314-91-00 19:45:00 Test Item Value Reference Range Interpretation Comments MPV (test code = MPV) 7.7 7.4-10.[address] [facility] CenterQiufjaySPXOLHDTTD9377-52-47 19:45:00 Test Item Value Reference Range Interpretation Comments Platelet (test code = Platelet) 335 133-[address] [facility] CenterTdvxidjQUMKREYQPZ9964-83-80 19:45:00 Test Item Value Reference Range Interpretation Comments MCH (test code = MCH) 29.6 pg 27.0-31.[address] [facility] CenterUgjqjaeNEOBMLKUXV5264-34-59 19:45:00 Test Item Value Reference Range Interpretation Comments MCHC (test code = MCHC) 31.6 32.0-36.[address] [facility] CenterVvdlcpwFPOOTFZZJY9832-60-61 19:45:00 Test Item Value Reference Range Interpretation Comments RDW (test code = RDW) 18.4 11.5-14.[address] [facility] CenterPqrvdknGHMQLBGVJK5915-77-87 19:45:00 Test Item Value Reference Range Interpretation Comments MCV (test code = MCV) 93.9 80.0-98.[address] [facility] CenterUrgbbjoOHEZMRLAUF2367-97-87 19:45:00 Test Item Value Reference Range Interpretation Comments WBC (test code = WBC) 7.3 3.7-10.4 [place] 619646-12-17 19:45:00 Test Item Value Reference Range Interpretation Comments Hct (test code = Hct) 31.2 36.0-48.[address] [facility] CenterOpfchieTNGSWRYTTX5792-13-72 19:45:00 Test Item Value Reference Range Interpretation Comments Hgb (test code = Hgb) 9.8 12.0-16.[address] [facility] CenterLapfquiUFHJVGHTCD5377-38-97 19:45:00 Test Item Value Reference Range Interpretation Comments RBC (test code = RBC) 3.32 4.20-5.[address] [facility] CenterIvxrqaiEUTXDMKGDS5848-18-58 19:45:00 Test Item Value Reference Range Interpretation Comments Bands (test code = 3.0 See_Comment [Automat ed message] The Bands) system which ge nerated this result transmit galina reference range : <=11.0. The reference r ronaldo was not used to interpr et this result as karrie l/abnormal. [facility] CenterRkscxcnFZWELMXOXJ8876-08-03 19:45:00 Test Item Value Reference Range Interpretation Comments Monocytes (test code = Monocytes) 7.0 2.0-12.[address] [facility] CenterUgrdrseOCIQCKKIGB0720-46-44 19:45:00 Test Item Value Reference Range Interpretation Comments Lymphocytes (test code = Lymphocytes) 13.0 20.0-40.[address] CenterFrzaqfsRUYGCNRMUU1547-54-75 19:45:00 Test Item Value Reference Range Interpretation Comments Metamyelocytes (test code 1.0 See_Comment [ Automated message] = Metamyelocytes) The system which generated this result transmitted ref erence range: <=1.0. T he reference range was not used to int erpret this result as normal/abnormal . [facility] CenterUcbwhjqQYYADCGRSB2818-80-91 19:45:00 Test Item Value Reference Range Interpretation Comments Eosinophils (test code = 3.0 See_Comment [A utomated message] The Eosinophils) system which ge nerated this result tra nsmitted reference range : <=4.0. The reference r ronaldo was not used to int erpret this result as normal/abnormal . [facility] CenterNnpntszEICCKILXLH4524-09-29 19:45:00 Test Item Value Reference Range Interpretation Comments Eosinophils # (test code 0.2 See_Comment [A utomated message] The = Eosinophils #) system whic h generated this result tra nsmitted reference range : <=0.5. The reference r ronaldo was not used to int erpret this result as normal/abnormal . [facility] CenterOfuqkfaTABWHEAIEL7706-77-73 19:45:00 Test Item Value Reference Range Interpretation Comments Segs (test code = Segs) 73.0 45.0-75.[address] [facility] CenterSjazafkWLWULTUYJV5570-64-75 19:45:00 Test Item Value Reference Range Interpretation Comments Monocytes # (test code 0.5 See_Comment [Aut omated message] The = Monocytes #) system which generated this result tra nsmitted reference range : <=0.8. The reference r ronaldo was not used to int erpret this result as normal/abnormal . [facility] CenterHbndbacEPKMKGBFHI6369-58-79 19:45:00 Test Item Value Reference Range Interpretation Comments Atypical Lymphs (test code = Atypical 0.0 Lymphs) [facility] CenterZtrejfnGXMUWXUUJH2085-02-63 19:45:00 Test Item Value Reference Range Interpretation Comments Lymphocytes # (test code = Lymphocytes 0.9 1.0-5.5 #) [facility] CenterCpmvalzOUJNBBNKFW3568-06-04 19:45:00 Test Item Value Reference Range Interpretation Comments Segs-Bands # (test code = Segs-Bands #) 5.5 1.5-8.[address] [facility] CenterWmopvrzGCXGZDHBZQ6212-88-41 19:45:00 Test Item Value Reference Range Interpretation Comments MPV (test code = MPV) 7.7 7.4-10.[address] [facility] CenterUgrnpqoPDDRXJZCVI1906-12-79 19:45:00 Test Item Value Reference Range Interpretation Comments Platelet (test code = Platelet) 335 133-[address] [facility] CenterOckicrjOBUMBSIBWX6426-26-07 19:45:00 Test Item Value Reference Range Interpretation Comments MCH (test code = MCH) 29.6 pg 27.0-31.[address] [facility] CenterAvbsfqjTMYNPLFKQE4758-46-00 19:45:00 Test Item Value Reference Range Interpretation Comments MCHC (test code = MCHC) 31.6 32.0-36.[address] [facility] CenterWekcfjlHXXFGBWVSX4326-38-67 19:45:00 Test Item Value Reference Range Interpretation Comments RDW (test code = RDW) 18.4 11.5-14.[address] [facility] CenterDawzbinEEPVUBWZQR9472-66-67 19:45:00 Test Item Value Reference Range Interpretation Comments MCV (test code = MCV) 93.9 80.0-98.[address] CenterGdegeskZKIAFSEEVN3822-28-20 19:45:00 Test Item Value Reference Range Interpretation Comments WBC (test code = WBC) 7.3 3.7-10.[address] [facility] CenterEjccmveCNYNQVQWEK8124-97-74 19:45:00 Test Item Value Reference Range Interpretation Comments Hct (test code = Hct) 31.2 36.0-48.[address] [facility] CenterUhvvtvwMQBRYNJTXL6946-57-38 19:45:00 Test Item Value Reference Range Interpretation Comments Hgb (test code = Hgb) 9.8 12.0-16.[address] [facility] CenterNnfzlgkYEWBIQDDGM2802-91-03 19:45:00 Test Item Value Reference Range Interpretation Comments RBC (test code = RBC) 3.32 4.20-5.40 [facility]2016-12-17 11:48:00 Test Item Value Reference Range Interpretation Comments Phosphorus (test code = Phosphorus) 3.9 2.5-4.5 [facility]2016-12-17 11:48:00 Test Item Value Reference Range Interpretation Comments Magnesium Lvl (test code = Magnesium 2.7 1.8-2.4 Lvl) [facility]2016-12-17 11:48:00 Test Item Value Reference Range Interpretation Comments eGFR (test code = eGFR) 108 [facility]2016-12-17 11:48:00 Test Item Value Reference Range Interpretation Comments AGAP (test code = AGAP) 17.2 10.0-20.0 [facility]2016-12-17 11:48:00 Test Item Value Reference Range Interpretation Comments Calcium Lvl (test code = Calcium Lvl) 9.0 8.5-10.5 [facility]2016-12-17 11:48:00 Test Item Value Reference Range Interpretation Comments CO2 (test code = CO2) 22 24-32 [facility]2016-12-17 11:48:00 Test Item Value Reference Range Interpretation Comments Creatinine Lvl (test code = Creatinine 0.46 0.50-1.40 Lvl) [facility] [facility] 11:48:00 Test Item Value Reference Range Interpretation Comments Sodium Lvl (test code = Sodium Lvl) 139 135-145 [facility]2016-12-17 11:48:00 Test Item Value Reference Range Interpretation Comments Chloride Lvl (test code = Chloride Lvl) 105 95-109 [facility]2016-12-17 11:48:00 Test Item Value Reference Range Interpretation Comments Potassium Lvl (test code = Potassium 5.2 3.5-5.1 Lvl) [facility]2016-12-17 11:48:00 Test Item Value Reference Range Interpretation Comments BUN (test code = BUN) 19 7-22 [facility]2016-12-17 11:48:00 Test Item Value Reference Range Interpretation Comments Glucose Lvl (test code = Glucose Lvl) 78 70-99 [facility]2016-12-17 11:48:00 Test Item Value Reference Range Interpretation Comments Phosphorus (test code = Phosphorus) 3.9 2.5-4.5 [facility]2016-12-17 11:48:00 Test Item Value Reference Range Interpretation Comments Magnesium Lvl (test code = Magnesium 2.7 1.8-2.4 Lvl) [facility]2016-12-17 11:48:00 Test Item Value Reference Range Interpretation Comments eGFR (test code = eGFR) 108 [facility]2016-12-17 11:48:00 Test Item Value Reference Range Interpretation Comments AGAP (test code = AGAP) 17.2 10.0-20.0 [facility]2016-12-17 11:48:00 Test Item Value Reference Range Interpretation Comments Calcium Lvl (test code = Calcium Lvl) 9.0 8.5-10.5 [facility]2016-12-17 11:48:00 Test Item Value Reference Range Interpretation Comments CO2 (test code = CO2) 22 24-32 [facility]2016-12-17 11:48:00 Test Item Value Reference Range Interpretation Comments Creatinine Lvl (test code = Creatinine 0.46 0.50-1.40 Lvl) [facility]2016-12-17 11:48:00 Test Item Value Reference Range Interpretation Comments Sodium Lvl (test code = Sodium Lvl) 139 135-145 [facility]2016-12-17 11:48:00 Test Item Value Reference Range Interpretation Comments Chloride Lvl (test code = Chloride Lvl) 105 95-109 [facility]2016-12-17 11:48:00 Test Item Value Reference Range Interpretation Comments Potassium Lvl (test code = Potassium 5.2 3.5-5.1 Lvl) [facility]2016-12-17 11:48:00 Test Item Value Reference Range Interpretation Comments BUN (test code = BUN) 19 7-22 [facility]2016-12-17 11:48:00 Test Item Value Reference Range Interpretation Comments Glucose Lvl (test code = Glucose Lvl) 78 70-99 [facility]2016-12-17 11:48:00 Test Item Value Reference Range Interpretation Comments Phosphorus (test code = Phosphorus) 3.9 2.5-4.5 [facility]2016-12-17 11:48:00 Test Item Value Reference Range Interpretation Comments Magnesium Lvl (test code = Magnesium 2.7 1.8-2.4 Lvl) [facility]2016-12-17 11:48:00 Test Item Value Reference Range Interpretation Comments eGFR (test code = eGFR) 108 [facility]2016-12-17 11:48:00 Test Item Value Reference Range Interpretation Comments AGAP (test code = AGAP) 17.2 10.0-20.0 [facility]2016-12-17 11:48:00 Test Item Value Reference Range Interpretation Comments Calcium Lvl (test code = Calcium Lvl) 9.0 8.5-10.5 [facility]2016-12-17 11:48:00 Test Item Value Reference Range Interpretation Comments CO2 (test code = CO2) 22 24-32 [place] [id number] 11:48:00 Test Item Value Reference Range Interpretation Comments Creatinine Lvl (test code = Creatinine 0.46 0.50-1.40 Lvl) [facility]2016-12-17 11:48:00 Test Item Value Reference Range Interpretation Comments Sodium Lvl (test code = Sodium Lvl) 139 135-145 [facility]2016-12-17 11:48:00 Test Item Value Reference Range Interpretation Comments Chloride Lvl (test code = Chloride Lvl) 105 95-109 [facility]2016-12-17 11:48:00 Test Item Value Reference Range Interpretation Comments Potassium Lvl (test code = Potassium 5.2 3.5-5.1 Lvl) [facility]2016-12-17 11:48:00 Test Item Value Reference Range Interpretation Comments BUN (test code = BUN) 19 7-22 [facility]2016-12-17 11:48:00 Test Item Value Reference Range Interpretation Comments Glucose Lvl (test code = Glucose Lvl) 78 70-99 [facility]2016-12-17 11:48:00 Test Item Value Reference Range Interpretation Comments Phosphorus (test code = Phosphorus) 3.9 2.5-4.5 [facility]2016-12-17 11:48:00 Test Item Value Reference Range Interpretation Comments Magnesium Lvl (test code = Magnesium 2.7 1.8-2.4 Lvl) [facility]2016-12-17 11:48:00 Test Item Value Reference Range Interpretation Comments eGFR (test code = eGFR) 108 [facility]2016-12-17 11:48:00 Test Item Value Reference Range Interpretation Comments AGAP (test code = AGAP) 17.2 10.0-20.0 [facility]2016-12-17 11:48:00 Test Item Value Reference Range Interpretation Comments Calcium Lvl (test code = Calcium Lvl) 9.0 8.5-10.5 [facility]2016-12-17 11:48:00 Test Item Value Reference Range Interpretation Comments CO2 (test code = CO2) - [facility]2016-12-17 11:48:00 Test Item Value Reference Range Interpretation Comments Creatinine Lvl (test code = Creatinine 0.46 0.50-1.40 Lvl) [facility]2016-12-17 11:48:00 Test Item Value Reference Range Interpretation Comments Sodium Lvl (test code = Sodium Lvl) 139 135-145 [facility]2016-12-17 11:48:00 Test Item Value Reference Range Interpretation Comments Chloride Lvl (test code = Chloride Lvl) 105 95-109 [facility]2016-12-17 11:48:00 Test Item Value Reference Range Interpretation Comments Potassium Lvl (test code = Potassium 5.2 3.5-5.1 Lvl) [facility]2016-12-17 11:48:00 Test Item Value Reference Range Interpretation Comments BUN (test code = BUN) 19 - [facility]2016-12-17 11:48:00 Test Item Value Reference Range Interpretation Comments Glucose Lvl (test code = Glucose Lvl) 78 70-[address] [facility] CenterAmoqvguWBHIFECLIE0219-23-81 10:53:00 Test Item Value Reference Range Interpretation Comments Basophils # (test code 0.1 See_Comment [Aut omated message] The = Basophils #) system which generated this result tra nsmitted reference range : <=0.2. The reference r ronaldo was not used to int erpret this result as normal/abnormal . [facility] [id number] 10:53:00 Test Item Value Reference Range Interpretation Comments Macrocyte (test code = 1+ *ABN*(03/10/16 Macrocyte) 4:53 AM) [facility] Cent[id number] 10:53:00 Test Item Value Reference Range Interpretation Comments Basophils (test code = 1.3 See_Comment [Aut omated message] The Basophils) system which ge nerated this result tra nsmitted reference range : <=1.0. The reference r ronaldo was not used to int erpret this result as normal/abnormal . [facility] CenterBdexwtzZSCDFILZHX6955-60-43 10:53:00 Test Item Value Reference Range Interpretation Comments Basophils # (test code 0.1 See_Comment [Aut omated message] The = Basophils #) system which generated this result tra nsmitted reference range : <=0.2. The reference r ronaldo was not used to int erpret this result as normal/abnormal . [facility] CenterVrdhacvZSTESVCIEG9972-38-20 10:53:00 Test Item Value Reference Range Interpretation Comments Macrocyte (test code = 1+ *ABN*(03/10/16 Macrocyte) 4:53 AM) [facility] CenterLutugxtBHGSAHVRAH1835-32-04 10:53:00 Test Item Value Reference Range Interpretation Comments Basophils (test code = 1.3 See_Comment [Aut omated message] The Basophils) system which ge nerated this result tra nsmitted reference range : <=1.0. The reference r ronaldo was not used to int erpret this result as normal/abnormal . [facility] CenterYptyawrEQPYXHDMWB5764-95-42 10:53:00 Test Item Value Reference Range Interpretation Comments Basophils # (test code 0.1 See_Comment [Aut omated message] The = Basophils #) system which generated this result tra nsmitted reference range : <=0.2. The reference r ronaldo was not used to int erpret this result as normal/abnormal . [facility] CenterLosyvqpOUMLYTJGMB1470-16-19 10:53:00 Test Item Value Reference Range Interpretation Comments Macrocyte (test code = 1+ *ABN*(03/10/16 Macrocyte) 4:53 AM) [facility] CenterQlmzbnpJALDKLLVKG7106-72-22 10:53:00 Test Item Value Reference Range Interpretation Comments Basophils (test code = 1.3 See_Comment [Aut omated message] The Basophils) system which ge nerated this result tra nsmitted reference range : <=1.0. The reference r ronaldo was not used to int erpret this result as normal/abnormal . [facility] CenterDunruqhLFNDWTIZVG2217-62-68 10:53:00 Test Item Value Reference Range Interpretation Comments Basophils # (test code 0.1 See_Comment [Aut omated message] The = Basophils #) system which generated this result tra nsmitted reference range : <=0.2. The reference r ronaldo was not used to int erpret this result as normal/abnormal . [facility] CenterMecppzeASCDVKCLRN6336-58-13 10:53:00 Test Item Value Reference Range Interpretation Comments Macrocyte (test code = 1+ *ABN*(03/10/16 Macrocyte) 4:53 AM) [facility] CenterDhewqjfDKWHDTPMIY2028-04-23 10:53:00 Test Item Value Reference Range Interpretation Comments Basophils (test code = 1.3 See_Comment [Aut omated message] The Basophils) system which ge nerated this result tra nsmitted reference range : <=1.0. The reference r ronaldo was not used to int erpret this result as normal/abnormal . [facility]2016-12-15 10:36:00 Test Item Value Reference Range Interpretation Comments Magnesium Lvl (test code = Magnesium 2.9 1.8-2.4 Lvl) [facility]2016-12-15 10:36:00 Test Item Value Reference Range Interpretation Comments Phosphorus (test code = Phosphorus) 3.6 2.5-4.5 [facility]2016-12-15 10:36:00 Test Item Value Reference Range Interpretation Comments Magnesium Lvl (test code = Magnesium 2.9 1.8-2.4 Lvl) [facility]2016-12-15 10:36:00 Test Item Value Reference Range Interpretation Comments Phosphorus (test code = Phosphorus) 3.6 2.5-4.5 [facility]2016-12-15 10:36:00 Test Item Value Reference Range Interpretation Comments Magnesium Lvl (test code = Magnesium 2.9 1.8-2.4 Lvl) [facility]2016-12-15 10:36:00 Test Item Value Reference Range Interpretation Comments Phosphorus (test code = Phosphorus) 3.6 2.5-4.5 [facility]2016-12-15 10:36:00 Test Item Value Reference Range Interpretation Comments Magnesium Lvl (test code = Magnesium 2.9 1.8-2.4 Lvl) [facility]2016-12-15 10:36:00 Test Item Value Reference Range Interpretation Comments Phosphorus (test code = Phosphorus) 3.6 2.5-4.5 [place] [id number] 16:19:00 Test Item Value Reference Range Interpretation Comments Vanco Lvl (test code = Vanco Lvl) 10.4 [place] [id number] 16:19:00 Test Item Value Reference Range Interpretation Comments Vanco Lvl (test code = Vanco Lvl) 10.4 [place] [id number] 16:19:00 Test Item Value Reference Range Interpretation Comments Vanco Lvl (test code = Vanco Lvl) 10.4 [place] [id number] 16:19:00 Test Item Value Reference Range Interpretation Comments Vanco Lvl (test code = Vanco Lvl) 10.[address] [facility] [facility] CenterOpaytnoPLVRVCEIEQ8855-18-59 11:57:00 Test Item Value Reference Range Interpretation Comments Plt Morph (test code = Normal (03/06/16 5:57 Plt Morph) AM) [facility] CenterXqzrmmgELKPPOTOMQ8890-00-28 11:57:00 Test Item Value Reference Range Interpretation Comments Plt Morph (test code = Normal (03/06/16 5:57 Plt Morph) AM) [facility] CenterUyyiswhRMBWODPRQX2480-95-77 11:57:00 Test Item Value Reference Range Interpretation Comments Plt Morph (test code = Normal (03/06/16 5:57 Plt Morph) AM) [facility] CenterMfttiwsPKKFPNFTCF6327-84-84 11:57:00 Test Item Value Reference Range Interpretation Comments Plt Morph (test code = Normal (03/06/16 5:57 Plt Morph) AM) [facility]CvxnyiiTZLIJQHFYG2853-95-17 21:48:00 Test Item Value Reference Range Interpretation Comments Vanco Tr TND (test code = Vanco Tr TND) 1530 [facility] CenterQybfxorHTNMUYJVMQ1102-74-40 21:48:00 Test Item Value Reference Range Interpretation Comments Vanco Tr (test code = Vanco Tr) 11.6 [facility]EtyexiwGWHGQEOEJM6106-93-78 21:48:00 Test Item Value Reference Range Interpretation Comments Vanco Tr TND (test code = Vanco Tr TND) [facility] [facility] CenterBzgzasjWYXXKZIAIZ1833-71-77 21:48:00 Test Item Value Reference Range Interpretation Comments Vanco Tr (test code = Vanco Tr) 11.6 [facility]QtacsvhEFOEOIKDRM5347-62-59 21:48:00 Test Item Value Reference Range Interpretation Comments Vanco Tr TND (test code = Vanco Tr TND) [facility] [facility] CenterTfpnmnmBKEPPERXXO4644-18-44 21:48:00 Test Item Value Reference Range Interpretation Comments Vanco Tr (test code = Vanco Tr) 11.6 [facility]CmnmibdTTLIIHCDPQ6843-84-96 21:48:00 Test Item Value Reference Range Interpretation Comments Vanco Tr TND (test code = Vanco Tr TND) 1530 [facility]BsmvacdXZDGKKUSCG6767-38-58 21:48:00 Test Item Value Reference Range Interpretation Comments Vanco Tr (test code = Vanco Tr) 11.6 [facility]anoLvppboqVRFBYGRDGF7137-29-79 06:56:00 Test Item Value Reference Range Interpretation Comments Vanco Lvl (test code = Vanco Lvl) 9.9 [facility]anoPaaqfafSYKRLWBMGT1265-27-49 06:56:00 Test Item Value Reference Range Interpretation Comments Vanco Lvl (test code = Vanco Lvl) 9.9 [facility]JoxmvteAJBHBTDIIQ9450-65-22 06:56:00 Test Item Value Reference Range Interpretation Comments Vanco Lvl (test code = Vanco Lvl) 9.9 [facility]anoBxiifrlFNDCBGMDZQ9313-48-43 06:56:00 Test Item Value Reference Range Interpretation Comments Vanco Lvl (test code = Vanco Lvl) 9.9 [facility]CHE[facility] [id number] 11:28:00 Test Item Value Reference Range Interpretation Comments Phosphorus (test code = Phosphorus) 3.9 2.5-4.5 [facility] [id number] 11:28:00 Test Item Value Reference Range Interpretation Comments Magnesium Lvl (test code = Magnesium 2.8 1.8-2.4 Lvl) [facility] AND [id number] 11:28:00 Test Item Value Reference Range Interpretation Comments UA Glucose (test code = UA Glucose) 500mg/dL [facility] AND [id number] 11:28:00 Test Item Value Reference Range Interpretation Comments UA Trans Epi (test code = UA Trans Epi) RARE [facility] AND [id number] 11:28:00 Test Item Value Reference Range Interpretation Comments UA Urobilinogen (test code = UA <=1.0 mg/dL 0.1-1.0 Urobilinogen) [facility] AND [id number] 11:28:00 Test Item Value Reference Range Interpretation Comments UA Mucus (test code = UA Mucus) Many /LPF [facility] AND [id number] 11:28:00 Test Item Value Reference Range Interpretation Comments Micro? (test code = Performed *NA*(03/04/16 Micro?) 5:28 AM) [facility] AND [id number] 11:28:00 Test Item Value Reference Range Interpretation Comments UA WBC (test code = 39 See_Comment [Automa galina message] The UA WBC) system which ge nerated this result transmit galina reference range : <=5. The reference range was not used to interpr et this result as karrie l/abnormal. [facility] AND [id number] 11:28:00 Test Item Value Reference Range Interpretation Comments UA Turbidity (test code Slight *ABN*(03/04/16 = UA Turbidity) 5:28 AM) [facility] AND [id number] 11:28:00 Test Item Value Reference Range Interpretation Comments UA pH (test code = UA pH) 5.5 5.0-8.0 [facility] AND [id number] 11:28:00 Test Item Value Reference Range Interpretation Comments UA Bacteria (test code = UA Many /HPF Bacteria) [facility] [id number] 11:28:00 Test Item Value Reference Range Interpretation Comments UA Leuk Est (test Moderate *ABN*(03/04/16 code = UA Leuk Est) 5:28 AM) [facility] AND [id number] 11:28:00 Test Item Value Reference Range Interpretation Comments UA RBC (test code = 2 See_Comment [Automa galina message] The UA RBC) system which ge nerated this result transmit galina reference range : <=2. The reference range was not used to interpr et this result as karrie l/abnormal. [facility] AND [id number] 11:28:00 Test Item Value Reference Range Interpretation Comments UA Color (test code = Yellow *NA*(03/04/16 UA Color) 5:28 AM) [facility] [id number] 11:28:00 Test Item Value Reference Range Interpretation Comments UA Spec Grav (test code = UA Spec Grav) 1.027 [facility] AND [id number] 11:28:00 Test Item Value Reference Range Interpretation Comments UA Nitrite (test code Negative (03/04/16 5:28 = UA Nitrite) AM) [facility] [id number] 11:28:00 Test Item Value Reference Range Interpretation Comments UA Protein (test code = UA Protein) 30 mg/dL [facility] AND [id number] 11:28:00 Test Item Value Reference Range Interpretation Comments UA Ketones (test code = UA Negative mg/dL Ketones) [facility] AND [id number] 11:28:00 Test Item Value Reference Range Interpretation Comments UA Bili (test code = Negative *NA*(03/04/16 UA Bili) 5:28 AM) [facility] [id number] 11:28:00 Test Item Value Reference Range Interpretation Comments UA Blood (test code = Negative (03/04/16 5:28 UA Blood) AM) [facility]CHE[facility] [id number] 11:28:00 Test Item Value Reference Range Interpretation Comments Phosphorus (test code = Phosphorus) 3.9 2.5-4.5 [facility] [id number] 11:28:00 Test Item Value Reference Range Interpretation Comments Magnesium Lvl (test code = Magnesium 2.8 1.8-2.4 Lvl) [facility] [id number] 11:28:00 Test Item Value Reference Range Interpretation Comments UA Glucose (test code = UA Glucose) 500mg/dL [facility] [id number] 11:28:00 Test Item Value Reference Range Interpretation Comments UA Trans Epi (test code = UA Trans Epi) RARE [facility] AND [id number] 11:28:00 Test Item Value Reference Range Interpretation Comments UA Urobilinogen (test code = UA <=1.0 mg/dL 0.1-1.0 Urobilinogen) [facility] [id number] 11:28:00 Test Item Value Reference Range Interpretation Comments UA Mucus (test code = UA Mucus) Many /LPF [facility] [id number] 11:28:00 Test Item Value Reference Range Interpretation Comments Micro? (test code = Performed *NA*(03/04/16 Micro?) 5:28 AM) [facility] AND [id number] 11:28:00 Test Item Value Reference Range Interpretation Comments UA WBC (test code = 39 See_Comment [Automa galina message] The UA WBC) system which ge nerated this result transmit galina reference range : <=5. The reference range was not used to interpr et this result as karrie l/abnormal. [facility] [id number] 11:28:00 Test Item Value Reference Range Interpretation Comments UA Turbidity (test code Slight *ABN*(03/04/16 = UA Turbidity) 5:28 AM) [facility] AND [id number] 11:28:00 Test Item Value Reference Range Interpretation Comments UA pH (test code = UA pH) 5.5 5.0-8.0 [facility] AND [id number] 11:28:00 Test Item Value Reference Range Interpretation Comments UA Bacteria (test code = UA Many /HPF Bacteria) [facility] AND [id number] 11:28:00 Test Item Value Reference Range Interpretation Comments UA Leuk Est (test Moderate *ABN*(03/04/16 code = UA Leuk Est) 5:28 AM) [facility] AND [id number] 11:28:00 Test Item Value Reference Range Interpretation Comments UA RBC (test code = 2 See_Comment [Automa galina message] The UA RBC) system which ge nerated this result transmit galina reference range : <=2. The reference range was not used to interpr et this result as karrie l/abnormal. [facility] [id number] 11:28:00 Test Item Value Reference Range Interpretation Comments UA Color (test code = Yellow *NA*(03/04/16 UA Color) 5:28 AM) [facility] [id number] 11:28:00 Test Item Value Reference Range Interpretation Comments UA Spec Grav (test code = UA Spec Grav) 1.027 [facility] AND [id number] 11:28:00 Test Item Value Reference Range Interpretation Comments UA Nitrite (test code Negative (03/04/16 5:28 = UA Nitrite) AM) [facility] AND [id number] 11:28:00 Test Item Value Reference Range Interpretation Comments UA Protein (test code = UA Protein) 30 mg/dL [facility] AND [id number] 11:28:00 Test Item Value Reference Range Interpretation Comments UA Ketones (test code = UA Negative mg/dL Ketones) [facility] AND [id number] 11:28:00 Test Item Value Reference Range Interpretation Comments UA Bili (test code = Negative *NA*(03/04/16 UA Bili) 5:28 AM) [facility] AND [id number] 11:28:00 Test Item Value Reference Range Interpretation Comments UA Blood (test code = Negative (03/04/16 5:28 UA Blood) AM) [facility] [id number] 11:28:00 Test Item Value Reference Range Interpretation Comments Phosphorus (test code = Phosphorus) 3.9 2.5-4.5 [facility] [id number] 11:28:00 Test Item Value Reference Range Interpretation Comments Magnesium Lvl (test code = Magnesium 2.8 1.8-2.4 Lvl) [facility] AND [id number] 11:28:00 Test Item Value Reference Range Interpretation Comments UA Glucose (test code = UA Glucose) 500mg/dL [facility] AND [id number] 11:28:00 Test Item Value Reference Range Interpretation Comments UA Trans Epi (test code = UA Trans Epi) RARE [facility] AND [id number] 11:28:00 Test Item Value Reference Range Interpretation Comments UA Urobilinogen (test code = UA <=1.0 mg/dL 0.1-1.0 Urobilinogen) [facility] AND [id number] 11:28:00 Test Item Value Reference Range Interpretation Comments UA Mucus (test code = UA Mucus) Many /LPF [facility] AND [id number] 11:28:00 Test Item Value Reference Range Interpretation Comments Micro? (test code = Performed *NA*(03/04/16 Micro?) 5:28 AM) [facility] AND [id number] 11:28:00 Test Item Value Reference Range Interpretation Comments UA WBC (test code = 39 See_Comment [Automa galina message] The UA WBC) system which ge nerated this result transmit galina reference range : <=5. The reference range was not used to interpr et this result as karrie l/abnormal. [facility] AND [id number] 11:28:00 Test Item Value Reference Range Interpretation Comments UA Turbidity (test code Slight *ABN*(03/04/16 = UA Turbidity) 5:28 AM) [facility] AND [id number] 11:28:00 Test Item Value Reference Range Interpretation Comments UA pH (test code = UA pH) 5.5 5.0-8.0 [facility] AND [id number] 11:28:00 Test Item Value Reference Range Interpretation Comments UA Bacteria (test code = UA Many /HPF Bacteria) [facility] AND [id number] 11:28:00 Test Item Value Reference Range Interpretation Comments UA Leuk Est (test Moderate *ABN*(03/04/16 code = UA Leuk Est) 5:28 AM) [facility] AND [id number] 11:28:00 Test Item Value Reference Range Interpretation Comments UA RBC (test code = 2 See_Comment [Automa galina message] The UA RBC) system which ge nerated this result transmit galina reference range : <=2. The reference range was not used to interpr et this result as karrie l/abnormal. [facility] AND [id number] 11:28:00 Test Item Value Reference Range Interpretation Comments UA Color (test code = Yellow *NA*(03/04/16 UA Color) 5:28 AM) [facility] AND [id number] 11:28:00 Test Item Value Reference Range Interpretation Comments UA Spec Grav (test code = UA Spec Grav) 1.027 [facility] AND [id number] 11:28:00 Test Item Value Reference Range Interpretation Comments UA Nitrite (test code Negative (03/04/16 5:28 = UA Nitrite) AM) [facility] AND [id number] 11:28:00 Test Item Value Reference Range Interpretation Comments UA Protein (test code = UA Protein) 30 mg/dL [facility] AND [id number] 11:28:00 Test Item Value Reference Range Interpretation Comments UA Ketones (test code = UA Negative mg/dL Ketones) [facility] AND [id number] 11:28:00 Test Item Value Reference Range Interpretation Comments UA Bili (test code = Negative *NA*(03/04/16 UA Bili) 5:28 AM) [facility] AND [id number] 11:28:00 Test Item Value Reference Range Interpretation Comments UA Blood (test code = Negative (03/04/16 5:28 UA Blood) AM) [facility] [id number] 11:28:00 Test Item Value Reference Range Interpretation Comments Phosphorus (test code = Phosphorus) 3.9 2.5-4.5 [facility] [id number] 11:28:00 Test Item Value Reference Range Interpretation Comments Magnesium Lvl (test code = Magnesium 2.8 1.8-2.4 Lvl) [facility] AND [id number] 11:28:00 Test Item Value Reference Range Interpretation Comments UA Glucose (test code = UA Glucose) 500mg/dL [facility] AND [id number] 11:28:00 Test Item Value Reference Range Interpretation Comments UA Trans Epi (test code = UA Trans Epi) RARE [facility] AND [id number] 11:28:00 Test Item Value Reference Range Interpretation Comments UA Urobilinogen (test code = UA <=1.0 mg/dL 0.1-1.0 Urobilinogen) [facility] AND [id number] 11:28:00 Test Item Value Reference Range Interpretation Comments UA Mucus (test code = UA Mucus) Many /LPF [facility] AND [id number] 11:28:00 Test Item Value Reference Range Interpretation Comments Micro? (test code = Performed *NA*(03/04/16 Micro?) 5:28 AM) [facility] AND [id number] 11:28:00 Test Item Value Reference Range Interpretation Comments UA WBC (test code = 39 See_Comment [Automa galina message] The UA WBC) system which ge nerated this result transmit galina reference range : <=5. The reference range was not used to interpr et this result as karrie l/abnormal. [facility] AND [id number] 11:28:00 Test Item Value Reference Range Interpretation Comments UA Turbidity (test code Slight *ABN*(03/04/16 = UA Turbidity) 5:28 AM) [facility] AND [id number] 11:28:00 Test Item Value Reference Range Interpretation Comments UA pH (test code = UA pH) 5.5 5.0-8.0 [facility] AND [id number] 11:28:00 Test Item Value Reference Range Interpretation Comments UA Bacteria (test code = UA Many /HPF Bacteria) [facility] AND [id number] 11:28:00 Test Item Value Reference Range Interpretation Comments UA Leuk Est (test Moderate *ABN*(03/04/16 code = UA Leuk Est) 5:28 AM) [facility] AND [id number] 11:28:00 Test Item Value Reference Range Interpretation Comments UA RBC (test code = 2 See_Comment [Automa galina message] The UA RBC) system which ge nerated this result transmit galina reference range : <=2. The reference range was not used to interpr et this result as karrie l/abnormal. [facility] AND [id number] 11:28:00 Test Item Value Reference Range Interpretation Comments UA Color (test code = Yellow *NA*(03/04/16 UA Color) 5:28 AM) [facility] AND [id number] 11:28:00 Test Item Value Reference Range Interpretation Comments UA Spec Grav (test code = UA Spec Grav) 1.027 [facility] AND [id number] 11:28:00 Test Item Value Reference Range Interpretation Comments UA Nitrite (test code Negative (03/04/16 5:28 = UA Nitrite) AM) [facility] AND [id number] 11:28:00 Test Item Value Reference Range Interpretation Comments UA Protein (test code = UA Protein) 30 mg/dL [facility] AND [id number] 11:28:00 Test Item Value Reference Range Interpretation Comments UA Ketones (test code = UA Negative mg/dL Ketones) [facility] AND [id number] 11:28:00 Test Item Value Reference Range Interpretation Comments UA Bili (test code = Negative *NA*(03/04/16 UA Bili) 5:28 AM) [facility] AND [id number] 11:28:00 Test Item Value Reference Range Interpretation Comments UA Blood (test code = Negative (03/04/16 5:28 UA Blood) AM) [facility] [id number] 06:42:00 Test Item Value Reference Range Interpretation Comments Antibody Scrn (test Negative (02/29/16 code = Antibody Scrn) 12:42 AM) [facility] [id number] 06:42:00 Test Item Value Reference Range Interpretation Comments ABO/Rh (test code = ABO/Rh) O POS [id number] 06:42:00 Test Item Value Reference Range Interpretation Comments Basophils # (test code 0.1 See_Comment [Aut omated message] The = Basophils #) system which generated this result tra nsmitted reference range : <=0.2. The reference r ronaldo was not used to int erpret this result as normal/abnormal . [facility] [id number] 06:42:00 Test Item Value Reference Range Interpretation Comments Antibody Scrn (test Negative (02/29/16 code = Antibody Scrn) 12:42 AM) [facility] [id number] 06:42:00 Test Item Value Reference Range Interpretation Comments ABO/Rh (test code = ABO/Rh) O POS [facility] [id number] 06:42:00 Test Item Value Reference Range Interpretation Comments Basophils # (test code 0.1 See_Comment [Aut omated message] The = Basophils #) system which generated this result tra nsmitted reference range : <=0.2. The reference r ronaldo was not used to int erpret this result as normal/abnormal . [facility] [id number] 06:42:00 Test Item Value Reference Range Interpretation Comments Antibody Scrn (test Negative (02/29/16 code = Antibody Scrn) 12:42 AM) [facility] [id number] 06:42:00 Test Item Value Reference Range Interpretation Comments ABO/Rh (test code = ABO/Rh) O POS [facility] [id number] 06:42:00 Test Item Value Reference Range Interpretation Comments Basophils # (test code 0.1 See_Comment [Aut omated message] The = Basophils #) system which generated this result tra nsmitted reference range : <=0.2. The reference r ronaldo was not used to int erpret this result as normal/abnormal . [facility] [id number] 06:42:00 Test Item Value Reference Range Interpretation Comments Antibody Scrn (test Negative (02/29/16 code = Antibody Scrn) 12:42 AM) [facility] [id number] 06:42:00 Test Item Value Reference Range Interpretation Comments ABO/Rh (test code = ABO/Rh) O POS [facility] [id number] 06:42:00 Test Item Value Reference Range Interpretation Comments Basophils # (test code 0.1 See_Comment [Aut omated message] The = Basophils #) system which generated this result tra nsmitted reference range : <=0.2. The reference r ronaldo was not used to int erpret this result as normal/abnormal . [facility] [id number] 07:29:00 Test Item Value Reference Range Interpretation Comments Polychrom (test code = Moderate *ABN*(02/28/16 Polychrom) 1:29 AM) [facility] [id number] 07:29:00 Test Item Value Reference Range Interpretation Comments Macrocyte (test code = 1+ *ABN*(02/28/16 Macrocyte) 1:29 AM) [facility] [id number] 07:29:00 Test Item Value Reference Range Interpretation Comments Basophils # (test code 0.1 See_Comment [Aut omated message] The = Basophils #) system which generated this result tra nsmitted reference range : <=0.2. The reference r ronaldo was not used to int erpret this result as normal/abnormal . [facility] [id number] 07:29:00 Test Item Value Reference Range Interpretation Comments Plt Morph (test code = Normal (02/28/16 1:29 Plt Morph) AM) [facility] [id number] 07:29:00 Test Item Value Reference Range Interpretation Comments Polychrom (test code = Moderate *ABN*(02/28/16 Polychrom) 1:29 AM) [facility] [id number] 07:29:00 Test Item Value Reference Range Interpretation Comments Macrocyte (test code = 1+ *ABN*(02/28/16 Macrocyte) 1:29 AM) [facility] [id number] 07:29:00 Test Item Value Reference Range Interpretation Comments Basophils # (test code 0.1 See_Comment [Aut omated message] The = Basophils #) system which generated this result tra nsmitted reference range : <=0.2. The reference r ronaldo was not used to int erpret this result as normal/abnormal . [facility] [id number] 07:29:00 Test Item Value Reference Range Interpretation Comments Plt Morph (test code = Normal (02/28/16 1:29 Plt Morph) AM) [facility] [id number] 07:29:00 Test Item Value Reference Range Interpretation Comments Polychrom (test code = Moderate *ABN*(02/28/16 Polychrom) 1:29 AM) [facility] [id number] 07:29:00 Test Item Value Reference Range Interpretation Comments Macrocyte (test code = 1+ *ABN*(02/28/16 Macrocyte) 1:29 AM) [facility] [id number] 07:29:00 Test Item Value Reference Range Interpretation Comments Basophils # (test code 0.1 See_Comment [Aut omated message] The = Basophils #) system which generated this result tra nsmitted reference range : <=0.2. The reference r ronaldo was not used to int erpret this result as normal/abnormal . [facility] [id number] 07:29:00 Test Item Value Reference Range Interpretation Comments Plt Morph (test code = Normal (02/28/16 1:29 Plt Morph) AM) [facility] [id number] 07:29:00 Test Item Value Reference Range Interpretation Comments Polychrom (test code = Moderate *ABN*(02/28/16 Polychrom) 1:29 AM) [facility] [id number] 07:29:00 Test Item Value Reference Range Interpretation Comments Macrocyte (test code = 1+ *ABN*(02/28/16 Macrocyte) 1:29 AM) [facility] [id number] 07:29:00 Test Item Value Reference Range Interpretation Comments Basophils # (test code 0.1 See_Comment [Aut omated message] The = Basophils #) system which generated this result tra nsmitted reference range : <=0.2. The reference r ronaldo was not used to int erpret this result as normal/abnormal . [facility] [id number] 07:29:00 Test Item Value Reference Range Interpretation Comments Plt Morph (test code = Normal (02/28/16 1:29 Plt Morph) AM) [facility] CenterRplpyzeCACNGIKSPY8639-12-09 06:16:00 Test Item Value Reference Range Interpretation Comments RBC Morph (test code = Normal (02/24/16 12:16 RBC Morph) AM) [facility] [id number] 06:16:00 Test Item Value Reference Range Interpretation Comments Plt Morph (test code = Normal (02/24/16 12:16 Plt Morph) AM) [facility] [id number] 06:16:00 Test Item Value Reference Range Interpretation Comments RBC Morph (test code = Normal (02/24/16 12:16 RBC Morph) AM) [facility] [id number] 06:16:00 Test Item Value Reference Range Interpretation Comments Plt Morph (test code = Normal (02/24/16 12:16 Plt Morph) AM) [facility] Cent[id number] 06:16:00 Test Item Value Reference Range Interpretation Comments RBC Morph (test code = Normal (02/24/16 12:16 RBC Morph) AM) [facility] Cent[id number] 06:16:00 Test Item Value Reference Range Interpretation Comments Plt Morph (test code = Normal (02/24/16 12:16 Plt Morph) AM) [facility] Cent[id number] 06:16:00 Test Item Value Reference Range Interpretation Comments RBC Morph (test code = Normal (02/24/16 12:16 RBC Morph) AM) [facility] [id number] 06:16:00 Test Item Value Reference Range Interpretation Comments Plt Morph (test code = Normal (02/24/16 12:16 Plt Morph) AM) [facility] CenterPhinlbzZMUYTFGDKB1928-11-43 07:27:00 Test Item Value Reference Range Interpretation Comments Polychrom (test code = Moderate Polychrom) *ABN*(02/22/16 1:27 AM) [facility] CenterUcpuwaqRSQQYZXUZW7694-09-68 07:27:00 Test Item Value Reference Range Interpretation Comments Toxic Gran (test code = Toxic Gran) slight [facility] CenterWsxneovIDSEBFQCNZ7580-53-10 07:27:00 Test Item Value Reference Range Interpretation Comments Polychrom (test code = Moderate Polychrom) *ABN*(02/22/16 1:27 AM) [facility] [id number] 07:27:00 Test Item Value Reference Range Interpretation Comments Toxic Gran (test code = Toxic Gran) slight [facility] CenterAzvzzzvXACICPIJGN7712-25-63 07:27:00 Test Item Value Reference Range Interpretation Comments Polychrom (test code = Moderate Polychrom) *ABN*(02/22/16 1:27 AM) [facility] CenterElejrxdAJTGZDTCFW5056-61-26 07:27:00 Test Item Value Reference Range Interpretation Comments Toxic Gran (test code = Toxic Gran) slight [facility] Cent[id number] 07:27:00 Test Item Value Reference Range Interpretation Comments Polychrom (test code = Moderate Polychrom) *ABN*(02/22/16 1:27 AM) [facility] CenterYvslpxkOVLATQCMKY5380-83-24 07:27:00 Test Item Value Reference Range Interpretation Comments Toxic Gran (test code = Toxic Gran) slight [facility]2016-11-28 16:37:00 Test Item Value Reference Range Interpretation Comments UA Nitrite (test code Negative (02/21/16 = UA Nitrite) 10:37 AM) [facility] AND [id number] 16:37:00 Test Item Value Reference Range Interpretation Comments UA Urobilinogen (test code = UA 8.0 0.1-1.0 Urobilinogen) [facility] AND [id number] 16:37:00 Test Item Value Reference Range Interpretation Comments UA Blood (test code = Negative (02/21/16 10:37 UA Blood) AM) [facility] AND [id number] 16:37:00 Test Item Value Reference Range Interpretation Comments UA Bili (test code = Negative *NA*(02/21/16 UA Bili) 10:37 AM) [facility] AND [id number] 16:37:00 Test Item Value Reference Range Interpretation Comments UA Ketones (test code = UA Negative mg/dL Ketones) [facility] AND [id number] 16:37:00 Test Item Value Reference Range Interpretation Comments UA Mucus (test code = UA Mucus) Few /LPF [facility] AND [id number] 16:37:00 Test Item Value Reference Range Interpretation Comments UA Leuk Est (test Negative (02/21/16 10:37 code = UA Leuk Est) AM) [facility] AND [id number] 16:37:00 Test Item Value Reference Range Interpretation Comments UA Sq Epi (test code = UA Sq Epi) None Seen [facility] AND [id number] 16:37:00 Test Item Value Reference Range Interpretation Comments UA Color (test code = Yellow *NA*(02/21/16 UA Color) 10:37 AM) [facility] AND [id number] 16:37:00 Test Item Value Reference Range Interpretation Comments UA Turbidity (test code = Clear (02/21/16 UA Turbidity) 10:37 AM) [facility] AND [id number] 16:37:00 Test Item Value Reference Range Interpretation Comments UA pH (test code = UA pH) 6.5 5.0-8.0 [facility] AND [id number] 16:37:00 Test Item Value Reference Range Interpretation Comments UA Spec Grav (test code = UA Spec Grav) 1.018 [facility] AND [id number] 16:37:00 Test Item Value Reference Range Interpretation Comments UA Glucose (test code = UA Negative mg/dL Glucose) [facility] AND [id number] 16:37:00 Test Item Value Reference Range Interpretation Comments UA Protein (test code = UA Protein) 10 mg/dL [facility] AND [id number] 16:37:00 Test Item Value Reference Range Interpretation Comments UA Nitrite (test code Negative (02/21/16 = UA Nitrite) 10:37 AM) [facility] AND [id number] 16:37:00 Test Item Value Reference Range Interpretation Comments UA Urobilinogen (test code = UA 8.0 0.1-1.0 Urobilinogen) [facility] AND [id number] 16:37:00 Test Item Value Reference Range Interpretation Comments UA Blood (test code = Negative (02/21/16 10:37 UA Blood) AM) [facility] AND [id number] 16:37:00 Test Item Value Reference Range Interpretation Comments UA Bili (test code = Negative *NA*(02/21/16 UA Bili) 10:37 AM) [facility] AND [id number] 16:37:00 Test Item Value Reference Range Interpretation Comments UA Ketones (test code = UA Negative mg/dL Ketones) [facility] AND [id number] 16:37:00 Test Item Value Reference Range Interpretation Comments UA Mucus (test code = UA Mucus) Few /LPF [facility] AND [id number] 16:37:00 Test Item Value Reference Range Interpretation Comments UA Leuk Est (test Negative (02/21/16 10:37 code = UA Leuk Est) AM) [facility] AND [id number] 16:37:00 Test Item Value Reference Range Interpretation Comments UA Sq Epi (test code = UA Sq Epi) None Seen [facility] AND [id number] 16:37:00 Test Item Value Reference Range Interpretation Comments UA Color (test code = Yellow *NA*(02/21/16 UA Color) 10:37 AM) [facility] AND [id number] 16:37:00 Test Item Value Reference Range Interpretation Comments UA Turbidity (test code = Clear (02/21/16 UA Turbidity) 10:37 AM) [facility] AND [id number] 16:37:00 Test Item Value Reference Range Interpretation Comments UA pH (test code = UA pH) 6.5 5.0-8.0 [facility] AND [id number] 16:37:00 Test Item Value Reference Range Interpretation Comments UA Spec Grav (test code = UA Spec Grav) 1.018 [facility] AND [id number] 16:37:00 Test Item Value Reference Range Interpretation Comments UA Glucose (test code = UA Negative mg/dL Glucose) [facility] AND [id number] 16:37:00 Test Item Value Reference Range Interpretation Comments UA Protein (test code = UA Protein) 10 mg/dL [facility] AND [id number] 16:37:00 Test Item Value Reference Range Interpretation Comments UA Nitrite (test code Negative (02/21/16 = UA Nitrite) 10:37 AM) [facility] AND [id number] 16:37:00 Test Item Value Reference Range Interpretation Comments UA Urobilinogen (test code = UA 8.0 0.1-1.0 Urobilinogen) [facility] AND [id number] 16:37:00 Test Item Value Reference Range Interpretation Comments UA Blood (test code = Negative (02/21/16 10:37 UA Blood) AM) [facility] AND [id number] 16:37:00 Test Item Value Reference Range Interpretation Comments UA Bili (test code = Negative *NA*(02/21/16 UA Bili) 10:37 AM) [facility] AND [id number] 16:37:00 Test Item Value Reference Range Interpretation Comments UA Ketones (test code = UA Negative mg/dL Ketones) [facility] AND [id number] 16:37:00 Test Item Value Reference Range Interpretation Comments UA Mucus (test code = UA Mucus) Few /LPF [facility] AND [id number] 16:37:00 Test Item Value Reference Range Interpretation Comments UA Leuk Est (test Negative (02/21/16 10:37 code = UA Leuk Est) AM) [facility] AND [id number] 16:37:00 Test Item Value Reference Range Interpretation Comments UA Sq Epi (test code = UA Sq Epi) None Seen [facility] AND [id number] 16:37:00 Test Item Value Reference Range Interpretation Comments UA Color (test code = Yellow *NA*(02/21/16 UA Color) 10:37 AM) [facility] AND [id number] 16:37:00 Test Item Value Reference Range Interpretation Comments UA Turbidity (test code = Clear (02/21/16 UA Turbidity) 10:37 AM) [facility] AND [id number] 16:37:00 Test Item Value Reference Range Interpretation Comments UA pH (test code = UA pH) 6.5 5.0-8.0 [facility] AND [id number] 16:37:00 Test Item Value Reference Range Interpretation Comments UA Spec Grav (test code = UA Spec Grav) 1.018 [facility] AND [id number] 16:37:00 Test Item Value Reference Range Interpretation Comments UA Glucose (test code = UA Negative mg/dL Glucose) [facility] AND [id number] 16:37:00 Test Item Value Reference Range Interpretation Comments UA Protein (test code = UA Protein) 10 mg/dL [facility] AND [id number] 16:37:00 Test Item Value Reference Range Interpretation Comments UA Nitrite (test code Negative (02/21/16 = UA Nitrite) 10:37 AM) [facility] AND [id number] 16:37:00 Test Item Value Reference Range Interpretation Comments UA Urobilinogen (test code = UA 8.0 0.1-1.0 Urobilinogen) [facility] AND [id number] 16:37:00 Test Item Value Reference Range Interpretation Comments UA Blood (test code = Negative (02/21/16 10:37 UA Blood) AM) [facility] AND [id number] 16:37:00 Test Item Value Reference Range Interpretation Comments UA Bili (test code = Negative *NA*(02/21/16 UA Bili) 10:37 AM) [facility] AND [id number] 16:37:00 Test Item Value Reference Range Interpretation Comments UA Ketones (test code = UA Negative mg/dL Ketones) [facility] AND [id number] 16:37:00 Test Item Value Reference Range Interpretation Comments UA Mucus (test code = UA Mucus) Few /LPF [facility] AND [id number] 16:37:00 Test Item Value Reference Range Interpretation Comments UA Leuk Est (test Negative (02/21/16 10:37 code = UA Leuk Est) AM) [facility] AND [id number] 16:37:00 Test Item Value Reference Range Interpretation Comments UA Sq Epi (test code = UA Sq Epi) None Seen [facility] AND [id number] 16:37:00 Test Item Value Reference Range Interpretation Comments UA Color (test code = Yellow *NA*(02/21/16 UA Color) 10:37 AM) [facility] AND [id number] 16:37:00 Test Item Value Reference Range Interpretation Comments UA Turbidity (test code = Clear (02/21/16 UA Turbidity) 10:37 AM) [facility] AND [id number] 16:37:00 Test Item Value Reference Range Interpretation Comments UA pH (test code = UA pH) 6.5 5.0-8.0 [facility] AND [id number] 16:37:00 Test Item Value Reference Range Interpretation Comments UA Spec Grav (test code = UA Spec Grav) 1.018 [facility] AND [id number] 16:37:00 Test Item Value Reference Range Interpretation Comments UA Glucose (test code = UA Negative mg/dL Glucose) [facility] AND [id number] 16:37:00 Test Item Value Reference Range Interpretation Comments UA Protein (test code = UA Protein) 10 mg/dL [id number] 06:24:00 Test Item Value Reference Range Interpretation Comments Prealbumin (test code = Prealbumin) 21.4 18.0-45.0 [facility] [id number] 06:24:00 Test Item Value Reference Range Interpretation Comments C-REACTIVE PROTEIN (test code = 101.0 C-REACTIVE PROTEIN) [facility] C[id number] 06:24:00 Test Item Value Reference Range Interpretation Comments Prealbumin (test code = Prealbumin) 21.4 18.0-45.0 [facility] CampusNgbcooaZXDKSDHRPX3541-70-05 06:24:00 Test Item Value Reference Range Interpretation Comments C-REACTIVE PROTEIN (test code = 101.0 C-REACTIVE PROTEIN) [facility] [id number] 06:24:00 Test Item Value Reference Range Interpretation Comments Prealbumin (test code = Prealbumin) 21.4 18.0-45.0 [facility] CampusBtphmuiXZNBXZUIYS8536-37-07 06:24:00 Test Item Value Reference Range Interpretation Comments C-REACTIVE PROTEIN (test code = 101.0 C-REACTIVE PROTEIN) [facility] CampusTyqqnbyZKHPCQQNNJ0854-26-28 06:24:00 Test Item Value Reference Range Interpretation Comments Prealbumin (test code = Prealbumin) 21.4 18.0-45.0 [facility] CampusGsllmqaOCGBUNEGFH2302-77-18 06:24:00 Test Item Value Reference Range Interpretation Comments C-REACTIVE PROTEIN (test code = 101.0 C-REACTIVE PROTEIN) [place] [id number] 19:35:00 Test Item Value Reference Range Interpretation Comments Vanco Tr TND (test code = Vanco Tr TND) 1400 [id number] 19:35:00 Test Item Value Reference Range Interpretation Comments Vanco Tr (test code = Vanco Tr) 11.4 [id number] 19:35:00 Test Item Value Reference Range Interpretation Comments Vanco Tr TND (test code = Vanco Tr TND) 1400 [facility]pJWFZSMNMVJ9325-23-09 19:35:00 Test Item Value Reference Range Interpretation Comments Vanco Tr (test code = Vanco Tr) 11.4 [facility]anoGauhdnoUKKAYNTMWN4401-12-83 19:35:00 Test Item Value Reference Range Interpretation Comments Vanco Tr TND (test code = Vanco Tr TND) 1400 [facility]c[id number] 19:35:00 Test Item Value Reference Range Interpretation Comments Vanco Tr (test code = Vanco Tr) 11.4 [facility]anoLztkprkCPCSRBQXED9063-90-48 19:35:00 Test Item Value Reference Range Interpretation Comments Vanco Tr TND (test code = Vanco Tr TND) 1399 [facility]cosYcdqkvjEFBSHRKSQH4552-60-51 19:35:00 Test Item Value Reference Range Interpretation Comments Vanco Tr (test code = Vanco Tr) 11.[address] [facility] [facility] CenterYtchabhBOPJAHEUPR3642-95-17 06:37:00 Test Item Value Reference Range Interpretation Comments Polychrom (test code = Moderate Polychrom) *ABN*(02/16/16 12:37 AM) [facility] CenterZywiinoACWMLLHGCF1216-78-15 06:37:00 Test Item Value Reference Range Interpretation Comments Polychrom (test code = Moderate Polychrom) *ABN*(02/16/16 12:37 AM) [facility] CenterFghrzquLUXQRDMNAO2442-61-57 06:37:00 Test Item Value Reference Range Interpretation Comments Polychrom (test code = Moderate Polychrom) *ABN*(02/16/16 12:37 AM) [facility] CenterZhbqdtvQQZPGSYOHR6572-73-98 06:37:00 Test Item Value Reference Range Interpretation Comments Polychrom (test code = Moderate Polychrom) *ABN*(02/16/16 12:37 AM) [facility]cosSof[facility] Sounds [id number] 06:37:00 Test Item Value Reference Range Interpretation Comments ABO/Rh (test code = ABO/Rh) O POS [facility]anoEtherios [id number] 06:37:00 Test Item Value Reference Range Interpretation Comments Antibody Scrn (test Negative (02/15/16 code = Antibody Scrn) 12:37 AM) [facility] [id number] 06:37:00 Test Item Value Reference Range Interpretation Comments ABO/Rh (test code = ABO/Rh) O POS [facility]KnewCoin [facility] [id number] 06:37:00 Test Item Value Reference Range Interpretation Comments Antibody Scrn (test Negative (02/15/16 code = Antibody Scrn) 12:37 AM) [facility] [id number] 06:37:00 Test Item Value Reference Range Interpretation Comments ABO/Rh (test code = ABO/Rh) O POS [facility] [id number] 06:37:00 Test Item Value Reference Range Interpretation Comments Antibody Scrn (test Negative (02/15/16 code = Antibody Scrn) 12:37 AM) [facility] [id number] 06:37:00 Test Item Value Reference Range Interpretation Comments ABO/Rh (test code = ABO/Rh) O POS [facility] BANK [id number] 06:37:00 Test Item Value Reference Range Interpretation Comments Antibody Scrn (test Negative (02/15/16 code = Antibody Scrn) 12:37 AM) [facility] CenterAuloopnKZXPWQXGJG1030-13-28 09:34:00 Test Item Value Reference Range Interpretation Comments Hypochrom (test code = 1+ (02/14/16 3:34 Hypochrom) AM) [facility] CenterUeaxvucVMWUVPZLHR3082-64-78 09:34:00 Test Item Value Reference Range Interpretation Comments Rouleaux (test code = Present *ABN*(02/14/16 Rouleaux) 3:34 AM) [facility] CenterIrmjvmrNCDPQVZLCS4441-81-03 09:34:00 Test Item Value Reference Range Interpretation Comments Hypochrom (test code = 1+ (02/14/16 3:34 Hypochrom) AM) [facility] [id number] 09:34:00 Test Item Value Reference Range Interpretation Comments Rouleaux (test code = Present *ABN*(02/14/16 Rouleaux) 3:34 AM) [facility] CenterWqlcnruYJRKOPIVQW7201-92-07 09:34:00 Test Item Value Reference Range Interpretation Comments Hypochrom (test code = 1+ (02/14/16 3:34 Hypochrom) AM) [facility] CenterQryhvatEXSHDLMYLB1447-52-35 09:34:00 Test Item Value Reference Range Interpretation Comments Rouleaux (test code = Present *ABN*(02/14/16 Rouleaux) 3:34 AM) [facility] CenterTljzahtMLCXGLHCGT7921-26-34 09:34:00 Test Item Value Reference Range Interpretation Comments Hypochrom (test code = 1+ (02/14/16 3:34 Hypochrom) AM) [facility] CenterZvebvfqTWARJVVXPR5861-99-67 09:34:00 Test Item Value Reference Range Interpretation Comments Rouleaux (test code = Present *ABN*(02/14/16 Rouleaux) 3:34 AM) [facility]cosOvdomxhIBDNDE7595-79-60 02:22:00 Test Item Value Reference Range Interpretation Comments LDL Direct (test code = LDL Direct) [facility] [id number] 02:22:00 Test Item Value Reference Range Interpretation Comments Hgb A1C (test code = Hgb A1C) 6.3 [facility]cosRgoakszHBPROD4649-44-05 02:22:00 Test Item Value Reference Range Interpretation Comments LDL Direct (test code = LDL Direct) 56 [facility] [id number] 02:22:00 Test Item Value Reference Range Interpretation Comments Hgb A1C (test code = Hgb A1C) 6.3 [facility]cosRhjmptoAGVSAW1053-19-58 02:22:00 Test Item Value Reference Range Interpretation Comments LDL Direct (test code = LDL Direct) 56 [facility] [id number] 02:22:00 Test Item Value Reference Range Interpretation Comments Hgb A1C (test code = Hgb A1C) 6.3 [facility]cosHvccsyfIRKEYY2794-03-29 02:22:00 Test Item Value Reference Range Interpretation Comments LDL Direct (test code = LDL Direct) 56 [facility]2016-11-21 02:22:00 Test Item Value Reference Range Interpretation Comments Hgb A1C (test code = Hgb A1C) 6.3 [facility]CyvlthqSVGOFYFNLI6567-33-54 03:22:00 Test Item Value Reference Range Interpretation Comments Anti-Xa Low Molecular Heparin (test 0.39 code = Anti-Xa Low Molecular Heparin) [facility] [id number] 03:22:00 Test Item Value Reference Range Interpretation Comments Anti-Xa Low Molecular Heparin (test 0.39 code = Anti-Xa Low Molecular Heparin) [facility] CenterEwrwflbXNQCMIKQPE7045-04-82 03:22:00 Test Item Value Reference Range Interpretation Comments Anti-Xa Low Molecular Heparin (test 0.39 code = Anti-Xa Low Molecular Heparin) [facility] CenterVvuhmhtLNTOAENYFV8992-96-16 03:22:00 Test Item Value Reference Range Interpretation Comments Anti-Xa Low Molecular Heparin (test 0.39 code = Anti-Xa Low Molecular Heparin) [facility] [id number] 08:05:00 Test Item Value Reference Range Interpretation Comments RBC product (test code Product available = RBC product) (02/12/16 2:05 AM) [facility] B[facility] [id number] 08:05:00 Test Item Value Reference Range Interpretation Comments RBC product (test code Product available = RBC product) (02/12/16 2:05 AM) [facility] [id number] 08:05:00 Test Item Value Reference Range Interpretation Comments RBC product (test code Product available = RBC product) (02/12/16 2:05 AM) [facility] BANK [id number] 08:05:00 Test Item Value Reference Range Interpretation Comments RBC product (test code Product available = RBC product) (02/12/16 2:05 AM) [facility] [id number] 06:50:00 Test Item Value Reference Range Interpretation Comments Ca Norm WB (test code = Ca Norm WB) 1.15 1.05-1.25 [facility]anoannPARATHYROID [id number] 06:50:00 Test Item Value Reference Range Interpretation Comments Ca Ion WB (test code = Ca Ion WB) 1.09 1.05-1.25 [facility]anoannPARATHYST. [facility] [id number] 06:50:00 Test Item Value Reference Range Interpretation Comments Ca Norm WB (test code = Ca Norm WB) 1.15 1.05-1.25 [facility]anoannPARATHYANMED HEALTH REHABILITATION [id number] 06:50:00 Test Item Value Reference Range Interpretation Comments Ca Ion WB (test code = Ca Ion WB) 1.09 1.05-1.25 [facility]anoannPARATHYROID [id number] 06:50:00 Test Item Value Reference Range Interpretation Comments Ca Norm WB (test code = Ca Norm WB) 1.15 1.05-1.25 [facility]anoannPARATHYROID [id number] 06:50:00 Test Item Value Reference Range Interpretation Comments Ca Ion WB (test code = Ca Ion WB) 1.09 1.05-1.25 [facility]anoannPARATHYROID [id number] 06:50:00 Test Item Value Reference Range Interpretation Comments Ca Norm WB (test code = Ca Norm WB) 1.15 1.05-1.25 [facility]anoannPARATHYROID [id number] 06:50:00 Test Item Value Reference Range Interpretation Comments Ca Ion WB (test code = Ca Ion WB) 1.09 1.05-1.25 [facility]anoannPARATHYROID [id number] 06:01:00 Test Item Value Reference Range Interpretation Comments Ca Norm WB (test code = Ca Norm WB) 1.15 1.05-1.25 [facility]2016-11-19 06:01:00 Test Item Value Reference Range Interpretation Comments Ca Ion WB (test code = Ca Ion WB) 1.15 1.05-1.25 [facility]2016-11-19 06:01:00 Test Item Value Reference Range Interpretation Comments Ca Norm WB (test code = Ca Norm WB) 1.15 1.05-1.25 [facility]2016-11-19 06:01:00 Test Item Value Reference Range Interpretation Comments Ca Ion WB (test code = Ca Ion WB) 1.15 1.05-1.25 [facility]2016-11-19 06:01:00 Test Item Value Reference Range Interpretation Comments Ca Norm WB (test code = Ca Norm WB) 1.15 1.05-1.25 [facility]2016-11-19 06:01:00 Test Item Value Reference Range Interpretation Comments Ca Ion WB (test code = Ca Ion WB) 1.15 1.05-1.25 [facility]2016-11-19 06:01:00 Test Item Value Reference Range Interpretation Comments Ca Norm WB (test code = Ca Norm WB) 1.15 1.05-1.25 [facility]2016-11-19 06:01:00 Test Item Value Reference Range Interpretation Comments Ca Ion WB (test code = Ca Ion WB) 1.15 1.05-1.25 [facility]2016-11-18 15:43:00 Test Item Value Reference Range Interpretation Comments Lactic Acid Lvl (test code = Lactic 2.7 0.5-2.2 Acid Lvl) [facility]2016-11-18 15:43:00 Test Item Value Reference Range Interpretation Comments Lactic Acid Lvl (test code = Lactic 2.7 0.5-2.2 Acid Lvl) [facility]2016-11-18 15:43:00 Test Item Value Reference Range Interpretation Comments Lactic Acid Lvl (test code = Lactic 2.7 0.5-2.2 Acid Lvl) [facility]2016-11-18 15:43:00 Test Item Value Reference Range Interpretation Comments Lactic Acid Lvl (test code = Lactic 2.7 0.5-2.2 Acid Lvl) [facility]anoZdxrywyPDFUZQWARD0593-04-81 08:51:00 Test Item Value Reference Range Interpretation Comments Phenytoin Free (test code = Phenytoin 1.23 1.00-2.00 Free) [facility]anoPhrkptiFRTCHGHWQM7989-01-42 08:51:00 Test Item Value Reference Range Interpretation Comments Phenytoin Free (test code = Phenytoin 1.23 1.00-2.00 Free) [facility] MarcosDbcmcezZKRAXYCVML1569-72-20 08:51:00 Test Item Value Reference Range Interpretation Comments Phenytoin Free (test code = Phenytoin 1.23 1.00-2.00 Free) [id number] 08:51:00 Test Item Value Reference Range Interpretation Comments Phenytoin Free (test code = Phenytoin 1.23 1.00-2.00 Free) [facility] [employer] [id number] 07:30:00 Test Item Value Reference Range Interpretation Comments Troponin-I (test code 1.88 See_Comment [Auto mated message] The = Troponin-I) system which g enerated this result transmit galina reference range : <=0.40. The reference r ronaldo was not used to interpr et this result as karrie l/abnormal. [facility]2016-11-18 07:30:00 Test Item Value Reference Range Interpretation Comments Troponin-T (test code 0.193 See_Comment [Auto mated message] The = Troponin-T) system which g enerated this result transmit galina reference range : <=0.100. The reference r ronaldo was not used to interpr et this result as karrie l/abnormal. [facility] Candy LabCHEM [id number] 07:30:00 Test Item Value Reference Range Interpretation Comments Lactic Acid Lvl (test code = Lactic 5.9 0.5-2.2 Acid Lvl) [facility]2016-11-18 07:30:00 Test Item Value Reference Range Interpretation Comments Troponin-I (test code 1.88 See_Comment [Auto mated message] The = Troponin-I) system which g enerated this result transmit galina reference range : <=0.40. The reference r ronaldo was not used to interpr et this result as karrie l/abnormal. [facility] [id number] 07:30:00 Test Item Value Reference Range Interpretation Comments Troponin-T (test code 0.193 See_Comment [Auto mated message] The = Troponin-T) system which g enerated this result transmit galina reference range : <=0.100. The reference r ronaldo was not used to interpr et this result as karrie l/abnormal. [facility]cosapp[facility]r [id number] 07:30:00 Test Item Value Reference Range Interpretation Comments Lactic Acid Lvl (test code = Lactic 5.9 0.5-2.2 Acid Lvl) [facility] [id number] 07:30:00 Test Item Value Reference Range Interpretation Comments Troponin-I (test code 1.88 See_Comment [Auto mated message] The = Troponin-I) system which g enerated this result transmit galina reference range : <=0.40. The reference r ronaldo was not used to interpr et this result as karrie l/abnormal. [facility] [id number] 07:30:00 Test Item Value Reference Range Interpretation Comments Troponin-T (test code 0.193 See_Comment [Auto mated message] The = Troponin-T) system which g enerated this result transmit galina reference range : <=0.100. The reference r ronaldo was not used to interpr et this result as karrie l/abnormal. [facility]cos[facility] [id number] 07:30:00 Test Item Value Reference Range Interpretation Comments Lactic Acid Lvl (test code = Lactic 5.9 0.5-2.2 Acid Lvl) [facility] [id number] 07:30:00 Test Item Value Reference Range Interpretation Comments Troponin-I (test code 1.88 See_Comment [Auto mated message] The = Troponin-I) system which g enerated this result transmit galina reference range : <=0.40. The reference r ronaldo was not used to interpr et this result as karrie l/abnormal. [facility]cosImcompanyJACK[facility] [id number] 07:30:00 Test Item Value Reference Range Interpretation Comments Troponin-T (test code 0.193 See_Comment [Auto mated message] The = Troponin-T) system which g enerated this result transmit galina reference range : <=0.100. The reference r ronaldo was not used to interpr et this result as karrie l/abnormal. [facility]2016-11-18 07:30:00 Test Item Value Reference Range Interpretation Comments Lactic Acid Lvl (test code = Lactic 5.9 0.5-2.2 Acid Lvl) [facility]2016-11-18 03:09:00 Test Item Value Reference Range Interpretation Comments Troponin-T (test code 0.351 See_Comment [Auto mated message] The = Troponin-T) system which g enerated this result transmit galina reference range : <=0.100. The reference r ronaldo was not used to interpr et this result as karrie l/abnormal. [facility] [id number] 03:09:00 Test Item Value Reference Range Interpretation Comments Troponin-I (test code 3.03 See_Comment [Auto mated message] The = Troponin-I) system which g enerated this result transmit galina reference range : <=0.40. The reference r ronaldo was not used to interpr et this result as karrie l/abnormal. [facility] [id number] 03:09:00 Test Item Value Reference Range Interpretation Comments Troponin-T (test code 0.351 See_Comment [Auto mated message] The = Troponin-T) system which g enerated this result transmit galina reference range : <=0.100. The reference r ronaldo was not used to interpr et this result as karrie l/abnormal. [facility]cosImcompanyJ[facility] [id number] 03:09:00 Test Item Value Reference Range Interpretation Comments Troponin-I (test code 3.03 See_Comment [Auto mated message] The = Troponin-I) system which g enerated this result transmit galina reference range : <=0.40. The reference r ronaldo was not used to interpr et this result as karrie l/abnormal. [facility]cosImcompanyJ[facility] [id number] 03:09:00 Test Item Value Reference Range Interpretation Comments Troponin-T (test code 0.351 See_Comment [Auto mated message] The = Troponin-T) system which g enerated this result transmit galina reference range : <=0.100. The reference r ronaldo was not used to interpr et this result as karrie l/abnormal. [facility] [id number] 03:09:00 Test Item Value Reference Range Interpretation Comments Troponin-I (test code 3.03 See_Comment [Auto mated message] The = Troponin-I) system which g enerated this result transmit galina reference range : <=0.40. The reference r ronaldo was not used to interpr et this result as karrie l/abnormal. [facility] [id number] 03:09:00 Test Item Value Reference Range Interpretation Comments Troponin-T (test code 0.351 See_Comment [Auto mated message] The = Troponin-T) system which g enerated this result transmit galina reference range : <=0.100. The reference r ronaldo was not used to interpr et this result as karrie l/abnormal. [facility] [id number] 03:09:00 Test Item Value Reference Range Interpretation Comments Troponin-I (test code 3.03 See_Comment [Auto mated message] The = Troponin-I) system which g enerated this result transmit galina reference range : <=0.40. The reference r ronaldo was not used to interpr et this result as karrie l/abnormal. [facility] [id number] 23:42:00 Test Item Value Reference Range Interpretation Comments Troponin-T (test code 0.289 See_Comment [Auto mated message] The = Troponin-T) system which g enerated this result transmit galina reference range : <=0.100. The reference r ronaldo was not used to interpr et this result as karrie l/abnormal. [facility] [id number] 23:42:00 Test Item Value Reference Range Interpretation Comments Troponin-I (test code 3.13 See_Comment [Auto mated message] The = Troponin-I) system which g enerated this result transmit galina reference range : <=0.40. The reference r ronaldo was not used to interpr et this result as karrie l/abnormal. [facility] [id number] 23:42:00 Test Item Value Reference Range Interpretation Comments Angle Rapid (test code = Angle 75 degrees 64-80 Rapid) [facility] Cent[id number] 23:42:00 Test Item Value Reference Range Interpretation Comments Max Amplitude Rapid (test code = Max 62 mm 52-71 Amplitude Rapid) [facility] CenterLrobfoaGNRIFWLUWY7527-35-43 23:42:00 Test Item Value Reference Range Interpretation Comments R-time Rapid (test code = R-time 0.7 min 0.4-0.7 Rapid) [facility] Cent[id number] 23:42:00 Test Item Value Reference Range Interpretation Comments Split Point Rapid (test code = Split 0.6 min Point Rapid) [facility] CenterArfrkkrHWGPFUEJHI7425-63-15 23:42:00 Test Item Value Reference Range Interpretation Comments K-time Rapid (test code = K-time 1.5 min 0.6-2.3 Rapid) [facility] CenterYqklsnlASPOTEIPFW2710-67-53 23:42:00 Test Item Value Reference Range Interpretation Comments ACT (TEG) Rapid (test code = ACT (TEG) 113 s 86-118 Rapid) [facility] CenterKgxudkpDISABLGULR7583-77-26 23:42:00 Test Item Value Reference Range Interpretation Comments G-value Rapid (test code = G-value 8.3 5.0-11.6 Rapid) [facility] CenterFqypgnmUEYBUXHUIO2178-64-50 23:42:00 Test Item Value Reference Range Interpretation Comments Estimated % Lysis Rapid 0.0 See_Comment [Au tomated message] The (test code = Estimated syste m which generated % Lysis Rapid) this result t ransmitted reference range : <=7.5. The reference r ronaldo was not used to int erpret this result as normal/abnormal . [facility] CenterLcygxxwKKZPFDKZLQ3955-94-11 23:42:00 Test Item Value Reference Range Interpretation Comments RBC Morph (test code = Normal (02/10/16 5:42 RBC Morph) PM) [facility] Cent[id number] 23:42:00 Test Item Value Reference Range Interpretation Comments Atypical Lymphs (test code = Atypical 0.0 Lymphs) [facility] Cent[id number] 23:42:00 Test Item Value Reference Range Interpretation Comments Bands (test code = 3.0 See_Comment [Automat ed message] The Bands) system which ge nerated this result transmit galina reference range : <=11.0. The reference r ronaldo was not used to interpr et this result as karrie l/abnormal. [facility] [id number] 23:42:00 Test Item Value Reference Range Interpretation Comments Ca Ion WB (test code = Ca Ion WB) 0.90 1.05-1.25 [facility] [id number] 23:42:00 Test Item Value Reference Range Interpretation Comments Ca Norm WB (test code = Ca Norm WB) 0.88 1.05-1.25 [facility] [id number] 23:42:00 Test Item Value Reference Range Interpretation Comments Troponin-T (test code 0.289 See_Comment [Auto mated message] The = Troponin-T) system which g enerated this result transmit galina reference range : <=0.100. The reference r ronaldo was not used to interpr et this result as karrie l/abnormal. [facility] [id number] 23:42:00 Test Item Value Reference Range Interpretation Comments Troponin-I (test code 3.13 See_Comment [Auto mated message] The = Troponin-I) system which g enerated this result transmit galina reference range : <=0.40. The reference r ronaldo was not used to interpr et this result as karrie l/abnormal. [facility] Cent[id number] 23:42:00 Test Item Value Reference Range Interpretation Comments Angle Rapid (test code = Angle 75 degrees 64-80 Rapid) [facility] CenterMbnknlzLFANHQCOPQ2614-57-67 23:42:00 Test Item Value Reference Range Interpretation Comments Max Amplitude Rapid (test code = Max 62 mm 52-71 Amplitude Rapid) [facility] CenterTuccaqoIELJSXOPFB6011-99-69 23:42:00 Test Item Value Reference Range Interpretation Comments R-time Rapid (test code = R-time 0.7 min 0.4-0.7 Rapid) [facility] CenterWlswywxWUBNRJKCFY7253-86-42 23:42:00 Test Item Value Reference Range Interpretation Comments Split Point Rapid (test code = Split 0.6 min Point Rapid) [facility] CenterBpynsmzRBBCWKSRDL2746-42-55 23:42:00 Test Item Value Reference Range Interpretation Comments K-time Rapid (test code = K-time 1.5 min 0.6-2.3 Rapid) [facility] CenterQunqsuoKDMCBKREUX0205-32-02 23:42:00 Test Item Value Reference Range Interpretation Comments ACT (TEG) Rapid (test code = ACT (TEG) 113 s 86-118 Rapid) [facility] CenterQgmnziiNIRZSFKNFS2935-47-73 23:42:00 Test Item Value Reference Range Interpretation Comments G-value Rapid (test code = G-value 8.3 5.0-11.6 Rapid) [facility] CenterDaceelsWBXZCMACER5922-47-03 23:42:00 Test Item Value Reference Range Interpretation Comments Estimated % Lysis Rapid 0.0 See_Comment [Au tomated message] The (test code = Estimated syste m which generated % Lysis Rapid) this result t ransmitted reference range : <=7.5. The reference r ronaldo was not used to int erpret this result as normal/abnormal . [facility] CenterRjlkdzrZLINSTVCQV8863-75-18 23:42:00 Test Item Value Reference Range Interpretation Comments RBC Morph (test code = Normal (02/10/16 5:42 RBC Morph) PM) [facility] CenterOssqvttYOXEIGUNHT8276-02-86 23:42:00 Test Item Value Reference Range Interpretation Comments Atypical Lymphs (test code = Atypical 0.0 Lymphs) [facility] CenterMdcmbahHGCRYYAHAV6883-59-38 23:42:00 Test Item Value Reference Range Interpretation Comments Bands (test code = 3.0 See_Comment [Automat ed message] The Bands) system which ge nerated this result transmit galina reference range : <=11.0. The reference r ronaldo was not used to interpr et this result as karrie l/abnormal. [facility]PARATHYROID [id number] 23:42:00 Test Item Value Reference Range Interpretation Comments Ca Ion WB (test code = Ca Ion WB) 0.90 1.05-1.25 [facility]PARATHYROID [id number] 23:42:00 Test Item Value Reference Range Interpretation Comments Ca Norm WB (test code = Ca Norm WB) 0.88 1.05-1.25 [facility]cosCARDIAC [id number] 23:42:00 Test Item Value Reference Range Interpretation Comments Troponin-T (test code 0.289 See_Comment [Auto mated message] The = Troponin-T) system which g enerated this result transmit galina reference range : <=0.100. The reference r ronaldo was not used to interpr et this result as karrie l/abnormal. [facility]annCARDIAC [id number] 23:42:00 Test Item Value Reference Range Interpretation Comments Troponin-I (test code 3.13 See_Comment [Auto mated message] The = Troponin-I) system which g enerated this result transmit galina reference range : <=0.40. The reference r ronaldo was not used to interpr et this result as karrie l/abnormal. [facility] CenterMfenotyUACUFWNSCJ6696-30-83 23:42:00 Test Item Value Reference Range Interpretation Comments Angle Rapid (test code = Angle 75 degrees 64-80 Rapid) [facility] CenterHeyqtfyKKYQXLJVVG1859-30-53 23:42:00 Test Item Value Reference Range Interpretation Comments Max Amplitude Rapid (test code = Max 62 mm 52-71 Amplitude Rapid) [facility] CenterPyiclxvVHLTIBQAHO9953-22-42 23:42:00 Test Item Value Reference Range Interpretation Comments R-time Rapid (test code = R-time 0.7 min 0.4-0.7 Rapid) [facility] CenterYgmjhrnHYLBUTZBNH4976-31-53 23:42:00 Test Item Value Reference Range Interpretation Comments Split Point Rapid (test code = Split 0.6 min Point Rapid) [place] [address]-11-17 23:42:00 Test Item Value Reference Range Interpretation Comments K-time Rapid (test code = K-time 1.5 min 0.6-2.3 Rapid) [facility] C[id number] 23:42:00 Test Item Value Reference Range Interpretation Comments ACT (TEG) Rapid (test code = ACT (TEG) 113 s 86-118 Rapid) [place] [id number] 23:42:00 Test Item Value Reference Range Interpretation Comments G-value Rapid (test code = G-value 8.3 5.0-11.6 Rapid) [place] [address]-11-17 23:42:00 Test Item Value Reference Range Interpretation Comments Estimated % Lysis Rapid 0.0 See_Comment [Au tomated message] The (test code = Estimated syste m which generated % Lysis Rapid) this result t ransmitted reference range : <=7.5. The reference r ronaldo was not used to int erpret this result as normal/abnormal . [facility] CenterGifwcjsSZSQLDUNEC4967-22-33 23:42:00 Test Item Value Reference Range Interpretation Comments RBC Morph (test code = Normal (02/10/16 5:42 RBC Morph) PM) [facility] Cent[id number] 23:42:00 Test Item Value Reference Range Interpretation Comments Atypical Lymphs (test code = Atypical 0.0 Lymphs) [facility] Cent[id number] 23:42:00 Test Item Value Reference Range Interpretation Comments Bands (test code = 3.0 See_Comment [Automat ed message] The Bands) system which ge nerated this result transmit galina reference range : <=11.0. The reference r ronaldo was not used to interpr et this result as karrie l/abnormal. [facility]2016-11-17 23:42:00 Test Item Value Reference Range Interpretation Comments Ca Ion WB (test code = Ca Ion WB) 0.90 1.05-1.25 [facility]2016-11-17 23:42:00 Test Item Value Reference Range Interpretation Comments Ca Norm WB (test code = Ca Norm WB) 0.88 1.05-1.25 [facility]2016-11-17 23:42:00 Test Item Value Reference Range Interpretation Comments Troponin-T (test code 0.289 See_Comment [Auto mated message] The = Troponin-T) system which g enerated this result transmit galina reference range : <=0.100. The reference r ronaldo was not used to interpr et this result as karrie l/abnormal. [facility]2016-11-17 23:42:00 Test Item Value Reference Range Interpretation Comments Troponin-I (test code 3.13 See_Comment [Auto mated message] The = Troponin-I) system which g enerated this result transmit galina reference range : <=0.40. The reference r ronaldo was not used to interpr et this result as karrie l/abnormal. [facility] CenterQgtjibdVWNPZBIBHY2768-94-77 23:42:00 Test Item Value Reference Range Interpretation Comments Angle Rapid (test code = Angle 75 degrees 64-80 Rapid) [facility] Cent[id number] 23:42:00 Test Item Value Reference Range Interpretation Comments Max Amplitude Rapid (test code = Max 62 mm 52-71 Amplitude Rapid) [facility] CenterAxmvsgsFGFKEKJELE0934-23-72 23:42:00 Test Item Value Reference Range Interpretation Comments R-time Rapid (test code = R-time 0.7 min 0.4-0.7 Rapid) [facility] CenterPgjzgkwEKODSZJWPM5638-22-54 23:42:00 Test Item Value Reference Range Interpretation Comments Split Point Rapid (test code = Split 0.6 min Point Rapid) [facility] CenterPybhwjaKRQCCWIKBH3679-37-31 23:42:00 Test Item Value Reference Range Interpretation Comments K-time Rapid (test code = K-time 1.5 min 0.6-2.3 Rapid) [facility] CenterNatmvbwQKMVINPCSQ3954-62-08 23:42:00 Test Item Value Reference Range Interpretation Comments ACT (TEG) Rapid (test code = ACT (TEG) 113 s 86-118 Rapid) [facility] CenterOavmzgoLCFICTJZBS4462-54-90 23:42:00 Test Item Value Reference Range Interpretation Comments G-value Rapid (test code = G-value 8.3 5.0-11.6 Rapid) [address]11-17 23:42:00 Test Item Value Reference Range Interpretation Comments Estimated % Lysis Rapid 0.0 See_Comment [Au tomated message] The (test code = Estimated syste m which generated % Lysis Rapid) this result t ransmitted reference range : <=7.5. The reference r ronaldo was not used to int erpret this result as normal/abnormal . [facility] Cent[id number] 23:42:00 Test Item Value Reference Range Interpretation Comments RBC Morph (test code = Normal (02/10/16 5:42 RBC Morph) PM) [place] [address]-11-17 23:42:00 Test Item Value Reference Range Interpretation Comments Atypical Lymphs (test code = Atypical 0.0 Lymphs) [facility] Cent[id number] 23:42:00 Test Item Value Reference Range Interpretation Comments Bands (test code = 3.0 See_Comment [Automat ed message] The Bands) system which ge nerated this result transmit galina reference range : <=11.0. The reference r ronaldo was not used to interpr et this result as karrie l/abnormal. [facility]RO[facility] [id number] 23:42:00 Test Item Value Reference Range Interpretation Comments Ca Ion WB (test code = Ca Ion WB) 0.90 1.05-1.25 [facility] CenterROID [id number] 23:42:00 Test Item Value Reference Range Interpretation Comments Ca Norm WB (test code = Ca Norm WB) 0.88 1.05-1.25 [facility] [id number] 21:15:00 Test Item Value Reference Range Interpretation Comments U Benzodia Scr (test Positive code = U Benzodia Scr) *ABN*(02/10/16 3:15 PM) [facility] [id number] 21:15:00 Test Item Value Reference Range Interpretation Comments U Cannab Scr (test Negative *NA*(02/10/16 code = U Cannab Scr) 3:15 PM) [facility] [id number] 21:15:00 Test Item Value Reference Range Interpretation Comments U Cocaine Scr (test Negative *NA*(02/10/16 code = U Cocaine Scr) 3:15 PM) [facility] [id number] 21:15:00 Test Item Value Reference Range Interpretation Comments U Freda Scr (test code Negative *NA*(02/10/16 = U Freda Scr) 3:15 PM) [facility] [id number] 21:15:00 Test Item Value Reference Range Interpretation Comments U Opiate Scr (test Negative *NA*(02/10/16 code = U Opiate Scr) 3:15 PM) [facility] [id number] 21:15:00 Test Item Value Reference Range Interpretation Comments U Phencyc Scr (test Negative *NA*(02/10/16 code = U Phencyc Scr) 3:15 PM) [facility] [id number] 21:15:00 Test Item Value Reference Range Interpretation Comments UDS Note (test code = See Note (02/10/16 3:15 UDS Note) PM) [facility] [id number] 21:15:00 Test Item Value Reference Range Interpretation Comments U Amph Scr (test code Negative *NA*(02/10/16 = U Amph Scr) 3:15 PM) [facility] [id number] 21:15:00 Test Item Value Reference Range Interpretation Comments UA Color (test code = Yellow *NA*(02/10/16 UA Color) 3:15 PM) [facility] [id number] 21:15:00 Test Item Value Reference Range Interpretation Comments UA Blood (test code = Trace *ABN*(02/10/16 UA Blood) 3:15 PM) [facility] AND [id number] 21:15:00 Test Item Value Reference Range Interpretation Comments UA Urobilinogen (test code = UA 0.2 0.1-1.0 Urobilinogen) [facility] AND [id number] 21:15:00 Test Item Value Reference Range Interpretation Comments UA Ketones (test code Negative *NA*(02/10/16 = UA Ketones) 3:15 PM) [facility] AND [id number] 21:15:00 Test Item Value Reference Range Interpretation Comments UA Bili (test code = Negative *NA*(02/10/16 UA Bili) 3:15 PM) [facility] AND [id number] 21:15:00 Test Item Value Reference Range Interpretation Comments UA Turbidity (test code = Clear (02/10/16 3:15 UA Turbidity) PM) [facility] AND [id number] 21:15:00 Test Item Value Reference Range Interpretation Comments UA Nitrite (test code Negative (02/10/16 3:15 = UA Nitrite) PM) [facility] AND [id number] 21:15:00 Test Item Value Reference Range Interpretation Comments UA Amorph Carola (test code = Occasional /HPF UA Amorph Carola) [facility] AND [id number] 21:15:00 Test Item Value Reference Range Interpretation Comments UA Mucus (test code = UA Mucus) Few /LPF [facility] AND [id number] 21:15:00 Test Item Value Reference Range Interpretation Comments UA Sq Epi (test code = None Seen (02/10/16 UA Sq Epi) 3:15 PM) [facility] AND [id number] 21:15:00 Test Item Value Reference Range Interpretation Comments UA Leuk Est (test Negative (02/10/16 3:15 code = UA Leuk Est) PM) [facility] AND [id number] 21:15:00 Test Item Value Reference Range Interpretation Comments UA Glucose (test code = UA Glucose) 250 mg/dL [facility] AND [id number] 21:15:00 Test Item Value Reference Range Interpretation Comments UA Spec Grav (test code = UA Spec 1.005 1 Grav) [facility] [id number] 21:15:00 Test Item Value Reference Range Interpretation Comments UA pH (test code = UA pH) 7.0 1 5.0-8.0 [facility] [id number] 21:15:00 Test Item Value Reference Range Interpretation Comments UA WBC (test code = UA WBC) 0-1 [facility] [id number] 21:15:00 Test Item Value Reference Range Interpretation Comments UA RBC (test code = 0-2 /HPF See_Comment [Automa galina message] The UA RBC) system which ge nerated this result tra nsmitted reference range : <=2. The reference range was not used to interpr et this result as karrie l/abnormal. [facility] [id number] 21:15:00 Test Item Value Reference Range Interpretation Comments UA Bacteria (test code = None Seen (02/10/16 UA Bacteria) 3:15 PM) [facility] [id number] 21:15:00 Test Item Value Reference Range Interpretation Comments UA Protein (test code = Trace *ABN*(02/10/16 UA Protein) 3:15 PM) [facility] [id number] 21:15:00 Test Item Value Reference Range Interpretation Comments U Benzodia Scr (test Positive code = U Benzodia Scr) *ABN*(02/10/16 3:15 PM) [facility] [id number] 21:15:00 Test Item Value Reference Range Interpretation Comments U Cannab Scr (test Negative *NA*(02/10/16 code = U Cannab Scr) 3:15 PM) [facility] [id number] 21:15:00 Test Item Value Reference Range Interpretation Comments U Cocaine Scr (test Negative *NA*(02/10/16 code = U Cocaine Scr) 3:15 PM) [facility] [id number] 21:15:00 Test Item Value Reference Range Interpretation Comments U Freda Scr (test code Negative *NA*(02/10/16 = U Freda Scr) 3:15 PM) [facility] [id number] 21:15:00 Test Item Value Reference Range Interpretation Comments U Opiate Scr (test Negative *NA*(02/10/16 code = U Opiate Scr) 3:15 PM) [facility] [id number] 21:15:00 Test Item Value Reference Range Interpretation Comments U Phencyc Scr (test Negative *NA*(02/10/16 code = U Phencyc Scr) 3:15 PM) [facility] [id number] 21:15:00 Test Item Value Reference Range Interpretation Comments UDS Note (test code = See Note (02/10/16 3:15 UDS Note) PM) [facility] [id number] 21:15:00 Test Item Value Reference Range Interpretation Comments U Amph Scr (test code Negative *NA*(02/10/16 = U Amph Scr) 3:15 PM) [facility] [id number] 21:15:00 Test Item Value Reference Range Interpretation Comments UA Color (test code = Yellow *NA*(02/10/16 UA Color) 3:15 PM) [facility] [id number] 21:15:00 Test Item Value Reference Range Interpretation Comments UA Blood (test code = Trace *ABN*(02/10/16 UA Blood) 3:15 PM) [facility] [id number] 21:15:00 Test Item Value Reference Range Interpretation Comments UA Urobilinogen (test code = UA 0.2 0.1-1.0 Urobilinogen) [facility] [id number] 21:15:00 Test Item Value Reference Range Interpretation Comments UA Ketones (test code Negative *NA*(02/10/16 = UA Ketones) 3:15 PM) [facility] [id number] 21:15:00 Test Item Value Reference Range Interpretation Comments UA Bili (test code = Negative *NA*(02/10/16 UA Bili) 3:15 PM) [facility] [id number] 21:15:00 Test Item Value Reference Range Interpretation Comments UA Turbidity (test code = Clear (02/10/16 3:15 UA Turbidity) PM) [facility] [id number] 21:15:00 Test Item Value Reference Range Interpretation Comments UA Nitrite (test code Negative (02/10/16 3:15 = UA Nitrite) PM) [facility] [id number] 21:15:00 Test Item Value Reference Range Interpretation Comments UA Amorph Carola (test code = Occasional /HPF UA Amorph Carola) [facility] AND [id number] 21:15:00 Test Item Value Reference Range Interpretation Comments UA Mucus (test code = UA Mucus) Few /LPF [facility] AND [id number] 21:15:00 Test Item Value Reference Range Interpretation Comments UA Sq Epi (test code = None Seen (02/10/16 UA Sq Epi) 3:15 PM) [facility] AND [id number] 21:15:00 Test Item Value Reference Range Interpretation Comments UA Leuk Est (test Negative (02/10/16 3:15 code = UA Leuk Est) PM) [facility] AND [id number] 21:15:00 Test Item Value Reference Range Interpretation Comments UA Glucose (test code = UA Glucose) 250 mg/dL [facility] AND [id number] 21:15:00 Test Item Value Reference Range Interpretation Comments UA Spec Grav (test code = UA Spec 1.005 1 Grav) [facility] AND [id number] 21:15:00 Test Item Value Reference Range Interpretation Comments UA pH (test code = UA pH) 7.0 1 5.0-8.0 [facility] AND [id number] 21:15:00 Test Item Value Reference Range Interpretation Comments UA WBC (test code = UA WBC) 0-1 [facility] AND [id number] 21:15:00 Test Item Value Reference Range Interpretation Comments UA RBC (test code = 0-2 /HPF See_Comment [Automa galina message] The UA RBC) system which ge nerated this result tra nsmitted reference range : <=2. The reference range was not used to interpr et this result as karrie l/abnormal. [facility] AND [id number] 21:15:00 Test Item Value Reference Range Interpretation Comments UA Bacteria (test code = None Seen (02/10/16 UA Bacteria) 3:15 PM) [facility] AND [id number] 21:15:00 Test Item Value Reference Range Interpretation Comments UA Protein (test code = Trace *ABN*(02/10/16 UA Protein) 3:15 PM) [facility] [id number] 21:15:00 Test Item Value Reference Range Interpretation Comments U Benzodia Scr (test Positive code = U Benzodia Scr) *ABN*(02/10/16 3:15 PM) [facility] [id number] 21:15:00 Test Item Value Reference Range Interpretation Comments U Cannab Scr (test Negative *NA*(02/10/16 code = U Cannab Scr) 3:15 PM) [facility] [id number] 21:15:00 Test Item Value Reference Range Interpretation Comments U Cocaine Scr (test Negative *NA*(02/10/16 code = U Cocaine Scr) 3:15 PM) [facility] [id number] 21:15:00 Test Item Value Reference Range Interpretation Comments U Freda Scr (test code Negative *NA*(02/10/16 = U Freda Scr) 3:15 PM) [facility] [id number] 21:15:00 Test Item Value Reference Range Interpretation Comments U Opiate Scr (test Negative *NA*(02/10/16 code = U Opiate Scr) 3:15 PM) [facility] [id number] 21:15:00 Test Item Value Reference Range Interpretation Comments U Phencyc Scr (test Negative *NA*(02/10/16 code = U Phencyc Scr) 3:15 PM) [facility] [id number] 21:15:00 Test Item Value Reference Range Interpretation Comments UDS Note (test code = See Note (02/10/16 3:15 UDS Note) PM) [facility] [id number] 21:15:00 Test Item Value Reference Range Interpretation Comments U Amph Scr (test code Negative *NA*(02/10/16 = U Amph Scr) 3:15 PM) [facility] [id number] 21:15:00 Test Item Value Reference Range Interpretation Comments UA Color (test code = Yellow *NA*(02/10/16 UA Color) 3:15 PM) [facility] [id number] 21:15:00 Test Item Value Reference Range Interpretation Comments UA Blood (test code = Trace *ABN*(02/10/16 UA Blood) 3:15 PM) [facility] [id number] 21:15:00 Test Item Value Reference Range Interpretation Comments UA Urobilinogen (test code = UA 0.2 0.1-1.0 Urobilinogen) [facility] [id number] 21:15:00 Test Item Value Reference Range Interpretation Comments UA Ketones (test code Negative *NA*(02/10/16 = UA Ketones) 3:15 PM) [facility] [id number] 21:15:00 Test Item Value Reference Range Interpretation Comments UA Bili (test code = Negative *NA*(02/10/16 UA Bili) 3:15 PM) [facility] [id number] 21:15:00 Test Item Value Reference Range Interpretation Comments UA Turbidity (test code = Clear (02/10/16 3:15 UA Turbidity) PM) [facility] AND [id number] 21:15:00 Test Item Value Reference Range Interpretation Comments UA Nitrite (test code Negative (02/10/16 3:15 = UA Nitrite) PM) [facility] AND [id number] 21:15:00 Test Item Value Reference Range Interpretation Comments UA Amorph Carola (test code = Occasional /HPF UA Amorph Carola) [facility] AND [id number] 21:15:00 Test Item Value Reference Range Interpretation Comments UA Mucus (test code = UA Mucus) Few /LPF [facility] AND [id number] 21:15:00 Test Item Value Reference Range Interpretation Comments UA Sq Epi (test code = None Seen (02/10/16 UA Sq Epi) 3:15 PM) [facility] AND [id number] 21:15:00 Test Item Value Reference Range Interpretation Comments UA Leuk Est (test Negative (02/10/16 3:15 code = UA Leuk Est) PM) [facility] AND [id number] 21:15:00 Test Item Value Reference Range Interpretation Comments UA Glucose (test code = UA Glucose) 250 mg/dL [facility] AND [id number] 21:15:00 Test Item Value Reference Range Interpretation Comments UA Spec Grav (test code = UA Spec 1.005 1 Grav) [facility] AND [id number] 21:15:00 Test Item Value Reference Range Interpretation Comments UA pH (test code = UA pH) 7.0 1 5.0-8.0 [facility] [id number] 21:15:00 Test Item Value Reference Range Interpretation Comments UA WBC (test code = UA WBC) 0-1 [facility] [id number] 21:15:00 Test Item Value Reference Range Interpretation Comments UA RBC (test code = 0-2 /HPF See_Comment [Automa galina message] The UA RBC) system which ge nerated this result tra nsmitted reference range : <=2. The reference range was not used to interpr et this result as karire l/abnormal. [facility] [id number] 21:15:00 Test Item Value Reference Range Interpretation Comments UA Bacteria (test code = None Seen (02/10/16 UA Bacteria) 3:15 PM) [facility] [id number] 21:15:00 Test Item Value Reference Range Interpretation Comments UA Protein (test code = Trace *ABN*(02/10/16 UA Protein) 3:15 PM) [facility] [id number] 21:15:00 Test Item Value Reference Range Interpretation Comments U Benzodia Scr (test Positive code = U Benzodia Scr) *ABN*(02/10/16 3:15 PM) [facility] [id number] 21:15:00 Test Item Value Reference Range Interpretation Comments U Cannab Scr (test Negative *NA*(02/10/16 code = U Cannab Scr) 3:15 PM) [facility] [id number] 21:15:00 Test Item Value Reference Range Interpretation Comments U Cocaine Scr (test Negative *NA*(02/10/16 code = U Cocaine Scr) 3:15 PM) [facility] [id number] 21:15:00 Test Item Value Reference Range Interpretation Comments U Freda Scr (test code Negative *NA*(02/10/16 = U Freda Scr) 3:15 PM) [facility] [id number] 21:15:00 Test Item Value Reference Range Interpretation Comments U Opiate Scr (test Negative *NA*(02/10/16 code = U Opiate Scr) 3:15 PM) [facility] [id number] 21:15:00 Test Item Value Reference Range Interpretation Comments U Phencyc Scr (test Negative *NA*(02/10/16 code = U Phencyc Scr) 3:15 PM) [facility] [id number] 21:15:00 Test Item Value Reference Range Interpretation Comments UDS Note (test code = See Note (02/10/16 3:15 UDS Note) PM) [facility] [id number] 21:15:00 Test Item Value Reference Range Interpretation Comments U Amph Scr (test code Negative *NA*(02/10/16 = U Amph Scr) 3:15 PM) [facility] [id number] 21:15:00 Test Item Value Reference Range Interpretation Comments UA Color (test code = Yellow *NA*(02/10/16 UA Color) 3:15 PM) [facility] [id number] 21:15:00 Test Item Value Reference Range Interpretation Comments UA Blood (test code = Trace *ABN*(02/10/16 UA Blood) 3:15 PM) [facility] [id number] 21:15:00 Test Item Value Reference Range Interpretation Comments UA Urobilinogen (test code = UA 0.2 0.1-1.0 Urobilinogen) [facility] [id number] 21:15:00 Test Item Value Reference Range Interpretation Comments UA Ketones (test code Negative *NA*(02/10/16 = UA Ketones) 3:15 PM) [facility] [id number] 21:15:00 Test Item Value Reference Range Interpretation Comments UA Bili (test code = Negative *NA*(02/10/16 UA Bili) 3:15 PM) [facility] [id number] 21:15:00 Test Item Value Reference Range Interpretation Comments UA Turbidity (test code = Clear (02/10/16 3:15 UA Turbidity) PM) [facility] [id number] 21:15:00 Test Item Value Reference Range Interpretation Comments UA Nitrite (test code Negative (02/10/16 3:15 = UA Nitrite) PM) [facility] [id number] 21:15:00 Test Item Value Reference Range Interpretation Comments UA Amorph Carola (test code = Occasional /HPF UA Amorph Carola) [facility] AND [id number] 21:15:00 Test Item Value Reference Range Interpretation Comments UA Mucus (test code = UA Mucus) Few /LPF [facility] AND [id number] 21:15:00 Test Item Value Reference Range Interpretation Comments UA Sq Epi (test code = None Seen (02/10/16 UA Sq Epi) 3:15 PM) [facility] AND [id number] 21:15:00 Test Item Value Reference Range Interpretation Comments UA Leuk Est (test Negative (02/10/16 3:15 code = UA Leuk Est) PM) [facility] AND [id number] 21:15:00 Test Item Value Reference Range Interpretation Comments UA Glucose (test code = UA Glucose) 250 mg/dL [facility] AND [id number] 21:15:00 Test Item Value Reference Range Interpretation Comments UA Spec Grav (test code = UA Spec 1.005 1 Grav) [facility] AND [id number] 21:15:00 Test Item Value Reference Range Interpretation Comments UA pH (test code = UA pH) 7.0 1 5.0-8.0 [facility] AND [id number] 21:15:00 Test Item Value Reference Range Interpretation Comments UA WBC (test code = UA WBC) 0-1 [facility] AND [id number] 21:15:00 Test Item Value Reference Range Interpretation Comments UA RBC (test code = 0-2 /HPF See_Comment [Automa galina message] The UA RBC) system which ge nerated this result tra nsmitted reference range : <=2. The reference range was not used to interpr et this result as karrie l/abnormal. [facility] AND [id number] 21:15:00 Test Item Value Reference Range Interpretation Comments UA Bacteria (test code = None Seen (02/10/16 UA Bacteria) 3:15 PM) [facility] AND [id number] 21:15:00 Test Item Value Reference Range Interpretation Comments UA Protein (test code = Trace *ABN*(02/10/16 UA Protein) 3:15 PM) [facility] BANK [id number] 19:26:00 Test Item Value Reference Range Interpretation Comments FFP product (test code Product available = FFP product) (02/10/16 1:26 PM) [facility] BANK [id number] 19:26:00 Test Item Value Reference Range Interpretation Comments FFP product (test code Product available = FFP product) (02/10/16 1:26 PM) [facility] BANK [id number] 19:26:00 Test Item Value Reference Range Interpretation Comments FFP product (test code Product available = FFP product) (02/10/16 1:26 PM) [facility] BANK [id number] 19:26:00 Test Item Value Reference Range Interpretation Comments FFP product (test code Product available = FFP product) (02/10/16 1:26 PM) [facility] [id number] 18:20:00 Test Item Value Reference Range Interpretation Comments Lactic Acid Lvl (test code = Lactic 1.6 0.5-2.2 Acid Lvl) [id number] 18:20:00 Test Item Value Reference Range Interpretation Comments S Preg (test code = S Negative (02/10/16 12:20 Preg) PM) [facility] [id number] 18:20:00 Test Item Value Reference Range Interpretation Comments Estimated % Lysis Rapid 0.0 See_Comment [Au tomated message] The (test code = Estimated syste m which generated % Lysis Rapid) this result t ransmitted reference range : <=7.5. The reference r ronaldo was not used to int erpret this result as normal/abnormal . [facility] [id number] 18:20:00 Test Item Value Reference Range Interpretation Comments K-time Rapid (test code = K-time 1.5 min 0.6-2.3 Rapid) [facility] [id number] 18:20:00 Test Item Value Reference Range Interpretation Comments R-time Rapid (test code = R-time 0.5 min 0.4-0.7 Rapid) [facility] [id number] 18:20:00 Test Item Value Reference Range Interpretation Comments G-value Rapid (test code = G-value 10.2 5.0-11.6 Rapid) [facility] [id number] 18:20:00 Test Item Value Reference Range Interpretation Comments Angle Rapid (test code = Angle 73 degrees 64-80 Rapid) [facility] [id number] 18:20:00 Test Item Value Reference Range Interpretation Comments Max Amplitude Rapid (test code = Max 67 mm 52-71 Amplitude Rapid) [facility] [id number] 18:20:00 Test Item Value Reference Range Interpretation Comments ACT (TEG) Rapid (test code = ACT (TEG) 97 s 86-118 Rapid) [facility] [id number] 18:20:00 Test Item Value Reference Range Interpretation Comments Split Point Rapid (test code = Split 0.3 min Point Rapid) [place] [id number] 18:20:00 Test Item Value Reference Range Interpretation Comments Etoh (%) (test code = Etoh (%)) no gt [id number] 18:20:00 Test Item Value Reference Range Interpretation Comments Ethanol Lvl (test code = Ethanol Lvl) no gt [facility]cosCHEM [id number] 18:20:00 Test Item Value Reference Range Interpretation Comments Lactic Acid Lvl (test code = Lactic 1.6 0.5-2.2 Acid Lvl) [id number] 18:20:00 Test Item Value Reference Range Interpretation Comments S Preg (test code = S Negative (02/10/16 12:20 Preg) PM) [facility] [id number] 18:20:00 Test Item Value Reference Range Interpretation Comments Estimated % Lysis Rapid 0.0 See_Comment [Au tomated message] The (test code = Estimated syste m which generated % Lysis Rapid) this result t ransmitted reference range : <=7.5. The reference r ronaldo was not used to int erpret this result as normal/abnormal . [facility] [id number] 18:20:00 Test Item Value Reference Range Interpretation Comments K-time Rapid (test code = K-time 1.5 min 0.6-2.3 Rapid) [facility] [id number] 18:20:00 Test Item Value Reference Range Interpretation Comments R-time Rapid (test code = R-time 0.5 min 0.4-0.7 Rapid) [facility] [id number] 18:20:00 Test Item Value Reference Range Interpretation Comments G-value Rapid (test code = G-value 10.2 5.0-11.6 Rapid) [facility] [id number] 18:20:00 Test Item Value Reference Range Interpretation Comments Angle Rapid (test code = Angle 73 degrees 64-80 Rapid) [facility] [id number] 18:20:00 Test Item Value Reference Range Interpretation Comments Max Amplitude Rapid (test code = Max 67 mm 52-71 Amplitude Rapid) [facility] [id number] 18:20:00 Test Item Value Reference Range Interpretation Comments ACT (TEG) Rapid (test code = ACT (TEG) 97 s 86-118 Rapid) [facility] Cent[id number] 18:20:00 Test Item Value Reference Range Interpretation Comments Split Point Rapid (test code = Split 0.3 min Point Rapid) [facility] [id number] 18:20:00 Test Item Value Reference Range Interpretation Comments Etoh (%) (test code = Etoh (%)) no gt [facility]cosVeqorscIMFACOWEFO8813-26-02 18:20:00 Test Item Value Reference Range Interpretation Comments Ethanol Lvl (test code = Ethanol Lvl) no gt [facility]cosCHEM [id number] 18:20:00 Test Item Value Reference Range Interpretation Comments Lactic Acid Lvl (test code = Lactic 1.6 0.5-2.2 Acid Lvl) [facility] Marc[id number] 18:20:00 Test Item Value Reference Range Interpretation Comments S Preg (test code = S Negative (02/10/16 12:20 Preg) PM) [facility] [id number] 18:20:00 Test Item Value Reference Range Interpretation Comments Estimated % Lysis Rapid 0.0 See_Comment [Au tomated message] The (test code = Estimated syste m which generated % Lysis Rapid) this result t ransmitted reference range : <=7.5. The reference r ronaldo was not used to int erpret this result as normal/abnormal . [facility] [id number] 18:20:00 Test Item Value Reference Range Interpretation Comments K-time Rapid (test code = K-time 1.5 min 0.6-2.3 Rapid) [facility] CenterVmwatypYGFIJCOWDZ8831-56-73 18:20:00 Test Item Value Reference Range Interpretation Comments R-time Rapid (test code = R-time 0.5 min 0.4-0.7 Rapid) [facility] [id number] 18:20:00 Test Item Value Reference Range Interpretation Comments G-value Rapid (test code = G-value 10.2 5.0-11.6 Rapid) [facility] C[id number] 18:20:00 Test Item Value Reference Range Interpretation Comments Angle Rapid (test code = Angle 73 degrees 64-80 Rapid) [facility] CenterGqeyhutAKYFCGEYRT3000-92-09 18:20:00 Test Item Value Reference Range Interpretation Comments Max Amplitude Rapid (test code = Max 67 mm 52-71 Amplitude Rapid) [facility] C[id number] 18:20:00 Test Item Value Reference Range Interpretation Comments ACT (TEG) Rapid (test code = ACT (TEG) 97 s 86-118 Rapid) [facility] CenterCkldhbnKKQMCELHLT5812-88-29 18:20:00 Test Item Value Reference Range Interpretation Comments Split Point Rapid (test code = Split 0.3 min Point Rapid) [facility]cosRvhonblNSRKGMYWAW6565-53-03 18:20:00 Test Item Value Reference Range Interpretation Comments Etoh (%) (test code = Etoh (%)) no [facility] CenterEzhgyvnHRGARINZLL8586-27-21 18:20:00 Test Item Value Reference Range Interpretation Comments Ethanol Lvl (test code = Ethanol Lvl) no [facility]CHE[facility] [id number] 18:20:00 Test Item Value Reference Range Interpretation Comments Lactic Acid Lvl (test code = Lactic 1.6 0.5-2.2 Acid Lvl) [facility]cosXqmixzkVWLMFDFCBJBBF4224-49-30 18:20:00 Test Item Value Reference Range Interpretation Comments S Preg (test code = S Negative (02/10/16 12:20 Preg) PM) [facility] CenterZqynnreMYKAMQDTEB9235-10-05 18:20:00 Test Item Value Reference Range Interpretation Comments Estimated % Lysis Rapid 0.0 See_Comment [Au tomated message] The (test code = Estimated syste m which generated % Lysis Rapid) this result t ransmitted reference range : <=7.5. The reference r ronaldo was not used to int erpret this result as normal/abnormal . [facility] CenterOtrooebJGEFKOMMNA9492-92-08 18:20:00 Test Item Value Reference Range Interpretation Comments K-time Rapid (test code = K-time 1.5 min 0.6-2.3 Rapid) [facility] CenterCxvcxxlTBCQDXVXRK1363-51-23 18:20:00 Test Item Value Reference Range Interpretation Comments R-time Rapid (test code = R-time 0.5 min 0.4-0.7 Rapid) [facility] CenterWyzlnzbDMRGLCKWHJ7879-20-72 18:20:00 Test Item Value Reference Range Interpretation Comments G-value Rapid (test code = G-value 10.2 5.0-11.6 Rapid) [facility] CenterZwkcqdkCJIJPQWUQJ0924-08-22 18:20:00 Test Item Value Reference Range Interpretation Comments Angle Rapid (test code = Angle 73 degrees 64-80 Rapid) [facility] CenterOopdogrSZADLLCKSO1736-11-80 18:20:00 Test Item Value Reference Range Interpretation Comments Max Amplitude Rapid (test code = Max 67 mm 52-71 Amplitude Rapid) [facility] C[id number] 18:20:00 Test Item Value Reference Range Interpretation Comments ACT (TEG) Rapid (test code = ACT (TEG) 97 s 86-118 Rapid) [facility] CenterLsocnicSZKKXFRJSX2800-01-99 18:20:00 Test Item Value Reference Range Interpretation Comments Split Point Rapid (test code = Split 0.3 min Point Rapid) [facility]cosKfddmweGDUUJBLJOR6289-62-84 18:20:00 Test Item Value Reference Range Interpretation Comments Etoh (%) (test code = Etoh (%)) no gt [facility] MarcosZctsakhKCAPNTFAFJ2492-88-60 18:20:00 Test Item Value Reference Range Interpretation Comments Ethanol Lvl (test code = Ethanol Lvl) no gt [facility] [id number] 18:17:00 Test Item Value Reference Range Interpretation Comments ABO/Rh (test code = ABO/Rh) O POS [facility] [id number] 18:17:00 Test Item Value Reference Range Interpretation Comments Antibody Scrn (test Negative (02/10/16 code = Antibody Scrn) 12:17 PM) [facility] [id number] 18:17:00 Test Item Value Reference Range Interpretation Comments ABO/Rh (test code = ABO/Rh) O POS [facility] [employer] [id number] 18:17:00 Test Item Value Reference Range Interpretation Comments Antibody Scrn (test Negative (02/10/16 code = Antibody Scrn) 12:17 PM) [facility] [employer] [id number] 18:17:00 Test Item Value Reference Range Interpretation Comments ABO/Rh (test code = ABO/Rh) O POS [facility] [employer] [id number] 18:17:00 Test Item Value Reference Range Interpretation Comments Antibody Scrn (test Negative (02/10/16 code = Antibody Scrn) 12:17 PM) [employer] [id number] 18:17:00 Test Item Value Reference Range Interpretation Comments ABO/Rh (test code = ABO/Rh) O POS [facility] [employer] [id number] 18:17:00 Test Item Value Reference Range Interpretation Comments Antibody Scrn (test Negative (02/10/16 code = Antibody Scrn) 12:17 PM) [facility] Notes Date/Time Note Provider Source 2016-03-17 EXAM: CTA CHEST WITH CONTRAST [facility] 12:00:00-00:00 EXAM: CTA ABDOMEN AND PELVIS WITH CONTRAST [place] DATE: 03/16/2016 1:07 PM [employer] INDICATION: Blunt trauma. Evaluate for traumatic aortic injury. COMPARISON: CT chest abdomen pelvis dated 2015. TECHNIQUE: Volumetric CT acq uisition of the chest, abdomen and pelvis during the intravenous infusion of contrast in arterial phase. Axial, coronal and sagittal reconstructions, along with MIP reconstru ctions, are created at the acquisition workstati on. DLP: 2525.0 mGy-cm FINDINGS: AORTA: The aorta is measures: 2.9 cm at the ascending aorta at the level of th e pulmonary artery, 2.2 cm at the mid arch, 2.7 cm at the descending aorta at the level of t he main pulmonary artery, 2.2 cm at the level of the aortic hiatus, 1.4 cm at the level of the renal arteries, and 1.4 cm just proximal to the iliac bifurcation. There is minimal atheroscler otic calcification of the abdominal aorta. The branching pattern is unremarkable. No dissection or pseudoaneurysm. Lines and tubes: A tracheost iram is in place. A PEG tube is identified with with balloon a PEG tube is adequately place with balloon inflated within the gastric lumen. Lungs and pleura: There is m ild bilateral subsegmental atelectasis in the lung bases. Tiny residual pulmonary contusion is identified. Hearth and mediastinum: Heart size is normal siz e. No pericardial effusion. Hepatobiliary: Recently iden tified focal hypodensity in the anterior margin of the left hepatic lobe is not clearly seen on this exam. No focal hepatic lesions. Gallbladder: Unremarkable. Spleen: Unremarkable. Pancreas: Unremarkable. Adrenals: Unremarkable. Kidneys: Unremarkable. Bladder: Bowel: Normal caliber. No ab normal wall thickening. There is a large amount of fecal material within the distended rectum. Moderate amount of stool is also seen throughout the colon. Mesentery: Bones: L and transverse proc ess fracture is unchanged in appearance. A comminuted left scapular fracture is again identified. Bilateral clavicular fractures are redemonstrated. There is been interval he aling with callus formation of the bilateral 1st through 7th rib fractures. Right manubrial body fracture is also redemonstrated. Soft tissues: Foci subcutane ous emphysema seen along the PEG tube. Multiple foci subcutaneous emphysema is seen along the anterior lower abdomen likely related to medication injection sites. IMPRESSION: 1. No traumatic aortic injury is identified. 2. Interval mild healing of bilateral rib fractures, right manubrial body, left scapular, and left L1 transverse process fractures. 3. Tiny residual pulmonary contusion in the left upper lobe. 2016-03-08 EXAM: XR LEFT KNEE 3 VIEWS [facility] 14:02:00-00:00 DATE: 03/08/2016 9:34 AM [employer] [address] INDICATION: Pain and swelling COMPARISON: None TECHNIQUE: 3 views of the knee FINDINGS: No significant degenerative changes. Mild marginal osteophyte along the lateral compartment. No joint effusion. No fracture or dislocation. No osseous lesion. IMPRESSION: 1. No evidence of acute osse ous abnormality. No fractures. No significant degenerative joint disease. 2016-03-08 EXAM: XR LEFT SCAPULA 2 VIEWS [facility] 14:02:00-00:00 DATE: 03/08/2016 9:34 AM MET[employer] [address] [facility] INDICATION: Scapular fracture COMPARISON: 02/12/2016 TECHNIQUE: AP and lateral views of the left scap jennifer FINDINGS: Comminuted left sc apular body fracture is present with lateral displacement of the distal fragment. A displaced fracture of the root of the acromion is present with surrounding callus formatio n. There is no involvement o f the glenoid articular surface or the remainder of the scapular spine. Distal clavicular fracture also demonstrates early healing. Glenohumeral joint remains aligned. Left rib fractures are again noted. Soft tissue swelling persists. There is resoluti on of subcutaneous emphysema. IMPRESSION: 1. Displaced left scapular b pascual fracture, and fracture of the root of the acromion with early healing. 2. Distal clavicular fracture also demonstrating early healing. 2016-03-08 EXAM: XR LEFT CLAVICLE 2 VIEWS [facility] 14:02:00-00:00 DATE: 03/08/2016 9:34 AM [employer] [place] [address] INDICATION: Fracture COMPARISON: 02/14/2016 TECHNIQUE: AP and axial views of the clavicle FINDINGS: There has been partial heali ng across the previous described left distal clavicle fracture as well as fracture of the acromion. Scapular fracture partially visualized. No soft tissue abnormality is identified. IMPRESSION: 1. Mild partial healing acro ss the distal clavicle fracture with good alignment. Minimal callus across the scapular fracture. 2016-03-08 EXAM: XR RIGHT CLAVICLE 2 VIEWS [facility] 14:02:00-00:00 DATE: 03/08/2016 9:34 AM [employer] [place] [facility] INDICATION: Fracture COMPARISON: Radiograph 02/14/2016 TECHNIQUE: AP and axial views of the clavicle FINDINGS: Redemonstration of the midsh aft clavicle fracture with inferior displacement of the distal fragment. There has been callus deposition across the fracture region. Mild soft tissue swelling. IMPRESSION: 1. Mild callus formation and deposition across t he mid clavicular fracture. 2016-03-08 EXAM: XR LEFT ELBOW 3 VIEWS [facility] 14:02:00-00:00 DATE: 03/08/2016 9:34 AM [employer] [place] [address] INDICATION: Pain and swelling COMPARISON: None TECHNIQUE: AP, lateral and oblique radiographs o f the elbow FINDINGS: No acute fracture or malalignment is i dentified. There is no excessive joint fluid. No soft tissu e abnormality is identified. IMPRESSION: No acute abnormality. 2016-03-06 EXAM: XR CHEST 1 VIEW [facility] 09:46:42-00:00 DATE: 03/06/2016 9:05 AM [employer] [address] [address] INDICATION: Crackles COMPARISON: 03/03/2016 TECHNIQUE: AP chest IMPRESSION: 1. Small left pleural effusion with left basilar atelectatic changes. 2. Prominent lung reticulati ons seen bilaterally suggestive of pulmonary edema. Superimposed infection cannot be excluded. 3. Cardiomediastinal silhoue tte is normal for technique. Aortic atherosclerotic disease with prominent aortic knob. 4. Tracheostomy appliance again seen in place. 5. Fractured right clavicle again seen. 2016-03-05 EXAM: XR ABDOMEN 1 view [facility] 10:20:00-00:00 DATE: 03/05/2016 8:51 AM [employer] [place] [address] INDICATION: Tube Placement PEG ADDITIONAL INFORMATION: None. COMPARISON: None. TECHNIQUE: Supine abdominal radiographs. Enteric contrast was given via enteric tube. Enteric contrast: 30 mL of Omnipaque 300 FINDINGS: Lower thorax: Unremarkable where visualized. Gastrostomy tube: In expecte d position. Instillation of contrast reveals intraluminal position without evidence of extravasation. Other tubes, lines and hardware: None. Bowel: Normal. No free air. No differential air fluid levels. Other abdominal organs: No abnormal mass or orga nomegaly seen. Calcifications: No abnormal calcifications found . Bones: No acute abnormality. Extraabdominal soft tissues: Normal. IMPRESSION: 1. Enteric tube in expected position with no con trast extravasation. 2016-03-03 EXAM: XR CHEST 1 VIEW [facility] 22:25:00-00:00 DATE: 03/03/2016 7:26 PM [facility] Cent er INDICATION: Abnormal chest sounds COMPARISON: 02/28/2016 FINDINGS: Tracheostomy appliance is st able. Feeding tube is been removed. The cardiomediastinal silhouette is stable. While evaluation is limited given semi- erect positioning, no distinct pneumothorax is identifi ed. Minimal basilar opacitie s are present with partial obscuration of the central left hemidiaphragm and descending thoracic aorta. Questionable airspace opacity in the left upper lobe is present. Previously described fractures again noted. IMPRESSION: 1. Minimal airspace opacity left upper lobe could represent focal area of pneumonitis. 2. Basilar opacities, most n otably in the left retrocardiac region, statistically representing atelectasis. Pneumonia not excluded. 3. Stable fractures and tracheostomy appliance. 2016-02-28 EXAM: XR CHEST 1 VIEW [facility] 02:42:00-00:00 DATE: 02/28/2016 3:00 AM [facility] Cent er INDICATION: Abnormal chest sounds. FINDINGS: Comparison is made to February 26. The cardiomediastinal silhou ette is stable. Life support lines and tubes remain in place. There are displaced bilatera l clavicular fractures. There is a displaced fracture of the left scapula with comminution. There are several bilateral rib fractures. Platelike atelectasis is see n in the bilateral lower lobes and left upper lobe. There is mild biapical capping. The costophrenic sulci are sharp, without effusions. IMPRESSION: No change from yesterday. 2016-02-27 EXAM: XR CHEST 1 VIEW [facility] 02:32:00-00:00 DATE: 02/27/2016 3:00 AM [facility] Cent er INDICATION: Abnormal chest sounds COMPARISON: 02/25/2016 TECHNIQUE: AP chest IMPRESSION: 1. Cardiomediastinal silhouette is enlarged, unc hanged. 2. Interval improvement of t he platelike atelectasis previously seen in the left lung. No significant pleural effusions. 3. Multiple left rib fractures again seen. 4. Cardiomediastinal silhouette is normal for rajeev hoskins. 2016-02-25 EXAM: XR CHEST 1 VIEW [facility] 00:23:00-00:00 DATE: 02/25/2016 3:00 AM [facility] Cent er INDICATION: Abnormal chest sounds COMPARISON: 02/24/2016 chest radiograph TECHNIQUE: AP chest FINDINGS: Tracheostomy tube projects over the midthoracic trachea. An enteric tube is present with its tip collimated field of view on the current examination. There is redemonstration of left retrocard iac/basilar and left periphe ral midlung opacities. Fluid is present within the right minor fissure. A trace left pleural effusion is not excluded. No pneumothorax is identified on the semierect view. Pu lmonary vascularity is karrie l. The heart size is normal for technique. Bilateral midclavicular shaft fractures, left scapular fracture, and multiple bilateral rib fractures are present. IMPRESSION: 1. Overall, no significant i nterval changes compared to previous study regarding the atelectatic changes seen bilaterally as well as a stable lines and tubes. 2016-02-24 [facility]AM: [facility] 01:51:00-[facility]:00 DATE: 02/24/2016 3:00 AM [facility] Cent er INDICATION: Arrhythmias COMPARISON: 02/23/2016 at 2204 hours TECHNIQUE: AP chest FINDINGS: Tracheostomy tube and Dobbhoff tube are unchanged in positioning. Peripheral left lung opacities are stable. A trace left pleural effusion is present. The previously seen lucency projecting ov er the left hemithorax is le ss conspicuous on the current examination. Pulmonary vascularity is normal. The heart size is prominent, but stable. Bilateral clavicular fractures, left scapular fracture, a nd multiple bilateral rib fractures are unchange d. IMPRESSION: 1. Stable peripheral left lung opacities and tra ce left pleural effusion. 2016-02-23 EXAM: [facility]ST [facility] 22:04:00-00:00 DATE: 02/23/2016 9:30 PM [employer] [place] [address] INDICATION: Tube placement/removal/reposition COMPARISON: 02/23/2016 at 1324 FINDINGS: Tracheostomy appliance and f eeding tube coursing past the inferior field of view are stable. Left basilar pleural catheter has been removed. The cardiac silhouette is pr ominent, but stable. Bilateral clavicular fractures, left scapular fracture, and multiple bilateral rib fractures remain. There is an asymmetric lucency in the left midlung a nd left pericardiac region w ith anterior pneumothorax not excluded. Asymmetric to the left basilar airspace opacities are present. Small amount of pleural fluid on the left suspected. IMPRESSION: 1. Removal of left pleural catheter. Other lines and tubes stable. 2. Asymmetric lucency in the left perihilar/pericardiac region is nonspecific, with anterior pneumothorax not excluded. 3. Asymmetric to the left ba silar airspace opacities suggesting contusion/atelectasis, stable. Superimposed pneumonia not excluded. Small amount pleural fluid on the left suspected. 4. Multiple bilateral fractures again noted. 2016-02-23 EXAM: XR CHEST 1 VIEW [facility] 13:20:00-00:00 DATE: 02/23/2016 1:00 PM [employer] [place] [facility] INDICATION: Tube placement/removal/reposition COMPARISON: 02/23/2016 at 3:30 AM TECHNIQUE: AP chest IMPRESSION: 1. No significant interval c hanges in the previously seen tracheostomy appliance, feeding tube and left pleural pigtail catheter. 2. Again seen are multiple l eft rib fractures, clavicular fractures and right upper rib fractures. 3. Better inflation of both lungs. Minimal opacities seen in the left lung peripherally which may represent contusions. No significant left pleural fluid. No significant pneumothorax is detected. 4. Cardiomediastinal silhouette is enlarged, unc hanged. 2016-02-23 EXAM: XR CHEST 1 VIEW [facility] 03:30:00-00:00 DATE: 02/23/2016 Center INDICATION: Tube placement/r emoval/reposition . Comparison is made with yesterday FINDINGS: Mediastinal silhou ette and life-support lines are stable. No pneumothorax is visualized however a supine or semierect radiograph is suboptimal for that determination. An erect film of the ches t is necessary in order to exclude small pneumot horaces. There is a layering left ple ural effusion outlining the left major fissure and capping the left lung apex. The right lung and left uppe r lobe are clear. There is platelike atelectasis in the left lower lobe. There are fractures of both clavicles, right posterior 2nd rib and left scapula. IMPRESSION: 1. The lungs are clear except for platel jan atelectasis in the left lower lobe 2. Left pleural effusion 3. No pneumothorax is visual ized however a supine or semierect radiograph is suboptimal for that determination. An erect film of the chest is necessary in order to exclude small pneumothoraces.. 2016-02-22 EXAM: XR CHEST 1 VIEW [facility] 01:57:00-00:00 DATE: 02/22/2016 Center INDICATION: Respiratory failure . Comparison is made with yesterday FINDINGS: Cardiomediastinal silhouette and life- support lines are stable. There is a small left pleural effusion. There is a lucency adjacent to the left heart border which could represent a ventral pneumothorax and a semierect patient or pneumomediastinum. It could also represent air in the left major fissure. The re is a patchy alveolar opac ity in the left midlung adjacent to the left rib fractures which could represent parenchymal contusion. The right lung is clear. The patient has a fractured left scapula, right clavicle and numerous left ribs IMPRESSION: No significant i nterval change when compared to prior radiograph. Lucency adjacent to the left heart border may represent a ventral left pneumothorax. The patient has a left basal pigtail pleural drainage catheter in place. 2016-02-21 ADDENDUM #2: [facility] 12:05:07-00:00 The additional findings and consequent change in report from the interpretation previously provided on this examination was conveyed by phone to and acknowledged by Dr. Gordy Jones at 6:05 PM February 21, 2016. Center ADDENDUM: As part of interpretation of the maxillofacial CT performed on this patient, I reviewed the images of the CT arteriographic study. In the region of soft tissue swelling corresponding with the fracture o f the anterior body of the m andible on the right there is extraluminal contrast. This is only seen on images from series 6 (214 through 218). It is not perceptible on the computer reformatted images in the sagittal plane as a consequence of the thickness of the mandible and is outsi de of the field of view of t he coronal reformatted images of the neck. The images of the head do not include the region. IMPRESSION: Active contrast extravasation related to the patient's fracture site with consequent development of a hematoma. EXAM: CT ANGIOGRAM OF THE BRAIN EXAM: CT ANGIOGRAM OF THE NECK DATE: 02/21/2016 9:32 AM [employer] INDICATION: Headache with Trauma COMPARISON: CTA 02/14/2016, 02/10/2016 TECHNIQUE: -Rapid acquisition spiral im ages of the brain and neck were obtained between the aortic arch and the cranial vertex during intravenous infusion of iodinated contrast for the purposes of CT angiography. 3-D CT angiographic images a re created using maximum intensity projection technique at the acquisition workstation. The source images are also presented for interpretation. IV contrast: 60 mL Omnipaque 320 Total DLP: 1644 mGycm FINDINGS: Stable appearance of the con tour irregularity and linear lucency within the cavernous left internal carotid artery secondary to traumatic dissection. No pseudoaneurysmal formation, proximal branch occlu isabel or flow-limiting stenosis. No distal intral uminal filling defects. The other vascular structures remain unchanged. 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 IV contrast: None FINDINGS: Stents of facial soft tissue swelling is present . The patient has undergone in terval repair of mandible fractures with placement of fixation plates and screws from the midline to the right and involving the left mandibular angle. Near anatomic alignmen t of the major fracture fragments has been achie adeline. Arch bars are in place. A fair sized soft tissue abn ormality, likely a postoperative hematoma, is identified inferior to the right mandibular ramus. Extensive air within the deep cervical soft tiss ues has since resolved. Again noted is a nondisplace d fracture of the posterior lateral rim of the glenoid fossa on the right. Displaced fracture of the dorsal wall of the left maxillary sinus related to mandibular dislocation is unchanged. Fracture of t he left lateral pterygoid plate is, likewise, unchanged The orbits and orbital contents are intact. The degree of paranasal sinu s opacification of the left maxillary sinus has diminished. Other paranasal sinuses are clear. Incidental imaging of the ma stoid air cells and middle ear cavities is unremarkable. The visualized soft tissues are otherwise normal. IMPRESSION: Postoperative hematoma deep to the right mandibu lar ramus. Interval fixation of the patient's mandibular fr actures. Other facial fractures are unchanged. 2016-02-21 EXAM: XR CHEST 1 VIEW [facility] 08:00:00-00:00 DATE: 02/21/2016 7:57 AM [employer] [place] [facility] INDICATION: Tube placement/removal/reposition COMPARISON: Chest radiograph dated 02/20/2016 at 1848 hours TECHNIQUE: AP chest FINDINGS: Lines, tubes and hardware: L eft pleural drainage catheter is unchanged. Tracheostomy tube is in stable position above the higinio. Feeding tube is again seen, partially visualized. Lungs and pleura: Patchy air space opacities are again seen in the left middle and lower lung zones which may represent atelectasis, aspiration, pneumonia or hemorrhage. Left retrocardiac opacity is agai n seen and may represent lay ering pleural effusion, atelectasis and/or pneumonia. Interval slight reduction in size of small left apical pneumothorax is identified. Heart and mediastinum: The cardiomediastinal kyle houette is stable. Bones: Bilateral clavicular, left scapular and bilateral rib fractures are again seen. IMPRESSION: 1. Stable lines and tubes as above. 2. Small left apical pneumothorax is slightly re duced in size. 3. Persistent small left pleural effusion. 4. Patchy airspace opacities in the left lung may represent atelectasis, aspiration, pneumonia or hemorrhage. 5. Left retrocardiac opacity may represent layering pleural effusion, atelectasis and/or pneumonia. 2016-02-20 EXAM: XR CHEST 1 VIEW [facility] 18:40:00-00:00 DATE: 02/20/2016 6:45 PM [employer] [place] [address] INDICATION: Line Placement COMPARISON: 02/20/2016 at 1840 FINDINGS: Tracheostomy appliance, feed ing tube coursing past the inferior field of view, and left basilar pleural pigtail catheter stable. The cardiomediastinal silhou ette is stable. Minimal volume loss in the right lung base and scattered airspace opacities in the left mid and lower lung are stable. Small to moderate pneumothorax extendin g from the left apex to the left lung base is similar. Left rib fractures are stable. IMPRESSION: 1. Persistent small to moder ate left pneumothorax with left pleural catheter in place. 2. Other lines and tubes stable. 3. Asymmetric to the left airspace opacities rem ain. 2016-02-20 EXAM: XR CHEST 1 VIEW [facility] 18:40:00-00:00 DATE: 02/20/2016 6:11 PM [employer] [place] [address] INDICATION: Line Placement COMPARISON: 02/20/2016 at 1605 FINDINGS: Tracheostomy appliance and f eeding tube coursing past the inferior field of view are stable. There is been interval placement of a pigtail pleural catheter at the left lung base. Left pneumothorax has slightly decreased in size. The cardiomediastinal silhou ette is stable. Scattered airspace opacities in the left mid and lower lung persist. Asymmetric lucency at the left lung base suggests poorly delineated component of pneumoth orax. Minimal volume loss is present in the righ t lung base. IMPRESSION: 1. Interval placement of lef t basilar pleural pigtail catheter with slight decrease in size of left pneumothorax. 2. Other lines and tubes stable. 3. Scattered asymmetric to the left airspace opa cities are similar. 2016-02-20 EXAM: XR CHEST 1 VIEW [facility] 16:05:00-00:00 DATE: 02/20/2016 4:[address] [facility] [address] INDICATION: Shortness of Breath COMPARISON: Chest radiograph dated 02/20/2016 at 1045 hours. TECHNIQUE: AP chest FINDINGS: Lines, tubes and hardware: T racheostomy tube is in stable position above the higinio. Feeding tube is again seen, partially visualized. Lungs and pleura: Patchy air space opacities again seen in the left middle and lower lung zones. Left retrocardiac opacity is again seen and may represent left pleural effusion, atelectasis and/or pneumo agus. Small left apical pneumothorax is slightly larger. Heart and mediastinum: The cardiomediastinal kyle houette is stable. Bones: Bilateral clavicle, l eft scapular and bilateral rib fractures are again seen. IMPRESSION: 1. Small left apical pneumothorax is slightly in creased in size. 2. Unchanged small left pleural effusion. 3. Persistent patchy opaciti es in the left middle and lower lung zones may represent atelectasis, aspiration, pneumonia or hemorrhage. 4. Persistent left retrocard iac opacity may represent effusion, atelectasis and/or pneumonia. 2016-02-20 EXAM: XR CHEST 1 VIEW [facility] 10:45:00-00:00 DATE: 02/20/2016 9:33 AM [employer] [place] [facility] INDICATION: Shallow breathing COMPARISON: 02/16/2026 TECHNIQUE: AP chest FINDINGS: Stable life suppor t lines and tubes. Stable cardiomediastinal silhouette. Stable biapical pleural capping. Airspace opacities in the left lung have may represent atelectasis, aspiration, pneum onia or hemorrhage. Left ple ural effusion. Left retrocardiac opacity may represent singly or any combination of layering left pleural effusion, subsegmental atelectasis and/or pneumonia. Right infrahila r subsegmental atelectasis. Increased conspicuity of a small left apical pneumothorax. Skeletal fractures are unchanged. IMPRESSION: 1. Increased conspicuity of the small left apical pneumothorax. Close attention on future follow-up radiograph is recommended. 2. Other findings have not significantly changed . 2016-02-17 EXAM: XR CHEST [facility] 06:16:00-00:00 DATE: 02/17/2016 5:51 AM [employer] [place] [address] INDICATION: Crackles. FINDINGS: Comparison is made to February 15. The Dobbhoff feeding tube is been advanced into the stomach and then out of the [id number]. There is a tracheostomy tube in place. There are are bilateral clav icular fractures. There is a fracture of the left scapula. There are several bilateral rib fractures. Subcutaneous emphysema is scattered in the chest wall. The cardiomediastinal silhou ette is stable. There is mild stable biapical capping. There is a left pleural effusion obscuring the left lower lobe and left cardiac margin. There is a left retrocardiac opacity which may be due to a layering left pleural effusion and/or a left lower lobe airspace opacity such as pneumonia or atelectasis. Patchy opacities in the left lung sommers ve improved. There is right perihilar subsegment al atelectasis. IMPRESSION: 1. Airspace opacities in the left lung have improved which may indicate improvement of atelectasis, aspiration, pneumonia or hemorrhage. 2. There is a left retrocard iac opacity which may be due to a layering left pleural effusion and/or a left lower lobe airspace opacity such as pneumonia or atelectasis. 3. Right perihilar subsegmental atelectasis. 4. Persistent left pleural effusion and stable b iapical capping. 5. Bilateral rib, clavicular, and left scapular fractures. 2016-02-16 EXAM: XR CHEST 1 VIEW [facility] 14:34:00-00:00 DATE: 02/16/2016 2:00 PM [employer] [place] [facility] INDICATION: Abnormal chest sounds. FINDINGS: Comparison is made to February 15 at 4 4 minutes after midnight. The Dobbhoff feeding tube sommers s been pulled back, now with the tip near the GE junction. A subsequent abdominal radiograph shows it has since been repositioned. There is a tracheostomy tube in place. There are bilateral clavicul ar fractures. There is a fracture of the left scapula. There are several bilateral rib fractures. There is subcutaneous emphysema scattered throughout the chest wall. There is mild biapical cappi ng presumably related to subjacent rib fractures. There are persistent small bilateral pleural effusions, greater on the left. Alveolar opacities in the ri ght lung have increased. There is right lower lobe subsegmental atelectasis. IMPRESSION: 1. Increasing airspace opaci ties throughout the left lung could be due to atelectasis, aspiration, and/or pneumonia. Underlying hemorrhage in the left lung is not excluded. 2. Right lower lobe subsegmental atelectasis. 3. Small bilateral pleural effusions, greater on the left. 4. The tip of the Dobbhoff f eeding tube is near the GE junction. A subsequent radiograph shows it has since been repositioned. 5. Bilateral clavicular, rib, and left scapular fractures. 2016-02-16 EXAM: XR ABDOMEN 2 VIEWS [facility] 14:34:00-00:00 EXAM: XR ABDOMEN 1 VIEW Center DATE: 02/16/2016 2:00 PM [employer]ER INDICATION: Abdominal distension, tube placement COMPARISON: None. TECHNIQUE: AP views of the a bdomen. The earlier exam comprises two frontal images (1426 hours) and the later exam consists of a single frontal view of the abdomen (1449 hours). FINDINGS: Lines and tubes: A Dobbhoff feeding tube is coiled in the stomach with the tip projecting over the stomach body in the final image (1449 hours). A linear density overlies the pelvis. A tracheostomy tube is partially imaged. Tip of Gant kirti ter projects over the pubic symphysis. Lower thorax: A left retroca rdiac opacity is present. Small left pleural effusion with associated atelectasis/consolidation. Bowel: Gas is seen in the la rge and small bowel without evidence of obstruction. Solid organs: No abnormal ma ss or organomegaly seen. No abnormal calcifications found. Bones: Multiple bilateral ri b fractures are seen. Comminuted left scapular fracture. Soft tissues: Subcutaneous emphysema seen along the bilateral thorax. IMPRESSION: 1. Tube positioning as above. 2. Nonobstructive bowel gas pattern. 3. Bilateral rib fractures. Comminuted left scap ular fracture. 4. Left retrocardiac opacity may represent, singly or in any combination: pleural effusion, atelectasis, and/or consolidation. 2016-02-16 EXAM: XR ABDOMEN 2 VIEWS [facility] 14:34:00-00:00 EXAM: XR ABDOMEN 1 VIEW Center DATE: 02/16/2016 2:00 PM METAL BED ASSEMBLER INDICATION: Abdominal distension, tube placement COMPARISON: None. TECHNIQUE: AP views of the a bdomen. The earlier exam comprises two frontal images (1426 hours) and the later exam consists of a single frontal view of the abdomen (1449 hours). FINDINGS: Lines and tubes: A Dobbhoff feeding tube is coiled in the stomach with the tip projecting over the stomach body in the final image (1449 hours). A linear density overlies the pelvis. A tracheostomy tube is partially imaged. Tip of Gant kirti ter projects over the pubic symphysis. Lower thorax: A left retroca rdiac opacity is present. Small left pleural effusion with associated atelectasis/consolidation. Bowel: Gas is seen in the la rge and small bowel without evidence of obstruction. Solid organs: No abnormal ma ss or organomegaly seen. No abnormal calcifications found. Bones: Multiple bilateral ri b fractures are seen. Comminuted left scapular fracture. Soft tissues: Subcutaneous emphysema seen along the bilateral thorax. IMPRESSION: 1. Tube positioning as above. 2. Nonobstructive bowel gas pattern. 3. Bilateral rib fractures. Comminuted left scap ular fracture. 4. Left retrocardiac opacity may represent, singly or in any combination: pleural effusion, atelectasis, and/or consolidation. 2016-02-16 EXAM: XR CHEST 1 VIEW [facility] 00:34:00-00:00 DATE: 02/16/2016 Center INDICATION: Respiratory failure . Comparison is made with yesterday FINDINGS: The endotracheal t ube is been removed and replaced by a tracheostomy with its tip well above the higinio. Gastric tube has been replaced by a feeding tube with its tip in the fundus of the stomach The heart is not enlarged. T he right lung and left upper lobe are clear. There is an opacity at the left lung base obscuring the left hemidiaphragm and the silhouette of the descending thoracic aorta. T his opacity may represent le ft pleural effusion with or without left lower lobe consolidation or atelectasis. IMPRESSION: 1. The endotracheal tube is been replaced by a tracheostomy. The gastric tube is been replaced by a feeding tube 2. Left retrocardiac opacity has increased sligh tly since yesterday. 3. Fractured clavicles bilat erally as well as fracture of the right lateral 2nd rib. No pneumothorax is visualized however a supine or semierect radiograph is suboptimal for that determination. An erect film of the chest is necessary in order to excl ude small pneumothoraces.. 2016-02-15 EXAM: XR ABDOMEN 4 FRONTAL VIEWS [facility] 21:20:00-00:00 DATE: 02/15/2016 8:18 PM [employer]ED ASSEM[employer] [place] [address] INDICATION: Tube Placement NG ADDITIONAL INFORMATION: None. COMPARISON: KUB 02/13/2016 at 1840 hours TECHNIQUE: Frontal views of the abdomen. FINDINGS: Lines and tubes: Repositioni ng of enteric tube with distal tip projecting over the gastric fundus. Guidewire present. Lower thorax: Left retrocard iac opacity. Please see follow-up chest x-ray for more details of thoracic findings. Persistent subcutaneous edema over the bilateral axilla and lateral chest saini. Bowel: Nonobstructive bowel gas pattern. Moderat e stool burden. Solid organs: No abnormal mass or organomegaly s een. Calcifications: No abnormal calcifications found . Bones: Partially seen bilateral rib fractures. S table thoracolumbar spine. IMPRESSION: 1. Enteric tube as detailed. 2. Additional findings as listed above. 2016-02-15 A single portable radiograph for tube placement is compared to prior abdominal radiograph from 02/11/2016. A transesophageal tube is noted which is kinked in the distal esophagus. Repositioning is recommended. [facility] 18:42:00-00:00 The cardiomediastinal silhou ette is stable. Extensive subcutaneous emphysema remains. Again noted is the partially visualized left hydropneumothorax . Multiple rib fractures as described previously. Center Please refer to the school director chest x-ray for fu rther details. IMPRESSION: Transesophageal tube kinked in the distal esophagus. Repositioning recommended. 2016-02-15 EXAM: XR CHEST 1 VIEW [facility] 03:30:00-00:00 DATE: 02/15/2016 3:00 AM METAL BED ASSEMBL[employer] [address] [address] INDICATION: Abnormal chest sounds. FINDINGS: Comparison is made to yesterday. The cardiomediastinal silhou ette is stable with persistent mild pneumomediastinum. There is subcutaneous emphysema in the chest wall. Life support lines and tubes remain in place. There are bilateral clavicul ar fractures. There is a fracture of the left scapula. There are several bilateral rib fractures. There is mild biapical cappi ng presumably related to subjacent rib fractures. There may be a trace residual right apical pneumothorax. There are scattered patchy a lveolar opacities in the left lung which could be due to residual hemorrhage following the trauma with or without superimposed atelectasis or pneumonia. There is right perihilar subsegmental atelectasis. IMPRESSION: No significant change from yesterday . 2016-02-14 CT FACIAL BONES WITHOUT CONTRAST [facility] 22:45:00-00:00 DATE: 02/14/2016 at 11:02 PM METAL BED ASSEMBLER Center INDICATION: Swelling COMPARISON: 02/10/2016. CTA head and neck 2015 at 7:30 AM. TECHNIQUE: Volumetric CT acq uisition of the facial bones without contrast. Axial, coronal and sagittal reconstructions were also provided. IV contrast: None. DLP: 951.40 DISCUSSION: Bones: Comminuted right para symphyseal mandibular fracture is again noted, and displaced fracture of the left mandibular angle is again noted. A butterfly fragment is again noted containing tooth #27. S oft tissue swelling is noted over the left mandible consistent with hematoma formation. There is no fluid collection. Subcutaneous air is noted within the tissue planes of the neck more prominent on the right but decreased from the prior study. There is a comminuted inward ly bowed fracture of the posterior lateral wall of the left maxillary antrum. Fractures of the left lateral pterygoid plate is again noted. Hypodensity is noted within the left frontal white matter and within the left side of the corpus callosum consistent with an evolving infarct similar to on the CTA performed earlier on the same day. IMPRESSION: 1. Comminuted right parasymp hyseal mandibular fracture, left parasymphyseal mandibular fracture, and comminuted fracture of the posterior lateral wall of the left maxillary sinus, and left lateral ptery goid plate not significantly changed from the pr ior study of 02/10/2016. 2. There is soft tissue swel ling about the mandible consistent with hematoma formation. There is no fluid collection to suggest an abscess. 3. Evolving left sided infarct. 2016-02-14 EXAM: XR CHEST 1 VIEW [facility] 18:28:00-00:00 DATE: 02/14/2016 6:30 PM MET[employer]ED AS[employer] [address] [address] INDICATION: Tube placement/removal/reposition COMPARISON: 02/14/2016 at 0124 FINDINGS: ET tube with tip above the c lizzy and NG tube coursing past the inferior field of view are present. Right thoracostomy tube is been removed. Extensive subcutaneous emphysema overlying the chest wall rowena aterally is similar. Cardiac silhouette is prominent. Mild bilateral airspace opacities are present, with superimposed left retrocardiac opacities. Within limitations of overlying subcutaneous emphysema and semierect positioning, no definite pneumothorax is identified. Previously described fractures again noted. IMPRESSION: 1. Removal of right thoracostomy tube. Other radha es and tubes stable. 2. Basilar atelectasis, asymmetric to the left. 3. Stable fractures. 4. Within limitations as above, no definite pneu mothorax identified. 2016-02-14 EXAM: XR LEFT CLAVICLE 2 VIEWS [facility] 12:50:00-00:00 DATE: 02/14/2016 12:32 PM METAL BED ASSEMBLER Ce nter INDICATION: Fracture COMPARISON: 02/12/2016 TECHNIQUE: AP and axial views of the clavicle FINDINGS: Comminuted left di stal clavicle fracture with minimal displacement is again seen. Fracture of the root of acromion as well as a scapular body fracture is also visualized as before without significant changes. Previous seen and multiple left-sided rib fractu res also present. No soft tissue abnormality is identified. IMPRESSION: Comminuted left distal clavicle fracture with mi nimal displacement. Root of acromion fracture with minimal displacem ent. Comminuted scapular body fracture is unchanged. 2016-02-14 EXAM: XR RIGHT CLAVICLE 2 VIEWS [facility] 12:50:00-00:00 DATE: 02/14/2016 at 1257 hours C enter INDICATION: Fracture COMPARISON: Right clavicle x-ray on 02/12/2016. TECHNIQUE: AP and axial views of the right clavi lisa FINDINGS: The comminuted rig ht midshaft clavicle fracture is unchanged, with one shaft width inferior displacement of the distal fragment and cranial apex angulation. Fractures of the right lateral 2nd and 3rd ribs are unchanged. Subcutaneous emphysema persi sts over the right shoulder, with improvement since the prior exam. IMPRESSION: Unchanged comminuted right m id shaft clavicle fracture and right 2nd and 3rd rib fractures. Improved subcutaneous emphysema over the right s [place]. 2016-02-14 Addendum: The nonocclusive l inear defects described in the impression in the cavernous segment of the right internal carotid artery should read in the left internal carotid artery. Findings are favored to reflect a traumatic dissection. [facility] 09:12:00-00:00 EXAM: CT ANGIOGRAM OF THE BRAIN Center EXAM: CT ANGIOGRAM OF THE NECK EXAM: CT PERFUSION OF THE BRAIN DATE: 02/14/2016 at 7:30 AM INDICATION: Altered level of consciousness, trau ma COMPARISON: MRI brain 02/11/2016 and CTA 016 TECHNIQUE: - Dynamic CT perfusion image s on a limited area of the brain parenchyma are performed during bolus injection of iodinated contrast material. Color maps of relative cerebral blood flow, relative cerebral blood volume, time to peak, and mean transit time are created on an independent workstation and are submitted along with the source image data. -Rapid acquisition spiral CT images of the brain and neck were obtained between the aortic arch and the cranial vertex during intravenous infusion of iodinated contrast for the purposes of CT angiograph y. 3-D CT angiographic image s are created using maximum intensity projection technique at the acquisition workstation. The source images are also presented for interpretation. IV contrast: 104 mL of Visipaque 320 DLP: 3556mGy-cm FINDINGS: NECK CTA: Partially calcified atherosc lerotic plaque at the origin of the brachiocephalic trunk and plaque at the right vertebral artery origin without hemodynamically significant stenosis, unchanged. Previously demonstrated mild luminal co ntour irregularities in the right vertebral artery have improved. There is no hemodynamically significant stenosis within either vertebral artery in the cervical segments. Slight luminal contour irreg ularity in the left cervical internal carotid artery below the skull base and mild attenuation of the internal carotid artery in the petrous segment. There is no hemodynamica lly significant stenosis wit hin either common or internal carotid artery in the neck. Unchanged atherosclerotic plaque at the right carotid bifurcation and proximal right internal carotid artery. Lumina l contour irregularities in the left external ca rotid artery have improved. Extensive subcutaneous and s oft tissue emphysema. Thoracostomy tube remains in place on the right with decreased pleural effusion. Extensive fractures are again demonstrated. The tip of a tracheostomy tube is incompletely imaged. BRAIN CTA: Atherosclerotic calcificatio ns and plaques within the carotid siphons bilaterally. Residual filling defects in the cavernous segment of the left internal carotid artery. There is slight interval narrowi ng of caliber of the petrous segment of the left internal carotid artery. Unchanged appearance of a 2 mm in width focal outpouching of the supraclinoid right internal carotid artery at the origin of the posterior communicating artery, likely an infun dibulum. No proximal branch occlusion or hemodynamically significant stenosis within the anterior or middle cerebral arteries. Focal stenosis in the mid ba silar artery approximately 50% without distal flow restriction is again demonstrated, likely secondary to atherosclerotic change. There is diffuse atherosclerotic disease and luminal irregularity in the intradural segment of the left vertebral artery. Focal stenosis in the left P1 segment. Mild luminal contour irregularity in the right P2 segment. No proximal branch RADIO DESPATCHER hemodynamically significant stenosis or occlusion. The major dural venous sinuses are patent. Compared to the prior MRI, i nterval progression of ischemic changes in the brain, which involve the ADAMS and MCA territories and basal ganglia on the left, as well as redemonstration of changes in the region of the left temporal occipital junction. CT PERFUSION: Time to peak demonstrates di ffuse delay in timing of perfusion in the left MCA territory. The cerebral blood volume map fails to demonstrate defects correlating with the ischemic changes on the CT. RAPID analysis: CBF (less than 30 % volume): Less than 1 mL or n one. Perfusion (Tmax greater than 6 seconds) volume: Less than 1.5 mL or none. Mismatch volume: 0. Mismatch ratio: None. IMPRESSION: Compared to MRI from 016, progression of ischemic changes in the left ADAMS and MCA territories as well as redemonstration of ischemic change at the left temporal occipital junction. Nonocclusive filling defects in the cavernous segment of the right internal carotid artery are redemonstrated. Mild narrowing of caliber of the left petrous segment. Diffuse delay in time to peak in the left MCA te rritory. Intracranial and extracrania l atherosclerotic changes. No significant vasculitic changes in the distal cerebral branches. Improved vasospastic changes in the left externa l carotid artery. (All qualitative and quantit ative assessments of carotid bifurcation and proximal internal carotid artery stenosis are made referencing the distal internal carotid artery {NASCET criteria}.) 2016-02-14 EXAM: XR CHEST 1 VIEW [facility] 01[facility]24:00-00:00 DATE: 02/14/2016 at 0124 hours C enter INDICATION: Abnormal chest sounds . Comparison i s made with yesterday FINDINGS: Tip of endotrachea l tube is well above the higinio. Gastric tube courses below the diaphragm beyond the confines of the chest radiograph. There is a right apical chest tube in place. There is a small left apical pneumothorax. Costophrenic sulci are sharp without effusion. Subcutaneous emphysema is stable. There are bilateral rib frac tures and bilateral clavicular fractures which are unchanged. There is platelike atelectas is at both lung bases, left base greater than right. The remainder of the right lung is clear. There is improving parenchymal hemorrhage in the left midlung. IMPRESSION: Small left apica l pneumothorax following removal yesterday of the left pigtail pleural drainage catheter 2016-02-13 EXAM: XR CHEST 1 VIEW [facility] 20:43:00-00:00 DATE: 02/13/2016 8:08 PM MET[employer] BED AS[employer] [place] [address] INDICATION: Tube placement/removal/reposition COMPARISON: Chest x-ray dated 02/13/2016 at 1400 hours TECHNIQUE: AP chest FINDINGS: Lines, tubes and hardware: E ndotracheal tube is seen with tip approximately 2.5 cm above the higinio. NG tube again seen, partially visualized. Lungs and pleura: Persistent left greater than right.No pulmonary or pleural based abnormality is identified. Heart and mediastinum: The h eart size is normal for technique. The mediastinal contours are normal. Bones: No acute bony abnormality is identified. IMPRESSION: No acute cardiopulmonary abnormality . 2016-02-13 EXAM: XR CHEST 1 VIEW [facility] 14:32:00-00:00 DATE: 02/13/2016 2:30 PM MET[employer] BED ASSEMBL[employer] [place] [address] INDICATION: Crackles COMPARISON: Chest x-ray dated 02/13/2016 at 00:4 7 hours. TECHNIQUE: AP chest FINDINGS: Lines, tubes and hardware: E ndotracheal tube is again seen with tip approximately 3.5 cm above the higinio. Right chest tube is unchanged in position. NG tube is partially visualized. Left-sided pleural drainage catheter is unchanged in position. Lungs and pleura: Similar ap pearance of bilateral pulmonary parenchymal contusions, left greater than right. Extrapleural opacities are seen in the lung apices bilaterally, consistent with small hemothoraces. Heart and mediastinum: Uncha nged appearance of the cardiac mediastinal silhouette. Bones/soft tissues: Unchange d multilevel fractures with slightly less diffuse subcutaneous emphysema. IMPRESSION: 1. Unchanged appearance of b ilateral, left greater than right pulmonary parenchymal contusions. 2. Unchanged, small bilateral apical hemothorace s. 3. Unchanged multilevel frac tures with slightly reduced diffuse subcutaneous emphysema. 2016-02-13 EXAM: US BILATERAL LOWER EXTREMITY VENOUS DOPPLE R [facility] 12:40:00-00:00 DATE: 02/13/2016 10:34 AM METAL BED ASSEMBLER Ce nter INDICATION: Embolism/occlusion lower extremity ADDITIONAL INFORMATION: None. COMPARISON: None. TECHNIQUE: Multiplanar douglas stephanie, color Doppler and spectral Doppler ultrasound of the bilateral lower extremity veins. DISCUSSION: Right Thigh Veins: Common Femoral: Patent. Femoral (SFV): Patent. Popliteal: Patent. Proximal Greater Saphenous: Patent. Deep Femoral Veins: Patent. Left Thigh Veins: Common Femoral: Patent. Femoral (SFV): Patent. Popliteal: Patent. Proximal Greater Saphenous: Patent. Deep Femoral Veins: Patent. IMPRESSION: 1. Normal. No deep venous thrombosis (DVT). 2016-02-13 EXAM: XR CHEST 1 VIEW [facility] 00:47:00-00:00 DATE: 02/13/2016 3:00 AM METAL BED ASSEMBL[employer] [address] [address] INDICATION: Abnormal chest sounds COMPARISON: Yesterday TECHNIQUE: AP chest FINDINGS: Stable life suppor t lines and tubes. Stable cardiomediastinal silhouette. Stable residual right pneumothorax. Mild continued decrease in the left pneumothorax. No significant residual hemothor aces. Persistent bilateral l eft greater than right airspace opacities indicative of evolving contusions and lacerations. Unchanged skeletal structures, with multilevel fractures and diffuse subcutaneous emphysema. IMPRESSION: 1. Mild continued decrease in the left pneumotho rax. 2. Other abnormal posttraumatic findings as desc ribed above. 2016-02-12 EXAM: XR RIGHT CLAVICLE 2 VIEWS [facility] 09:01:00-00:00 DATE: 02/12/2016 8:28 AM METAL BED ASSEMBL[employer] [place] [address] INDICATION: Fracture COMPARISON: February 10, 2016 TECHNIQUE: AP and axial views of the clavicle FINDINGS: Unchanged appearan ce of comminuted right mid clavicle fracture with apex cranial angulation. Again seen is subcutaneous gas over the right hemithorax. No soft tissue abnormality is identified. IMPRESSION: Unchanged appear ance of right midclavicular fracture with apex cranial angulation and subcutaneous gas over the right hemithorax. 2016-02-12 EXAM: XR LEFT CLAVICLE 2 VIEWS [facility] 09:01:00-00:00 DATE: 02/12/2016 8:28 AM METAL BED ASSEMBL[employer] [place] [address] INDICATION: Fracture COMPARISON: February 10, 2016 TECHNIQUE: AP and axial views of the clavicle FINDINGS: Comminuted fractur e of the left distal clavicle with minimal displacement is seen. Again seen is fracture extending to the acromion and scapular neck and body region. No soft tissue abnormality is identified. IMPRESSION: Comminuted minim ally displaced left distal clavicular fracture. Fracture of acromion and scapular unchanged. 2016-02-12 EXAM: XR CHEST 1 VIEW [facility] edical 00:32:00-00:00 DATE: 02/12/2016 3:00 AM METAL BED ASSEMBLER [place] [address] INDICATION: Tube placement/removal/reposition COMPARISON: Yesterday TECHNIQUE: AP chest IMPRESSION: Stable life supp ort lines and tubes. Stable cardiomediastinal silhouette. Stable extent of right pneumothorax. Moderate left pneumothorax persists, however has minimally decreased. Decrease in bilateral hemothoraces. U nchanged skeletal structures, with multilevel fractures and diffuse subcutaneous emphysema. Diffuse bilateral left greater than right airspace opacities are likely the result of residual contusions. 2016-02-11 EXAM: XR CHEST 1 VIEW [facility] edical 10:06:00-00:00 DATE: 02/11/2016 10:06 AM METAL BED ASSEMBLER Ce nter INDICATION: Tube/Catheter Placement COMPARISON: 02/11/2016 at 0634 FINDINGS: ET tube with tip above the c lizzy, NG tube with side holes below the GE junction, and right thoracostomy tube with tip near the superior right apex are stable. There is been interval placement of a pleural catheter inferiorly on the left. The cardiomediastinal silhou ette is stable. Extensive subcutaneous emphysema limits evaluation. Scattered asymmetric to the left airspace opacities are present. Moderate left pneumothorax is present. Sm all right apical pneumothora x is present. Multiple rib fractures previously described. Bilateral clavicular fractures are present. IMPRESSION: 1. Interval placement of lef t pleural catheter. Right thoracostomy tube and other lines/tubes are stable. 2. Small right apical and small to moderate left lateral pneumothorax. 3. Asymmetric to the left al veolar opacity suggesting contusion and/or infection. 4. Extensive subcutaneous emphysema persists. 2016-02-11 EXAM: Procedure name Shailesh Ri dical 09:25:00-00:00 DATE: 02/11/2016 9:18 AM METAL BED ASSEMBL[employer] [address] [address] INDICATION: Line Reposition COMPARISON: 02/10/2016 at 1308 hours TECHNIQUE: AP view of abdomen. FINDINGS: An NG tube is pres ent. The tube tip is in the fundus in good position. The gastric air bubble is mo derately distended but not abnormally dilated. There is gaseous distention of the colon which remains normal in diameter. Subcutaneous emphysema is present over the lower chest. IMPRESSION: 1. The NG tube is in good position. 2016-02-11 EXAM: XR CHEST 1 VIEW [facility] 06:27:00-00:00 DATE: 02/11/2016 3:38 AM METAL BED ASSEMBL[employer] [place] [address] INDICATION: Abnormal chest sounds COMPARISON: 02/10/2016 TECHNIQUE: AP chest IMPRESSION: 1. Interval progression in t he amount of the chest wall soft tissue emphysema compared to previous study. 2. Again seen patchy opaciti es in both lungs suggestive of lung contusions or infection. 3. Again seen is the small l eft pneumothorax without interval changes. No significant right pneumothorax. Small amount of pneumomediastinum again seen. 4. Again seen is endotracheal tube, NG tube and right thoracostomy tube. 5. Cardiac mediastinal silhouette is normal for technique. 6. Multiple rib fractures again seen. 2016-02-11 EXAM: MRI BRAIN WITHOUT CONTRAST [facility] 05:00:00-00:00 DATE: 02/11/2016 2:13 AM METAL BED ASSEMBLER. Ce nter INDICATION: Pain Post Trauma. COMPARISON: CT brain without contrast on 016. TECHNIQUE: Multiplanar, multisequence MRI of the brain without contrast. IV contrast: None. FINDINGS: Multiple curvilinear foci of restricted diffusion are seen within the cortical regions of the left frontal lobe with extension into the subcortical regions. Similar foci are seen within the left occipit al lobe. No evidence of hemo rrhagic transformation are seen at these levels. There is corresponding increased T2 signal which suggests greater than 6 hours duration. A small amount of posttrauma tic subarachnoid hemorrhage is seen along the interhemispheric fissure. These regions demonstrate restricted diffusion on the corresponding DWI sequence. The previously noted small subdural hemorrhage a long the right tentorium is not clearly appreciated on this study. No hydrocephalus, mass, mass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
[2022-10-31 13:45] LABS: Absolute Lymphocytes (CBC) 1.6 K/uL (0.7-4.9); Hematocrit 30.8 % (36.0-45.0); Lymphocytes % 10.6 % (15.3-44.8); MCV 90.4 fL (80-100); MPV 7.7 fL (7.6-11.3); Platelets 293 thou/uL (152-406); RBC Red Blood Cell Count 3.41 M/uL (3.86-4.86)
[2022-10-31 14:01] LABS: Bilirubin Total 0.4 mg/dL (0.2-1.0); Potassium 3.8 mEq/L (3.5-5.1); Protein, Total 7.6 g/dL (6.4-8.2)
[2022-10-31] MEDS ORDERED: NA CHLORIDE 0.9% 1,000 ML ONE (14:36)
[2022-10-31] MEDS ORDERED: NA CHLORIDE 0.9% 500 ML ONE (14:36)
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
--- NOTE | 2022-10-31 18:20 | ER ---
Nurse's Notes [facility] Name: Mony Ogden Age: 67 yrs Sex: Female : 1955 Arrival Date: 10/31/2022 Time: 12:42 Bed 14 Private MD: Diagnosis: Hypo-osmolality and hyponatremia;Weakness;Altered mental status, unspecified Presentation: 10/31 13:02 Chief complaint: Patient's son or daughter states: Instructed by PCP to come to ED nj1 because of sodium was too low. Seen yesterday, blood work done yesterday. Coronavirus screen: Vaccine status: Patient reports receiving the 2nd dose of the covid vaccine. Ebola Screen: Patient denies travel to an Ebola-affected area in the 21 days before illness onset. Initial Sepsis Screen: Does the patient meet any 2 criteria? No. Patient's initial sepsis screen is negative. Does the patient have a suspected source of infection? No. Patient's initial sepsis screen is negative. Risk Assessment: Do you want to hurt yourself or someone else? Unable to obtain. Onset of symptoms was September 2022. 13:02 Method Of Arrival: Wheelchair nj1 13:02 Acuity: STEPHANY 3 nj1 Historical: - Allergies: 13:07 No Known Allergies; nj1 - PMHx: 13:07 Cerebrovascular accident; Hypertensive disorder; Diabetes mellitus; nj1 Hypercholesterolemia; - Immunization history:: Client reports receiving the 2nd dose of the Covid vaccine. - Social history:: Smoking status: Patient denies any tobacco usage or history of. Screenin:35 [facility] ED Fall Risk Assessment (Adult) History of falling in the last 3 months, kc6 including since admission No falls in past 3 months (0 pts) Confusion or Disorientation Yes (5 pts) Intoxicated or Sedated No (0 pts) Impaired Gait Yes (1 pt) Mobility Assist Device Used Yes (1 pt) Altered Elimination No (0 pt) Score/Fall Risk Level 3 or more points = High Risk. Abuse screen: Denies threats or abuse. Denies injuries from another. Nutritional screening: No deficits noted. Tuberculosis screening: No symptoms or risk factors identified. Assessment: 14:38 General: Appears comfortable, Behavior is flat. Pain: Denies pain. Neuro: Level of sg5 Consciousness is alert, Oriented to person, Paralysis. Cardiovascular: Capillary refill < 3 seconds Patient's skin is warm and dry. Respiratory: Airway is patent Trachea midline Respiratory effort is even, unlabored, Respiratory pattern is regular, symmetrical. GI: No signs and/or symptoms were reported involving the gastrointestinal system. : No signs and/or symptoms were reported regarding the genitourinary system. EENT: No signs and/or symptoms were reported regarding the EENT system. 15:29 Reassessment: awaiting daughter who is POA for consult with provider on treatment plan. sg5 15:38 Reassessment: Patient appears in no apparent distress at this time. No changes from kc6 previously documented assessment. Patient and/or family updated on plan of care and expected duration. Pain level reassessed. 16:35 Reassessment: Patient appears in no apparent distress at this time. No changes from kc6 previously documented assessment. Patient and/or family updated on plan of care and expected duration. Pain level reassessed. 17:29 Reassessment: Patient appears in no apparent distress at this time. No changes from kc6 previously documented assessment. Patient and/or family updated on plan of care and expected duration. Pain level reassessed. Patient is alert, oriented x 3, equal unlabored respirations, skin warm/dry/pink. 17:52 Reassessment: attempted to contact Arron (son in law) regarding the need for POA's [facility] contact info. call failed 3x. 18:29 Reassessment: Patient appears in no apparent distress at this time. No changes from kc6 previously documented assessment. Patient and/or family updated on plan of care and expected duration. Pain level reassessed. Patient is alert, oriented x 3, equal unlabored respirations, skin warm/dry/pink. 19:23 Reassessment: Daughter cell # [phone] Son in law cell # [phone]. ha1 19:25 General: Appears comfortable, Behavior is calm. Pain: Unable to use pain scale. FLACC ha1 scale score is 0 out of 10. Neuro: Level of Consciousness is awake, alert, Oriented to person. Cardiovascular: Patient's skin is warm and dry. Respiratory: Airway is patent Respiratory effort is even, unlabored, Respiratory pattern is regular, symmetrical. GI: No signs and/or symptoms were reported involving the gastrointestinal system. Abdomen is flat, non-distended. : No signs and/or symptoms were reported regarding the genitourinary system. Musculoskeletal: Range of motion: limited in all extremities. 20:25 Reassessment:. General: Appears comfortable, Behavior is calm, cooperative. ha1 Respiratory: Airway is patent Respiratory effort is even, unlabored, Respiratory pattern is regular, symmetrical. 21:16 Reassessment: attempted to give report. ha1 Vital Signs: 13:02 BP 106 / 74; Pulse 66; Resp 18; Temp 97.9(TE); Pulse Ox 100% on R/A; Weight 49.9 kg nj1 (R); Height 5 ft. 3 in. ; 14:07 BP 124 / 79; Pulse 63; Resp 16; Pulse Ox 100% on R/A; sg5 15:01 BP 139 / 77; Pulse 66; Resp 16; Pulse Ox 100% ; sg5 15:32 BP 134 / 70; Pulse 59; Resp 16; Pulse Ox 100% on R/A; sg5 16:35 BP 129 / 72; Pulse 62; Resp 18 S; Pulse Ox 100% on R/A; kc6 17:29 BP 128 / 78; Pulse 63; Resp 17 S; Pulse Ox 100% on R/A; kc6 19:26 BP 131 / 74; Pulse 60; Resp 17 S; Pulse Ox 100% on R/A; ha1 20:30 BP 107 / 53; Pulse 61; Resp 18 S; Pulse Ox 100% on R/A; ha1 13:02 Body Mass Index 19.49 (49.90 kg, 160.02 cm) nj1 ED Course: 12:44 Patient arrived in ED. rg4 12:59 Rashi Hernández MD is Attending Physician. kdr 13:06 Triage completed. nj1 13:07 Arm band placed on left wrist. nj1 13:30 Inserted saline lock: 20 gauge in left antecubital area, using aseptic technique. kc6 ,using aseptic technique. by Jaime Flynn RN Blood collected. 13:35 Shawnee Brown, JADON is Primary Nurse. kc6 13:36 Patient has correct armband on for positive identification. Placed in gown. Bed in low kc6 position. Call light in reach. Side rails up X2. Adult w/ patient. 13:36 CMP Sent. bc6 13:36 CBC with Diff Sent. bc6 18:18 Steve Golden MD is Hospitalizing Provider. kdr 18:30 Gant cath inserted, using sterile technique, 16 Fr., by nj, balloon inflated, to kc6 gravity drainage, clamped. urine specimen collected. 18:43 Urinalysis w/ reflexes Sent. kc6 18:43 Urine Culture Sent. kc6 18:56 CXR XRAY In Process Unspecified. EDMS 19:00 Report given to Leslie Fitzpatrick RN. kc6 21:20 No provider procedures requiring assistance completed. Patient admitted, IV remains in ha1 place. Administered Medications: 14:34 Drug: NS 0.9% IV 500 ml Route: IV; Rate: bolus; Site: left antecubital; sg5 15:00 Follow up: IV Status: Completed infusion; IV Intake: 500ml sg5 14:52 Drug: NS 0.9% IV 1000 ml Route: IV; Rate: 75 ml/hr; Site: left antecubital; sg5 20:44 Drug: Rocephin - Rocephin (cefTRIAXone) IVPB 1 grams Route: IVPB; Infused Over: 30 ha1 mins; Site: left forearm; 21:00 Follow up: Response: No adverse reaction; IV Status: Completed infusion; IV Intake: [id number] Medication: 21:20 VIS not applicable for this client. ha1 Intake: 15:00 IV: 500ml; Total: 500ml. sg5 21:00 IV: 50ml; Total: 550ml. ha1 Outcome: 18:19 Decision to Hospitalize by Provider. kdr 22:10 Admitted to Tele accompanied by tech, room 408, with chart, Report called to Mary ha1 22:10 Condition: stable 22:10 Discharge instructions given to family, Instructed on the need for admit. ha1 11/01 01:55 Patient left the ED. 1 Signatures: Dispatcher [employer] EDMS Rashi Hernández MD MD kdr Garcia, Rubi rg4 Leslie Fitzpatrick RN RN ha1 Shawnee Brown RN RN kc6 Tona Burton Stephanie, RN RN sg5 Kathi Swartz, RN RN nj1 Corrections: (The following items were deleted from the chart) 10/31 22:42 22:41 Patient left the ED. 1 ha1 11/01 02:01 10/31 22:10 Patient left the ED. ha1 ha1
[2022-10-31 19:07] LABS: Specific Gravity 1.009 (1.005-1.030); Urine Bacteria 20-50 /HPF (<20); Urine Bilirubin NEGATIVE (Negative); Urine Blood Trace (Negative); Urine Clarity Extremely Turbid (Clear); Urine Color Light-Orange (Yellow); Urine Glucose NEGATIVE (Negative); Urine Mucus Slight /HPF (None Seen); Urine Protein TRACE (Negative); Urine Urobilinogen Normal (Normal); Urine WBC Clump Occasional /HPF (None Seen)
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
--- NOTE | 2022-10-31 20:35 | P.HP ---
Certification for Inpatient Patient admitted to: Inpatient With expected LOS: <2 Midnights Patient will require the following post-hospital care: None Practitioner: I am a practitioner with admitting privileges, knowledge of patient current condition, hospital course, and medical plan of care. Services: Services provided to patient in accordance with Admission requirements found in Title 42 Section 412.3 of the Code of Federal Regulations Patient History Date of Service: 10/31/22 Reason for admission: Hyponatremia History of Present Illness: 67-year-old female with past medical history of HTN, CVA, DM presents to emergency room after family states she has not been eating, drinking, and has been more confused over the last week. They report she was only eating rice pudding, but is no long eating. She is currently on bedrest, total care, family is primary caregivers. They deny fever, chills, cough, NVD, cough, shortness of breath or chest pain. Plan to admit for Failure to thrive, hyponatremia, acute cystitis. Lab evaluation CMP Na 124, BUN 26, Cr 0.66, CBC WBC 14.70, nomocytic anemia HH 10.1, 30.8, left shift 83.8, UA leukoesterase >500, nitrate neg, few yeast, CXR IMPRESSION: No acute cardiopulmonary process. Allergies Unable to Assess Allergy (Unverified 10/31/22 21:28) Review of Systems 10-point ROS is otherwise unremarkable Physical Examination - Physical Exam General: Alert, Confused HEENT: Atraumatic, Normocephalic Neck: Supple, 2+ carotid pulse no bruit Respiratory: Clear to auscultation bilaterally, Normal air movement Cardiovascular: No edema, Normal pulses Capillary refill: <2 Seconds Gastrointestinal: Normal bowel sounds, Soft and benign Musculoskeletal: Other (moderate generalized weakness) Integumentary: No rashes, No breakdown Neurological: Other (AOx1, confused) - Studies Laboratory Data (last 24 hrs) 10/31/22 10/31/22 13:35 13:35 WBC 14.70 H Hgb 10.1 L Hct 30.8 L Plt Count 293 Sodium 124 L Potassium 3.8 BUN 26 H Creatinine 0.66 Glucose 166 H Total Bilirubin 0.4 AST 26 ALT 36 Alkaline Phosphatase 74 Assessment and Plan - Plan Assessment/Plan Failure to thrive hyponatremia acute kidney injury acute cystitis normocytic anemia HX CVA Total care HX HTN, HX DM DVT proplx Assessment/Plan Failure to thrive Eval need for Gtube feeding for poor po intake hyponatremia CMP Na 124, IV NS trend electrolytes, replace prn seizure precautions acute kidney injury BUN 26, Cr 0.66, acute cystitis IVF, IV ABX, UA leukoesterase >500, nitrate neg, few yeast, Lab evaluation CMP Na 124, BUN 26, Cr 0.66, CBC WBC 14.70, left shift 83.8, CXR IMPRESSION: No acute cardiopulmonary process. nomocytic anemia HH 10.1, 30.8, HX CVA speech/ Swallow eval Total care PT eval, fall precautions HX HTN, HX DM DVT proplx Loveox Diet npo advance after swallow eval Full Code Discharge Plan: Home - Advance Directives Does patient have a Living Will: No Does patient have a Durable POA for Healthcare: No - Code Status/Comfort Care Code Status: Full Code Physician Review: Patient Assessed, Agree with Above Assessment and Plan Critical Care: No Time Spent Managing Pts Care (In Minutes): 50
[2022-10-31] MEDS ORDERED: CEFTRIAXONE 1000 MG/VIAL ONE (20:41)
[2022-10-31] MEDS ORDERED: NA CHLORIDE 0.9% 50 ML ONE (20:42)
[2022-10-31] MEDS ORDERED: ONDANSETRON 4 MG/2 ML VIAL IV PRN (21:05)
[2022-10-31 22:59] VITALS: BMI 15.1
[2022-10-31 23:21] LABS: Magnesium 2.2 mg/dL (1.6-2.4)
[2022-11-01] MEDS: NA CHLORIDE 0.9% 1,000 ML IV SCH ×4 (01:44→22:59)
[2022-11-01 03:00] LABS: Absolute Lymphocytes (CBC) 1.2 K/uL (0.7-4.9); Hematocrit 29.2 % (36.0-45.0); Lymphocytes % 16.5 % (15.3-44.8); MCV 90.7 fL (80-100); MPV 7.6 fL (7.6-11.3); Platelets 220 thou/uL (152-406); RBC Red Blood Cell Count 3.23 M/uL (3.86-4.86)
[2022-11-01 03:20] LABS: Magnesium 2.1 mg/dL (1.6-2.4); Potassium 3.6 mEq/L (3.5-5.1)
[2022-11-01] MEDS ORDERED: KCL 20 MEQ/100 mL IVPB 100 ML IV ONE (05:56)
[2022-11-01] MEDS ORDERED: KCL 20 MEQ/100 mL IVPB 20 MEQ/100 ML BAG IV SCH (06:00)
[2022-11-01] MEDS: ENOXAPARIN 40 MG/0.4 ML SQ SCH (10:44)
[2022-11-01] MEDS: CEFTRIAXONE 1,000 MG in NA CHLORIDE 0.9% 50 ML IVPB SCH (10:44)
--- NOTE | 2022-11-01 13:42 | P.PN ---
Subjective Date of Service: 11/01/22 Chief Complaint: Hyponatremia Patient is Yakut speaking and cannot provide any history. Daughter reports prior history of stroke, history of advanced dementia. Worsening oral intake. No issues overnight, no agitation. Physical Examination - Vital Signs Temperature: 97.4 F Blood Pressure: 118/60 Pulse: 64 Respirations: 16 Pulse Ox (%): 99 - Studies Laboratory Data (last 24 hrs) 10/31/22 10/31/22 13:35 13:35 WBC 14.70 H Hgb 10.1 L Hct 30.8 L Plt Count 293 Sodium 124 L Potassium 3.8 BUN 26 H Creatinine 0.66 Glucose 166 H Total Bilirubin 0.4 AST 26 ALT 36 Alkaline Phosphatase 74 Assessment And Plan - Plan Physical Exam General: Awake, Confused Neck: Supple, no elevated JVD Respiratory: Clear to auscultation bilaterally, Normal air movement Cardiovascular: No edema, Normal pulses Gastrointestinal: Normal bowel sounds, Soft and benign, nontender Integumentary: No rashes, No breakdown Neurological: AOx1, left-sided weakness-chronic. Assessment/Plan Failure to thrive hyponatremia acute kidney injury acute cystitis normocytic anemia HX CVA Total care HX HTN, HX DM Assessment/Plan Failure to thrive Family is looking forward to UTI treatments see how she responds and feeding as tolerated. Family declining PEG tube for now. Continue IV hydration, hyponatremia CMP Na 124, IV NS Hyponatremia is improving. Continue hydration with normal seizure precautions Acute cystitis IVF, IV ABX, UA leukoesterase >500, nitrate neg, few yeast, Lab evaluation CMP Na 124, BUN 26, Cr 0.66, CBC WBC 14.70, left shift 83.8, Continue IV Rocephin. Follow urine culture result. nomocytic anemia HH 10.1, 30.8, HX CVA speech/ Swallow eval HX HTN, HX DM Resume home medications as appropriate DVT prophylaxis: Lovenox Full Code Physician Review: Patient Assessed, Agree with Above Assessment and Plan
[2022-11-01] MEDS ORDERED: NA CHLORIDE 0.9% 1,000 ML IV ONE (17:34)
[2022-11-02 04:42] LABS: Hematocrit 25.5 % (36.0-45.0); Lymphocytes % 27.3 % (15.3-44.8); MCV 91.2 fL (80-100); MPV 8.4 fL (7.6-11.3); Platelets 197 thou/uL (152-406)
[2022-11-02 05:24] LABS: Magnesium 2.1 mg/dL (1.6-2.4); Potassium 3.6 mEq/L (3.5-5.1)
[2022-11-02 05:44] LABS: Phosphorus 1.2 mg/dL (2.5-4.9)
[2022-11-02] MEDS ORDERED: POTASSIUM PHOS IN 0.9 % NACL 15 MMOL/250 ML BAG IV ONE (06:00)
[2022-11-02] MEDS: NA CHLORIDE 0.9% 1,000 ML IV SCH ×3 (06:41→17:38)
[2022-11-02] MEDS: CEFTRIAXONE 1,000 MG in NA CHLORIDE 0.9% 50 ML IVPB SCH (08:00)
[2022-11-02] MEDS: ENOXAPARIN 40 MG/0.4 ML SQ SCH (08:01)
--- NOTE | 2022-11-02 14:17 | P.PN ---
Subjective Date of Service: 11/02/22 Chief Complaint: Hyponatremia Patient is [place] speaking and cannot provide any history. No issues overnight No reported agitation. Physical Examination - Vital Signs Temperature: 97.5 F Blood Pressure: 123/70 Pulse: 61 Respirations: 16 Pulse Ox (%): 99 Assessment And Plan - Plan Physical Exam General: Awake, Confused Neck: Supple, no elevated JVD Respiratory: Clear to auscultation bilaterally, Normal air movement Cardiovascular: No edema, Normal pulses Gastrointestinal: Normal bowel sounds, Soft and benign, nontender Integumentary: No rashes, No breakdown Neurological: AOx1, left-sided weakness-chronic. Assessment/Plan Failure to thrive hyponatremia acute kidney injury acute cystitis normocytic anemia HX CVA Total care HX HTN, HX DM Assessment/Plan Failure to thrive Family is looking forward to patient response to treatment for UTI to see if her oral intake will improve Family declining PEG tube for now She failed swallow evaluation because she could not follow commands. Continue IV hydration. I suggested repeat swallow evaluation with the daughter present to interpret the instructions and if she fails to do ongoing evaluations. hyponatremia CMP Na 124, IV NS Hyponatremia has improved. Continue hydration with normal saline seizure precautions Acute cystitis UA leukoesterase >500, nitrate neg, few yeast, Urine culture is growing gram-negative rods. Continue IV Rocephin. Follow urine culture result. nomocytic anemia HH 10.1, 30.8, HX CVA Ongoing speech/ Swallow eval. She is currently bedbound. HX HTN, HX DM Resume home medications as appropriate once patient starts feeding. DVT prophylaxis: Lovenox Full Code
[2022-11-02] MEDS ORDERED: DIPHENHYDRAMINE 50 MG/ML VIAL IV PRN (21:30)
[2022-11-02] MEDS ORDERED: KETOROLAC 30 MG/ML INJ IV PRN (21:30)
[2022-11-03] MEDS: NA CHLORIDE 0.9% 1,000 ML IV SCH ×2 (02:59→09:05)
[2022-11-03 03:31] LABS: Hematocrit 26.6 % (36.0-45.0); Lymphocytes % 23.8 % (15.3-44.8); MCV 91.1 fL (80-100); MPV 7.8 fL (7.6-11.3); Platelets 203 thou/uL (152-406); RBC Red Blood Cell Count 2.92 M/uL (3.86-4.86)
[2022-11-03 03:36] LABS: Magnesium 2.3 mg/dL (1.6-2.4); Potassium 3.7 mEq/L (3.5-5.1)
[2022-11-03 03:39] LABS: Phosphorus 1.2 mg/dL (2.5-4.9)
[2022-11-03] MEDS ORDERED: D50W 25 GM/50 ML SYRINGE IV PRN (03:42)
[2022-11-03] MEDS ORDERED: GLUCAGON 1 MG/VIAL IV PRN (03:42)
[2022-11-03] MEDS ORDERED: POTASSIUM PHOS IN 0.9 % NACL 15 MMOL/250 ML BAG IV ONE (03:44)
[2022-11-03] MEDS ORDERED: D10W 125 ML IV PRN (03:46)
[2022-11-03] MEDS ORDERED: D10W 250 ML IV ONE (03:59)
[2022-11-03] MEDS: ENOXAPARIN 40 MG/0.4 ML SQ SCH (08:41)
[2022-11-03] MEDS: CEFTRIAXONE 1,000 MG in NA CHLORIDE 0.9% 50 ML IVPB SCH (09:10)
[2022-11-03] MEDS: D5 0.9 NS 1,000 ML IV SCH ×2 (13:04→22:09)
--- NOTE | 2022-11-03 14:12 | P.PN ---
Subjective Date of Service: 11/03/22 Chief Complaint: Hyponatremia Patient is Faroese speaking and cannot provide any history. No issues overnight No reported agitation. Patient became hypoglycemic last night. Physical Examination - Vital Signs Temperature: 97.8 F Blood Pressure: 164/80 Pulse: 72 Respirations: 16 Pulse Ox (%): 99 - Studies Microbiology Data (last 24 hrs): 10/31/22 18:42 Catheterized Urine Clemons Count - Final >100,000 CFU/ML. 10/31/22 18:42 Catheterized Urine - Final Escherichia Coli Gram Neg Alexandr Assessment And Plan - Plan Physical Exam General: Awake, Confused Neck: Supple, no elevated JVD Respiratory: Clear to auscultation bilaterally, Normal air movement Cardiovascular: No edema, Normal pulses Gastrointestinal: Normal bowel sounds, Soft and benign, nontender Integumentary: No rashes, No breakdown Neurological: AOx1, left-sided weakness-chronic. Assessment/Plan Failure to thrive hyponatremia acute kidney injury acute cystitis normocytic anemia HX CVA Total care HX HTN, HX DM Assessment/Plan Failure to thrive Family is looking forward to patient response to treatment for UTI to see if her oral intake will improve Family declining PEG tube for now She failed swallow evaluation because she could not follow commands. Continue IV hydration- D5 solution. Awaiting repeat swallow evaluation with the daughter present to interpret the instructions. Hyponatremia CMP Na 124, IV NS Hyponatremia has improved. Continue hydration with normal saline seizure precautions Acute cystitis UA leukoesterase >500, nitrate neg, few yeast, Urine culture is growing E. coli. Continue IV Rocephin. Follow urine culture result. Patient to complete 3 days of IV Rocephin. Normocytic anemia HH 10.1, 30.8, HX CVA Ongoing speech/ Swallow eval. She is currently bedbound. HX HTN, HX DM Resume home medications as appropriate once patient starts feeding. DVT prophylaxis: Lovenox. Full Code
[2022-11-04 05:49] LABS: Absolute Lymphocytes (CBC) 0.8 K/uL (0.7-4.9); Lymphocytes % 13.8 % (15.3-44.8); MCV 90.2 fL (80-100); MPV 7.1 fL (7.6-11.3); Platelets 213 thou/uL (152-406); RBC Red Blood Cell Count 3.32 M/uL (3.86-4.86)
[2022-11-04 06:02] LABS: Potassium 3.2 mEq/L (3.5-5.1)
[2022-11-04] MEDS: D5 0.9 NS 1,000 ML IV SCH (06:36)
[2022-11-04 08:36] VITALS: O2SAT 98
[2022-11-04] MEDS ORDERED: KCL 20 MEQ/100 mL IVPB 20 MEQ/100 ML BAG IV SCH (09:00)
[2022-11-04] MEDS: ENOXAPARIN 40 MG/0.4 ML SQ SCH (09:03)
[2022-11-04] MEDS: CEFTRIAXONE 1,000 MG in NA CHLORIDE 0.9% 50 ML IVPB SCH (09:03)
--- NOTE | 2022-11-04 14:24 | P.PN ---
Subjective Date of Service: 11/04/22 Chief Complaint: Hyponatremia Patient is Haitian speaking and cannot provide any history. She appears to be in a good mood and more interactive. No reported agitation. Physical Examination - Vital Signs Temperature: 98.0 F Blood Pressure: 136/75 Pulse: 71 Respirations: 16 Pulse Ox (%): 100 Assessment And Plan - Plan Physical Exam General: Awake, Confused Neck: Supple, no elevated JVD Respiratory: Clear to auscultation bilaterally, Normal air movement Cardiovascular: No edema, Normal pulses Gastrointestinal: Normal bowel sounds, Soft and benign, nontender Integumentary: No rashes, No breakdown Neurological: AOx1, left-sided weakness-chronic. Assessment/Plan Failure to thrive hyponatremia acute kidney injury acute cystitis normocytic anemia HX CVA Total care HX HTN, HX DM Assessment/Plan Failure to thrive Patient appears to be improving. Repeat swallow evaluation showed patient tolerated thin liquids and pured diet. She is tolerating dysphagia diet. Family declining PEG tube for now. Patient is currently hyperglycemic Discontinue D5 IV fluid. Hyponatremia Hyponatremia resolved. Continue oral feeding. Discontinue IV fluid. seizure precautions Acute cystitis UA leukoesterase >500, nitrate neg, few yeast, Urine culture is growing pansensitive E. coli. Continue IV Rocephin. Follow urine culture result. Transition IV Rocephin to oral Augmentin. Normocytic anemia Relatively stable. HX CVA Patient is tolerating oral dysphagia diet She is currently bedbound. HX HTN, HX DM Resume metoprolol, hold lisinopril hydrochlorothiazide. Hold metformin. Insulin sliding scale for glucose management. DVT prophylaxis: Lovenox. Full Code Disposition: Anticipating home with home health in a.m.
[2022-11-04] MEDS: ROSUVASTATIN 10 MG TAB PO SCH (15:00)
[2022-11-04] MEDS: METOPROLOL XL 100 MG TAB PO SCH (15:00)
[2022-11-04] MEDS: AMOX TR/K CLAV 400MG CHEW TAB PO SCH (20:11)
[2022-11-05 03:38] LABS: Absolute Lymphocytes (CBC) 1.1 K/uL (0.7-4.9); Hematocrit 28.2 % (36.0-45.0); Lymphocytes % 26.4 % (15.3-44.8); MCV 90.4 fL (80-100); MPV 7.5 fL (7.6-11.3); Platelets 210 thou/uL (152-406); RBC Red Blood Cell Count 3.12 M/uL (3.86-4.86)
[2022-11-05] MEDS: ROSUVASTATIN 10 MG TAB PO SCH (07:49)
[2022-11-05] MEDS: METOPROLOL XL 100 MG TAB PO SCH (07:49)
[2022-11-05] MEDS: ENOXAPARIN 40 MG/0.4 ML SQ SCH (07:50)
[2022-11-05] MEDS: AMOX TR/K CLAV 400MG CHEW TAB PO SCH (07:50)
[2022-11-05 07:55] VITALS: BP 131/65
[2022-11-05 08:20] VITALS: TEMP 97.5
[2022-11-05] MEDS ORDERED: HOME MED 1 EA UNK (Rosuvastatin Calcium [Crestor] 20 MG Tablet) PO SCH (09:00)
--- NOTE | 2022-11-05 11:35 | P.DS ---
Admission Date: 10/31/22 Discharge Date: 11/05/22 Disposition: DC HOME/HOME HEALTH CARE Discharge Condition: FAIR Reason for Admission: Hyponatremia Brief History of Present Illness: 67-year-old female with past medical history of HTN, CVA, DM presents to emergency room after family states she has not been eating, drinking, and has been more confused over the last week. They report she was only eating rice pudding, and then started refusing to eat. She is currently bedbound, total care. They denied any fever, chills, cough, NVD, cough, shortness of breath or chest pain. Plan to admit for Failure to thrive, hyponatremia, acute cystitis. Lab evaluation CMP Na 124, BUN 26, Cr 0.66, CBC WBC 14.70, nomocytic anemia HH 10.1, 30.8, left shift 83.8, UA leukoesterase >500, nitrate neg, few yeast, CXR IMPRESSION: No acute cardiopulmonary process. Patient was admitted for further management. Hospital Course: Diagnosis Failure to thrive Severe protein calorie malnutrition Hyponatremia Metabolic encephalopathy Acute kidney injury Acute cystitis normocytic anemia HX CVA Total care HX HTN, HX DM Assessment/Plan Failure to thrive/metabolic encephalopathy Patient treated with supportive measures-IV fluid-D5 NS. Swallow evaluation showed patient tolerated thin liquids and pured diet. She tolerated dysphagia diet. Family declined PEG tube placement. Clinically improved, patient is awake and interactive. Stable vitals. Nutritional supplementation. Hyponatremia Hyponatremia resolved. Patient treated with IV fluid and she later tolerated oral feeding. Acute cystitis UA leukoesterase >500, nitrate neg, few yeast, Urine culture is grew pansensitive E. coli. Patient treated with IV Rocephin and transition to oral Augmentin. Patient has poor dentition and oral Augmentin is to cover any dental infection Normocytic anemia Relatively stable. HX CVA Patient tolerated oral dysphagia diet She is currently bedbound. HX HTN, HX DM Resumes metoprolol during the hospital stay. Resumed lisinopril hydrochlorothiazide on discharge. Held metformin during the hospital stay and resumed it on discharge. Blood sugar managed with insulin sliding scale during inpatient stay. Vital Signs/Physical Exam: Temp Pulse Resp BP Pulse Ox 97.5 F 64 14 131/65 100 11/05/22 08:00 11/05/22 08:00 11/05/22 08:00 11/05/22 08:00 11/05/22 08:00 General: In no apparent distress, Other (Awake, cachectic) HEENT: Mucous membr. moist/pink, Other (Poor dentition) Neck: JVD not distended Respiratory: Clear to auscultation bilaterally, Normal air movement Cardiovascular: No edema, Regular rate/rhythm, Normal S1 S2 Gastrointestinal: Normal bowel sounds, Soft and benign, Non-distended Musculoskeletal: No tenderness Integumentary: No cyanosis Laboratory Data at Discharge: WBC 4.20 thou/uL (4.3-10.9) L 11/05/22 02:59 Hgb 9.4 g/dL (12.0-15.0) L 11/05/22 02:59 Hct 28.2 % (36.0-45.0) L 11/05/22 02:59 Plt Count 210 thou/uL (152-406) 11/05/22 02:59 Sodium 137 mEq/L (136-145) 11/05/22 02:59 Potassium 4.0 mEq/L (3.5-5.1) 11/05/22 02:59 BUN 7 mg/dL (7-18) 11/05/22 02:59 Creatinine 0.28 mg/dL (0.55-1.02) L 11/05/22 02:59 Glucose 84 mg/dL (74-106) 11/05/22 02:59 Phosphorus 1.2 mg/dL (2.5-4.9) L* 11/03/22 01:55 Magnesium 2.3 mg/dL (1.6-2.4) 11/03/22 01:55 Total Bilirubin 0.4 mg/dL (0.2-1.0) 10/31/22 13:35 AST 26 U/L (15-37) 10/31/22 13:35 ALT 36 U/L (13-56) 10/31/22 13:35 Alkaline Phosphatase 74 U/L (45-117) 10/31/22 13:35 Home Medications: Lisinopril/Hydrochlorothiazide [Lisinopril-Hctz 20-12.5 mg Tab] 1 each PO DAILY 10/31/22 Metformin HCl 500 mg PO DAILY 10/31/22 Metoprolol Succinate [Toprol Xl*] 100 mg PO DAILY 10/31/22 Rosuvastatin Calcium [Crestor] 20 mg PO DAILY 10/31/22 Amox/Clavulanate [Augmentin 400 mg Tab*] 800 mg PO BID #20 tab.chew 11/05/22 New Medications: Amox/Clavulanate [Augmentin 400 mg Tab*] 800 mg PO BID #20 tab.chew Diet: Regular (Pureed, thin liquids, small bites.) Activity: Fall precautions Followup: NONE,NONE [Primary Care Provider] - Time spent managing pt's care (in minutes): 38
== END 2022-11-05 15:44 | disposition home health service (06) | DRG 640 ==
LOC: ER 12:42 → 2ND 20:58
PROVIDERS: ADMIT Internal Medicine; ATTEND Internal Medicine
DX: E87.1 Hypo-osmolality and hyponatremia (principal); E43 Unspecified severe protein-calorie malnutrition; R53.2 Functional quadriplegia; G93.41 Metabolic encephalopathy; N30.00 Acute cystitis without hematuria; Z68.1 Body mass index [BMI] 19.9 or less, adult; R64 Cachexia; N17.9 Acute kidney failure, unspecified; I10 Essential (primary) hypertension; E11.649 Type 2 diabetes mellitus with hypoglycemia without coma; D64.9 Anemia, unspecified; E78.00 Pure hypercholesterolemia, unspecified; B96.20 Unspecified Escherichia coli [E. coli] as the cause of diseases classified elsewhere; Z86.73 Personal history of transient ischemic attack (TIA), and cerebral infarction without residual deficits; Z74.01 Bed confinement status; Z79.84 Long term (current) use of oral hypoglycemic drugs; Z79.899 Other long term (current) drug therapy
CPT/HCPCS: 36415; 51702; 71045; 80048; 80053; 81001; 82947; 83605; 83735; 84100; 84132; 85025; 87077; 87086; 87088; 87186; 92610; 96365; 97161; 99285; J0696; J1200; J1610; J1650; J3480; J7030; J7040; J7042